=== PATIENT | female | born 1955 | race Caucasian/White ===

== ENCOUNTER 2019-12-19 07:56 | Outpatient (REF) | payer MEDICARE, SELFPAY ==
[2019-12-19 11:30] LABS: C Reactive Protein 0.76 mg/dL (< or = 0.50)
[2019-12-19 12:09] LABS: Erythrocyte Sedimentation Rate 5 MM/HR (0-20)
== END 2019-12-19 07:57 | disposition home or self-care (01) ==
LOC: HO.HMGCLDS 07:56
PROVIDERS: PCP Internal Medicine; Visit Provider Student in an Organized Health Care Education/Training Program
DX: M35.3 Polymyalgia rheumatica (principal); Z79.52 Long term (current) use of systemic steroids
CPT/HCPCS: 36415; 85652; 86140

== ENCOUNTER → 2019-12-23 14:12 | Outpatient (BNVA) | payer MEDICARE, SELFPAY | PROVIDERS: PCP Internal Medicine; Referring Provider Internal Medicine; Visit Provider Student in an Organized Health Care Education/Training Program | DX: M35.3 Polymyalgia rheumatica (principal); M65.4 Radial styloid tenosynovitis [de Quervain]; G56.02 Carpal tunnel syndrome, left upper limb; Z79.52 Long term (current) use of systemic steroids | CPT/HCPCS: 29125; 99214 ==

== ENCOUNTER 2020-02-13 09:19 | Outpatient (REF) | payer MEDICARE, SELFPAY ==
[2020-02-13 12:12] LABS: C Reactive Protein 0.81 mg/dL (< or = 0.50)
[2020-02-13 12:38] LABS: Erythrocyte Sedimentation Rate 6 MM/HR (0-20)
== END 2020-02-13 09:20 | disposition home or self-care (01) ==
LOC: HO.HMGCLDS 09:19
PROVIDERS: Student in an Organized Health Care Education/Training Program; PCP Internal Medicine; Visit Provider Internal Medicine
DX: M35.3 Polymyalgia rheumatica (principal); M81.0 Age-related osteoporosis without current pathological fracture; E55.9 Vitamin D deficiency, unspecified; E21.0 Primary hyperparathyroidism
CPT/HCPCS: 36415; 85652; 86140

== ENCOUNTER → 2020-02-16 11:11 | Outpatient (BNVA) | payer MEDICARE, SELFPAY | PROVIDERS: PCP Internal Medicine; Referring Provider Internal Medicine; Visit Provider Internal Medicine | DX: Z13.89 Encounter for screening for other disorder (principal) | CPT/HCPCS: Q3014 ==

== ENCOUNTER 2020-03-05 13:52 | Outpatient (REF) | payer MEDICARE, SELFPAY ==
[2020-03-05 17:02] LABS: C Reactive Protein 0.88 mg/dL (< or = 0.50)
[2020-03-05 18:31] LABS: Erythrocyte Sedimentation Rate 6 MM/HR (0-20)
== END 2020-03-05 13:53 | disposition home or self-care (01) ==
LOC: HO.HMGCLDS 13:52
PROVIDERS: PCP Internal Medicine; Visit Provider Student in an Organized Health Care Education/Training Program
DX: M35.3 Polymyalgia rheumatica (principal)
CPT/HCPCS: 36415; 85652; 86140

== ENCOUNTER → 2020-03-08 14:11 | Outpatient (BNVA) | payer MEDICARE, SELFPAY | PROVIDERS: PCP Internal Medicine; Visit Provider Student in an Organized Health Care Education/Training Program | DX: Z13.89 Encounter for screening for other disorder (principal) | CPT/HCPCS: Q3014 ==

== ENCOUNTER 2020-05-07 10:13 | Outpatient (REF) | payer MEDICARE, SELFPAY ==
[2020-05-07 11:38] LABS: C Reactive Protein 1.07 mg/dL (< or = 0.50)
[2020-05-07 13:31] LABS: Erythrocyte Sedimentation Rate 5 MM/HR (0-20)
== END 2020-05-07 10:14 | disposition home or self-care (01) ==
LOC: HO.HMGCLDS 10:13
PROVIDERS: PCP Internal Medicine; Visit Provider Student in an Organized Health Care Education/Training Program
DX: M35.3 Polymyalgia rheumatica (principal)
CPT/HCPCS: 36415; 85652; 86140

== ENCOUNTER → 2020-05-10 11:00 | Outpatient (BNVA) | payer MEDICARE, SELFPAY | PROVIDERS: PCP Internal Medicine; Visit Provider Student in an Organized Health Care Education/Training Program | DX: M35.3 Polymyalgia rheumatica (principal); Z79.52 Long term (current) use of systemic steroids; Z79.899 Other long term (current) drug therapy; Z87.891 Personal history of nicotine dependence | CPT/HCPCS: 99212 ==

== ENCOUNTER 2020-06-26 11:43 | Outpatient (REF) | payer MEDICARE, SELFPAY ==
[2020-06-26 14:40] LABS: C Reactive Protein 0.99 mg/dL (< or = 0.50)
[2020-06-26 15:14] LABS: Erythrocyte Sedimentation Rate 6 MM/HR (0-20)
== END 2020-06-26 11:44 | disposition home or self-care (01) ==
LOC: HO.HMGCLDS 11:43
PROVIDERS: PCP Internal Medicine; Visit Provider Student in an Organized Health Care Education/Training Program
DX: M35.3 Polymyalgia rheumatica (principal)
CPT/HCPCS: 36415; 85652; 86140

== ENCOUNTER → 2020-07-19 11:46 | Outpatient (BNVA) | payer MEDICARE, SELFPAY | PROVIDERS: PCP Internal Medicine; Visit Provider Student in an Organized Health Care Education/Training Program | DX: M35.3 Polymyalgia rheumatica (principal); Z79.52 Long term (current) use of systemic steroids | CPT/HCPCS: 99212 ==

== ENCOUNTER 2020-07-31 10:05 | Outpatient (REF) | payer MEDICARE, SELFPAY ==
[2020-07-31 12:00] LABS: Albumin Level 4.2 g/dL (3.5-5.0); Calcium 9.9 mg/dL (8.4-10.2)
[2020-07-31 12:10] LABS: C Reactive Protein 0.58 mg/dL (< or = 0.50)
[2020-07-31 12:26] LABS: Erythrocyte Sedimentation Rate 3 MM/HR (0-20)
[2020-07-31 12:29] LABS: Alanine Aminotransferase 21 U/L (0-31); Aspartate Amino Transferase 16 U/L (5-31); Cholesterol 228 mg/dL; Estimated Glomerular Filt Rate > 60; HDL Cholesterol 70 mg/dL; LDL Cholesterol Calculated 137 mg/dl; Phosphorus 3.1 mg/dL (2.7-4.5); Triglycerides 105 mg/dL; Vitamin D 25-OH Total 30.4 ng/mL (>30)
[2020-08-02 09:21] LABS: PTHI 76 pg/mL (14-64)
[2020-08-08 06:21] LABS: N-Telopeptide 14 (see note); NTXCreaRU 46 mg/dL (20-275)
== END 2020-07-31 10:06 | disposition home or self-care (01) ==
LOC: HO.HMGCLDS 10:05
PROVIDERS: PCP Internal Medicine; Referring Provider Internal Medicine; Visit Provider Student in an Organized Health Care Education/Training Program
DX: M35.3 Polymyalgia rheumatica (principal); E78.5 Hyperlipidemia, unspecified; M81.0 Age-related osteoporosis without current pathological fracture; E55.9 Vitamin D deficiency, unspecified
CPT/HCPCS: 36415; 80061; 82040; 82306; 82310; 82523; 82565; 83970; 84100; 84450; 84460; 85652; 86140

== ENCOUNTER 2020-09-18 10:00 | Outpatient (REF) | payer MEDICARE, SELFPAY ==
[2020-09-18 11:51] LABS: C Reactive Protein 0.82 mg/dL (< or = 0.50)
[2020-09-18 12:20] LABS: Erythrocyte Sedimentation Rate 5 MM/HR (0-20)
== END 2020-09-18 10:01 | disposition home or self-care (01) ==
LOC: HO.HMGCLDS 10:00
PROVIDERS: PCP Internal Medicine; Visit Provider Student in an Organized Health Care Education/Training Program
DX: M35.3 Polymyalgia rheumatica (principal)
CPT/HCPCS: 36415; 85652; 86140

== ENCOUNTER → 2020-09-26 09:58 | Outpatient (BNVA) | payer MEDICARE, SELFPAY | PROVIDERS: PCP Internal Medicine; Visit Provider Student in an Organized Health Care Education/Training Program | DX: M35.3 Polymyalgia rheumatica (principal); Z79.52 Long term (current) use of systemic steroids | CPT/HCPCS: 99212 ==

== ENCOUNTER 2020-11-14 09:48 | Outpatient (REF) | payer MEDICARE, SELFPAY ==
[2020-11-14 12:12] LABS: Alanine Aminotransferase 23 U/L (0-31); Albumin Level 4.3 g/dL (3.5-5.0); Alkaline Phosphatase 74 U/L (39-117); Anion Gap 11 (12-20); Aspartate Amino Transferase 16 U/L (5-31); Bilirubin Total 0.7 mg/dL (0.0-1.0); Blood Urea Nitrogen 9 mg/dL (9-16); C Reactive Protein 0.58 mg/dL (< or = 0.50); Carbon Dioxide 24 mmol/L (22-29); Chloride 110 mmol/L (96-108); Estimated Glomerular Filt Rate > 60; Glucose Random 105 mg/dL (60-115); Phosphorus 2.8 mg/dL (2.7-4.5); Potassium 4.1 mmol/L (3.3-5.1); Sodium 141 mmol/L (135-145); Total Protein 6.3 g/dL (6.5-8.0)
[2020-11-14 12:36] LABS: Erythrocyte Sedimentation Rate 6 MM/HR (0-20)
[2020-11-14 14:55] LABS: Vitamin D 25-OH Total 31.8 ng/mL (>30)
[2020-11-16 12:12] LABS: Calcium (PTHI) 9.9 mg/dL (8.6-10.4); PTHI 77 pg/mL (14-64)
[2020-11-21 15:01] LABS: N-Telopeptide 24 (see note); NTXCreaRU 75 mg/dL (20-275)
== END 2020-11-14 09:49 | disposition home or self-care (01) ==
LOC: HO.HMGCLDS 09:48
PROVIDERS: Absent Provider Internal Medicine; PCP Internal Medicine; Visit Provider Student in an Organized Health Care Education/Training Program
DX: M35.3 Polymyalgia rheumatica (principal); E55.9 Vitamin D deficiency, unspecified; M81.0 Age-related osteoporosis without current pathological fracture
CPT/HCPCS: 36415; 80053; 82306; 82523; 83970; 84100; 85652; 86140

== ENCOUNTER → 2020-11-19 12:35 | Outpatient (BNVA) | payer MEDICARE, SELFPAY | PROVIDERS: PCP Internal Medicine; Visit Provider Internal Medicine | DX: M81.0 Age-related osteoporosis without current pathological fracture (principal); E55.9 Vitamin D deficiency, unspecified; E21.0 Primary hyperparathyroidism; E04.9 Nontoxic goiter, unspecified; M35.3 Polymyalgia rheumatica; I10 Essential (primary) hypertension; E78.5 Hyperlipidemia, unspecified; Z87.891 Personal history of nicotine dependence; J30.1 Allergic rhinitis due to pollen; Z88.1 Allergy status to other antibiotic agents; Z91.040 Latex allergy status; Z88.8 Allergy status to other drugs, medicaments and biological substances; Z91.048 Other nonmedicinal substance allergy status; Z79.52 Long term (current) use of systemic steroids; Z79.899 Other long term (current) drug therapy | CPT/HCPCS: 99212 ==

== ENCOUNTER → 2020-11-28 07:57 | Outpatient (BNVA) | payer MEDICARE, SELFPAY | PROVIDERS: PCP Internal Medicine; Visit Provider Nurse Practitioner Family | DX: M35.3 Polymyalgia rheumatica (principal); Z79.52 Long term (current) use of systemic steroids | CPT/HCPCS: 99212 ==

== ENCOUNTER 2020-12-28 09:21 | Outpatient (REF) | payer MEDICARE, SELFPAY ==
[2020-12-28 11:54] LABS: Alanine Aminotransferase 18 U/L (0-31); Anion Gap 11 (12-20); Aspartate Amino Transferase 14 U/L (5-31); Blood Urea Nitrogen 14 mg/dL (9-16); C Reactive Protein 2.82 mg/dL (< or = 0.50); Calcium 9.8 mg/dL (8.4-10.2); Carbon Dioxide 24 mmol/L (22-29); Chloride 106 mmol/L (96-108); Cholesterol 222 mg/dL; Estimated Glomerular Filt Rate > 60; Glucose Fasting 110 mg/dL (60-99); HDL Cholesterol 62 mg/dL; LDL Cholesterol Calculated 139 mg/dl; Potassium 4.7 mmol/L (3.3-5.1); Sodium 136 mmol/L (135-145); Triglycerides 107 mg/dL
[2020-12-28 12:16] LABS: Erythrocyte Sedimentation Rate 7 MM/HR (0-20)
== END 2020-12-28 09:22 | disposition home or self-care (01) ==
LOC: HO.HMGCLDS 09:21
PROVIDERS: PCP Internal Medicine; Visit Provider Nurse Practitioner Family
DX: E78.5 Hyperlipidemia, unspecified (principal); I10 Essential (primary) hypertension; M35.3 Polymyalgia rheumatica
CPT/HCPCS: 36415; 80048; 80061; 84450; 84460; 85652; 86140

== ENCOUNTER 2021-01-04 08:10 | Outpatient (REF) | payer MEDICARE, SELFPAY | END 2021-01-04 08:11 | disposition home or self-care (01) | LOC: HO.MDS 08:10 | PROVIDERS: PCP Internal Medicine; Visit Provider Internal Medicine | DX: M81.0 Age-related osteoporosis without current pathological fracture (principal); Z79.83 Long term (current) use of bisphosphonates | CPT/HCPCS: 96365; J3489 ==

== ENCOUNTER 2021-01-09 12:56 | Outpatient (REF) | payer MEDICARE, SELFPAY ==
[2021-01-09 14:34] LABS: C Reactive Protein 1.23 mg/dL (< or = 0.50)
[2021-01-09 14:59] LABS: Erythrocyte Sedimentation Rate 7 MM/HR (0-20)
== END 2021-01-09 12:57 | disposition home or self-care (01) ==
LOC: HO.HMGCLDS 12:56
PROVIDERS: PCP Internal Medicine; Visit Provider Nurse Practitioner Family
DX: M35.3 Polymyalgia rheumatica (principal)
CPT/HCPCS: 36415; 85652; 86140

== ENCOUNTER 2021-02-06 10:23 | Outpatient (REF) | payer MEDICARE, SELFPAY ==
[2021-02-06 11:53] LABS: C Reactive Protein 1.04 mg/dL (< or = 0.50)
[2021-02-06 12:21] LABS: Erythrocyte Sedimentation Rate 2 MM/HR (0-20)
== END 2021-02-06 10:24 | disposition home or self-care (01) ==
LOC: HO.HMGCLDS 10:23
PROVIDERS: PCP Internal Medicine; Visit Provider Nurse Practitioner Family
DX: M35.3 Polymyalgia rheumatica (principal)
CPT/HCPCS: 36415; 85652; 86140

== ENCOUNTER → 2021-02-13 09:27 | Outpatient (BNVA) | payer MEDICARE, SELFPAY | PROVIDERS: PCP Internal Medicine; Visit Provider Nurse Practitioner Family | DX: M35.3 Polymyalgia rheumatica (principal); Z79.52 Long term (current) use of systemic steroids | CPT/HCPCS: 99212 ==

== ENCOUNTER 2021-04-10 11:11 | Outpatient (REF) | payer MEDICARE, SELFPAY ==
[2021-04-10 14:39] LABS: Erythrocyte Sedimentation Rate 5 MM/HR (0-20)
== END 2021-04-10 11:12 | disposition home or self-care (01) ==
LOC: HO.HMGCLDS 11:11
PROVIDERS: PCP Internal Medicine; Visit Provider Nurse Practitioner Family
DX: M35.3 Polymyalgia rheumatica (principal)
CPT/HCPCS: 36415; 85652; 86140

== ENCOUNTER → 2021-04-17 09:33 | Outpatient (BNVA) | payer MEDICARE, SELFPAY | PROVIDERS: PCP Internal Medicine; Visit Provider Nurse Practitioner Family | DX: M35.3 Polymyalgia rheumatica (principal); Z79.52 Long term (current) use of systemic steroids | CPT/HCPCS: 99212 ==

== ENCOUNTER 2021-04-25 08:52 | Outpatient (REF) | payer MEDICARE, SELFPAY ==
--- NOTE | ~2021-04-25 | XR_ITS ---
EXAMINATION: BILATERAL HAND/WRIST CLINICAL INFORMATION: Pain left hand. COMPARISON: None TECHNIQUE: 3 views each hand/wrist FINDINGS: BILATERAL HAND/WRIST: there is no visible acute fracture, dislocation subluxation. Minimal loss of PIP and DIP joint space without bony erosive changes or periarticular spurring. The soft tissues are normal. XR/XR hand wrist RT IMPRESSION: Mild early degenerative changes PIP and DIP joints. No visible acute fracture or dislocation seen.
--- NOTE | ~2021-04-25 | XR_ITS ---
EXAMINATION: BILATERAL HAND/WRIST CLINICAL INFORMATION: Pain left hand. COMPARISON: None TECHNIQUE: 3 views each hand/wrist FINDINGS: BILATERAL HAND/WRIST: there is no visible acute fracture, dislocation subluxation. Minimal loss of PIP and DIP joint space without bony erosive changes or periarticular spurring. The soft tissues are normal. XR/XR hand wrist LT IMPRESSION: Mild early degenerative changes PIP and DIP joints. No visible acute fracture or dislocation seen.
[2021-04-25 11:26] LABS: Baso%MD 0.2 %; Eos%MD 1.2 %; Hematocrit 42.7 % (37.0-47.0); Hemoglobin 14.5 g/dl (12.0-16.0); IG%MD 0.5 %; Lymph%MD 21.2 %; Mean Corpuscular Hemoglobin 33.1 pg (27.0-33.0); Mean Corpuscular Volume 97.5 fL (80.0-98.0); Mean Platelet Volume 12.5 fL (9.4-12.3); Mono%MD 6.4 %; Neut%MD 70.5 %; Platelet Count 136 X10*3/uL (160-400); Red Blood Count 4.38 X10*6/uL (4.20-5.50); Red Cell Distribution Width 13.9 % (11.0-16.0); White Blood Count 9.3 X10*3/uL (4.8-10.8)
[2021-04-25 11:55] LABS: Alanine Aminotransferase 18 U/L (0-31); Albumin Level 4.2 g/dL (3.5-5.0); Alkaline Phosphatase 63 U/L (39-117); Anion Gap 10 (12-20); Aspartate Amino Transferase 16 U/L (5-31); Bilirubin Total 0.7 mg/dL (0.0-1.0); Blood Urea Nitrogen 12 mg/dL (9-16); C Reactive Protein 0.63 mg/dL (< or = 0.50); Calcium 10.1 mg/dL (8.4-10.2); Carbon Dioxide 27 mmol/L (22-29); Chloride 108 mmol/L (96-108); Estimated Glomerular Filt Rate > 60; Glucose Random 98 mg/dL (60-115); Potassium 3.9 mmol/L (3.3-5.1); Sodium 141 mmol/L (135-145); Total Protein 6.3 g/dL (6.5-8.0)
[2021-04-25 12:07] LABS: Rheumatoid Factor < 15.0 IU/mL (<15.0)
[2021-04-25 12:10] LABS: Erythrocyte Sedimentation Rate 2 MM/HR (0-20)
[2021-04-25 12:22] LABS: Band Neutrophils Percent 2 % (3-5); Basophils Abs Manual 0.1 X10*3/uL (0.0-0.2); Basophils Percent Manual 1 % (0-2); Eosinophils Absolute Manual 0.1 X10*3/uL (0.0-0.4); Eosinophils Percent Manual 1 % (0-4); Large Platelet PRESENT; Lymphocytes Absolute Manual 1.7 X10*3/uL (1.2-4.9); Lymphocytes Percent Manual 18 % (20-40); Monocytes Absolute Manual 0.6 X10*3/uL (0.1-1.2); Monocytes Percent Manual 6 % (2-11); Neutrophils Absolute Manual 6.9 X10*3/uL (2.0-8.3); Neutrophils Percent Manual 72 % (45-73); Platelet Estimate SLIGHTLY DECREASED (NORMAL); Platelet Morphology Comment NOTED; RBC Morphology NORMAL
[2021-04-29 11:17] LABS: Cyclic Citrullinated Peptide <16 UNITS
== END 2021-04-25 08:53 | disposition home or self-care (01) ==
LOC: HO.HMGCX 08:52
PROVIDERS: PCP Internal Medicine; Visit Provider Nurse Practitioner Family
DX: M79.641 Pain in right hand (principal); M79.642 Pain in left hand
CPT/HCPCS: 36415; 73110; 73130; 80053; 85007; 85027; 85652; 86140; 86200; 86431

== ENCOUNTER 2021-06-06 11:52 | Outpatient (REF) | payer MEDICARE, SELFPAY ==
[2021-06-06 14:15] LABS: C Reactive Protein 0.78 mg/dL (< or = 0.50)
[2021-06-06 14:49] LABS: Erythrocyte Sedimentation Rate 7 MM/HR (0-20)
== END 2021-06-06 11:53 | disposition home or self-care (01) ==
LOC: HO.HMGCLDS 11:52
PROVIDERS: Visit Provider Nurse Practitioner Family
DX: M35.3 Polymyalgia rheumatica (principal)
CPT/HCPCS: 36415; 85652; 86140

== ENCOUNTER → 2021-06-11 10:27 | Outpatient (BNVA) | payer MEDICARE, SELFPAY | PROVIDERS: PCP Internal Medicine; Visit Provider Nurse Practitioner Family | DX: M35.3 Polymyalgia rheumatica (principal); Z79.52 Long term (current) use of systemic steroids | CPT/HCPCS: 99212 ==

== ENCOUNTER 2021-07-05 07:38 | Outpatient (REF) | payer MEDICARE, SELFPAY ==
[2021-07-05 11:44] LABS: Cholesterol 221 mg/dL; Glucose Fasting 110 mg/dL (60-99); HDL Cholesterol 64 mg/dL; LDL Cholesterol Calculated 140 mg/dl; Triglycerides 86 mg/dL
== END 2021-07-05 07:39 | disposition home or self-care (01) ==
LOC: HO.HMGCLDS 07:38
PROVIDERS: Visit Provider Internal Medicine
DX: Z00.01 Encounter for general adult medical examination with abnormal findings (principal); Z13.220 Encounter for screening for lipoid disorders; Z13.29 Encounter for screening for other suspected endocrine disorder; R73.01 Impaired fasting glucose; E78.5 Hyperlipidemia, unspecified; E78.00 Pure hypercholesterolemia, unspecified; I10 Essential (primary) hypertension; Z79.52 Long term (current) use of systemic steroids
CPT/HCPCS: 36415; 80061; 82947

== ENCOUNTER 2021-09-23 09:54 | Outpatient (REF) | payer MEDICARE, SELFPAY ==
[2021-09-23 11:48] LABS: C Reactive Protein 1.41 mg/dL (< or = 0.50)
[2021-09-23 12:15] LABS: Erythrocyte Sedimentation Rate 7 MM/HR (0-20)
== END 2021-09-23 09:55 | disposition home or self-care (01) ==
LOC: HO.HMGCLDS 09:54
PROVIDERS: Visit Provider Nurse Practitioner Family
DX: M35.3 Polymyalgia rheumatica (principal)
CPT/HCPCS: 36415; 85652; 86140

== ENCOUNTER → 2021-09-24 07:49 | Outpatient (BNVA) | payer MEDICARE, SELFPAY | PROVIDERS: PCP Internal Medicine; Visit Provider Nurse Practitioner Family | DX: M35.3 Polymyalgia rheumatica (principal); Z79.52 Long term (current) use of systemic steroids | CPT/HCPCS: Q3014 ==

== ENCOUNTER 2021-10-31 11:02 | Outpatient (REF) | payer MEDICARE, SELFPAY ==
[2021-10-31 14:38] LABS: Alanine Aminotransferase 16 U/L (0-31); Albumin Level 4.2 g/dL (3.5-5.0); Alkaline Phosphatase 76 U/L (39-117); Anion Gap 14 (12-20); Aspartate Amino Transferase 14 U/L (5-31); Bilirubin Total 0.4 mg/dL (0.0-1.0); Blood Urea Nitrogen 9 mg/dL (9-16); Calcium 9.9 mg/dL (8.4-10.2); Carbon Dioxide 22 mmol/L (22-29); Chloride 108 mmol/L (96-108); Estimated Glomerular Filt Rate > 60; Glucose Random 103 mg/dL (60-115); Phosphorus 2.8 mg/dL (2.7-4.5); Potassium 4.2 mmol/L (3.3-5.1); Sodium 140 mmol/L (135-145); Total Protein 6.4 g/dL (6.5-8.0)
[2021-10-31 15:00] LABS: Erythrocyte Sedimentation Rate 5 MM/HR (0-20)
[2021-11-01 13:12] LABS: PTHI 76 pg/mL (16-77)
== END 2021-10-31 11:03 | disposition home or self-care (01) ==
LOC: HO.HMGCLDS 11:02
PROVIDERS: Internal Medicine; PCP Internal Medicine; Visit Provider Nurse Practitioner Family
DX: M81.0 Age-related osteoporosis without current pathological fracture (principal); M35.3 Polymyalgia rheumatica; E55.9 Vitamin D deficiency, unspecified
CPT/HCPCS: 36415; 80053; 82306; 83970; 84100; 85652; 86140

== ENCOUNTER → 2021-11-08 09:07 | Outpatient (BNVA) | payer MEDICARE, SELFPAY | PROVIDERS: PCP Internal Medicine; Visit Provider Nurse Practitioner Family | DX: M35.3 Polymyalgia rheumatica (principal); Z79.52 Long term (current) use of systemic steroids | CPT/HCPCS: 99212 ==

== ENCOUNTER → 2021-11-25 12:26 | Outpatient (BNVA) | payer MEDICARE, SELFPAY | PROVIDERS: PCP Internal Medicine; Visit Provider Internal Medicine | DX: M81.0 Age-related osteoporosis without current pathological fracture (principal); E55.9 Vitamin D deficiency, unspecified; E21.3 Hyperparathyroidism, unspecified; E04.9 Nontoxic goiter, unspecified | CPT/HCPCS: 99212 ==

== ENCOUNTER 2021-12-18 09:51 | Outpatient (REF) | payer MEDICARE, SELFPAY ==
--- NOTE | ~2021-12-18 | US_ITS ---
EXAMINATION: US THYROID CLINICAL INFORMATION: Nontoxic goiter, unspecified. COMPARISON: None TECHNIQUE: Linear transducer grayscale and color Doppler examination with attention to the region of the thyroid. FINDINGS: SIZE: Measurements of the thyroid lobes and nodules are given in sagittal, anteroposterior and transverse dimensions respectively. Right Thyroid Lobe: 5.2 x 1.8 x 1.8 cm, volume 8.8 mL. Parenchyma: The gland echotexture is homogeneous. Thyroid vascularity is normal. Left Thyroid Lobe: 5.3 x 1.7 x 1.9 cm, volume 9.0 mL. Parenchyma: The gland echotexture is homogeneous. Thyroid vascularity is normal. Isthmus: 0.3 cm in maximum AP dimension. Estimated total number of nodules greater than or equal to 1 cm: 0. Agricultural Research Director nodules are described as follows: 1. Location: Left lower pole. Size: 0.9 x 0.4 x 0.6 cm, volume 0.12 mL. Nodule characteristics: Composition: Spongiform (0). ACR TI-RADS total points: 0 ACR TI-RADS category: 1 2. Location: Left lower pole. Size: 0.6 x 0.4 x 0.4 cm, volume 0.05 mL. Nodule characteristics: Composition: Spongiform (0). ACR TI-RADS total points: 0 ACR TI-RADS category: 1 NODES: No lymphadenopathy is seen in the tissue surrounding the thyroid gland. US/US thyroid IMPRESSION: Upper normal-size thyroid gland. Small bilateral thyroid nodules. ACR TI-RADS RECOMMENDATION REFERENCE: Ultrasound-guided fine-needle aspiration, followup ultrasound, no further follow up. * TR1 (0 point) and TR 2 (2 points): No FNA or follow up. * TR3 (3 points): FNA if more than or equal to 2.5 cm in maximum dimension, followup ultrasound in 1, 3 and 5 years if 1.5 to 2.4 cm in maximum dimension. * TR4 (4-6 points): FNA if more than or equal to 1.5 cm in maximum dimension, followup ultrasound in 1, 2, 3 and 5 years if 1 to 1.4 cm in maximum dimension. * TR5 (more than or equal to 7 points): FNA if more than or equal to 1 cm in maximum dimension, followup ultrasound every year for 5 years if 0.5 to 0.9 cm in maximum dimension. * TR3, TR4 or TR5 nodules that are below the size threshold for followup receive no follow up.
== END 2021-12-18 09:52 | disposition home or self-care (01) ==
LOC: HO.HMGCX 09:51
PROVIDERS: PCP Internal Medicine; Visit Provider Internal Medicine
DX: E04.9 Nontoxic goiter, unspecified (principal)
CPT/HCPCS: 76536

== ENCOUNTER 2021-12-24 09:54 | Outpatient (REF) | payer MEDICARE, SELFPAY ==
--- NOTE | ~2021-12-24 | XR_ITS ---
EXAMINATION: XR SHOULDER, RIGHT XR SHOULDER, LEFT CLINICAL INFORMATION: Bilateral shoulder pain. COMPARISON: Chest radiographs 08/06/2018 TECHNIQUE: Each shoulder is imaged in 4 views. There are a total of 8 views. FINDINGS: Right: Normal bony mineralization. No fracture, dislocation, destructive process. The acromioclavicular alignment is normal. There are degenerative changes acromioclavicular joint. Minor spurring is present inferior medial humeral head and at the inferior glenoid rim likely related to the inferior glenohumeral ligament. No joint glenohumeral narrowing or erosive change. Axial view shows fine calcification adjacent to the lesser tuberosity likely involving the subscapularis. Left: Normal bony mineralization. No fracture, dislocation, destructive process. The acromioclavicular alignment is normal. There are degenerative changes acromioclavicular joint. Minor spurring is present inferior medial humeral head and at the inferior glenoid rim likely related to the inferior glenohumeral ligament. No glenohumeral joint narrowing or erosive change. There is mild elevation of the humeral head which may suggest rotator cuff degeneration. No visible rotator cuff calcifications. XR/XR shoulder LT min 2V IMPRESSION: Right: -Degenerative changes acromioclavicular joint. -Calcific tendinosis in region of distal subscapularis. Left: -Degenerative changes acromioclavicular joint. -Mild elevation humeral head which may be associated with rotator cuff degeneration. No visible rotator cuff calcification.
--- NOTE | ~2021-12-24 | XR_ITS ---
EXAMINATION: XR SHOULDER, RIGHT XR SHOULDER, LEFT CLINICAL INFORMATION: Bilateral shoulder pain. COMPARISON: Chest radiographs 08/06/2018 TECHNIQUE: Each shoulder is imaged in 4 views. There are a total of 8 views. FINDINGS: Right: Normal bony mineralization. No fracture, dislocation, destructive process. The acromioclavicular alignment is normal. There are degenerative changes acromioclavicular joint. Minor spurring is present inferior medial humeral head and at the inferior glenoid rim likely related to the inferior glenohumeral ligament. No joint glenohumeral narrowing or erosive change. Axial view shows fine calcification adjacent to the lesser tuberosity likely involving the subscapularis. Left: Normal bony mineralization. No fracture, dislocation, destructive process. The acromioclavicular alignment is normal. There are degenerative changes acromioclavicular joint. Minor spurring is present inferior medial humeral head and at the inferior glenoid rim likely related to the inferior glenohumeral ligament. No glenohumeral joint narrowing or erosive change. There is mild elevation of the humeral head which may suggest rotator cuff degeneration. No visible rotator cuff calcifications. XR/XR shoulder RT min 2V IMPRESSION: Right: -Degenerative changes acromioclavicular joint. -Calcific tendinosis in region of distal subscapularis. Left: -Degenerative changes acromioclavicular joint. -Mild elevation humeral head which may be associated with rotator cuff degeneration. No visible rotator cuff calcification.
[2021-12-24 12:17] LABS: C Reactive Protein 0.79 mg/dL (< or = 0.50)
[2021-12-24 12:18] LABS: Erythrocyte Sedimentation Rate 9 MM/HR (0-20)
== END 2021-12-24 09:55 | disposition home or self-care (01) ==
LOC: HO.HMGCX 09:54
PROVIDERS: PCP Internal Medicine; Visit Provider Nurse Practitioner Family
DX: M25.511 Pain in right shoulder (principal); M25.512 Pain in left shoulder; M35.3 Polymyalgia rheumatica
CPT/HCPCS: 36415; 73030; 85652; 86140

== ENCOUNTER 2022-01-13 09:47 | Outpatient (REF) | payer MEDICARE, SELFPAY ==
[2022-01-13 12:27] LABS: Erythrocyte Sedimentation Rate 7 MM/HR (0-20)
[2022-01-13 12:38] LABS: Blood Urea Nitrogen 8 mg/dL (9-16); C Reactive Protein 0.83 mg/dL (< or = 0.50); Estimated Glomerular Filt Rate > 60
== END 2022-01-13 09:48 | disposition home or self-care (01) ==
LOC: HO.HMGCLDS 09:47
PROVIDERS: Absent Provider Nurse Practitioner Family; PCP Internal Medicine; Visit Provider Internal Medicine
DX: M81.0 Age-related osteoporosis without current pathological fracture (principal); M35.3 Polymyalgia rheumatica
CPT/HCPCS: 36415; 82565; 84520; 85652; 86140

== ENCOUNTER 2022-01-15 10:54 | Outpatient (REF) | payer MEDICARE, SELFPAY | END 2022-01-15 10:55 | disposition home or self-care (01) | LOC: HO.MDS 10:54 | PROVIDERS: Visit Provider Internal Medicine | DX: M81.0 Age-related osteoporosis without current pathological fracture (principal) | CPT/HCPCS: 96365; J3489 ==

== ENCOUNTER 2022-01-22 09:10 | Outpatient (REF) | payer MEDICARE, SELFPAY ==
[2022-01-22 11:54] LABS: Cholesterol 209 mg/dL; Glucose Fasting 98 mg/dL (60-99); HDL Cholesterol 57 mg/dL; LDL Cholesterol Calculated 130 mg/dl; Triglycerides 111 mg/dL
== END 2022-01-22 09:11 | disposition home or self-care (01) ==
LOC: HO.HMGCLDS 09:10
PROVIDERS: PCP Internal Medicine; Visit Provider Internal Medicine
DX: R73.01 Impaired fasting glucose (principal); E78.5 Hyperlipidemia, unspecified
CPT/HCPCS: 36415; 80061; 82947

== ENCOUNTER → 2022-02-07 11:50 | Outpatient (BNVA) | payer MEDICARE, SELFPAY | PROVIDERS: PCP Internal Medicine; Referring Provider Internal Medicine; Visit Provider Nurse Practitioner Family | DX: M35.3 Polymyalgia rheumatica (principal); M19.011 Primary osteoarthritis, right shoulder; M19.012 Primary osteoarthritis, left shoulder; Z79.52 Long term (current) use of systemic steroids | CPT/HCPCS: 99212 ==

== ENCOUNTER 2022-03-21 10:03 | Outpatient (REF) | payer MEDICARE, SELFPAY ==
[2022-03-21 12:06] LABS: C Reactive Protein 0.63 mg/dL (< or = 0.50)
[2022-03-21 12:30] LABS: Erythrocyte Sedimentation Rate 6 MM/HR (0-20)
== END 2022-03-21 10:04 | disposition home or self-care (01) ==
LOC: HO.HMGCLDS 10:03
PROVIDERS: PCP Internal Medicine; Visit Provider Nurse Practitioner Family
DX: M35.3 Polymyalgia rheumatica (principal)
CPT/HCPCS: 36415; 85652; 86140

== ENCOUNTER → 2022-03-24 13:15 | Outpatient (BNVA) | payer MEDICARE, SELFPAY | PROVIDERS: PCP Internal Medicine; Visit Provider Nurse Practitioner Family | DX: M35.3 Polymyalgia rheumatica (principal); M81.0 Age-related osteoporosis without current pathological fracture; M19.011 Primary osteoarthritis, right shoulder; M19.012 Primary osteoarthritis, left shoulder; Z79.52 Long term (current) use of systemic steroids | CPT/HCPCS: Q3014 ==

== ENCOUNTER 2022-04-22 11:20 | Outpatient (REF) | payer MEDICARE, SELFPAY ==
[2022-04-22 14:38] LABS: C Reactive Protein 0.97 mg/dL (< or = 0.50)
[2022-04-22 15:00] LABS: Erythrocyte Sedimentation Rate 7 MM/HR (0-20)
== END 2022-04-22 11:21 | disposition home or self-care (01) ==
LOC: HO.HMGCLDS 11:20
PROVIDERS: Nurse Practitioner Family; Visit Provider Internal Medicine
DX: M35.3 Polymyalgia rheumatica (principal)
CPT/HCPCS: 36415; 85652; 86140

== ENCOUNTER → 2022-05-08 13:03 | Outpatient (BNVA) | payer MEDICARE, SELFPAY | PROVIDERS: PCP Internal Medicine; Visit Provider Nurse Practitioner Family | DX: M35.3 Polymyalgia rheumatica (principal); M19.012 Primary osteoarthritis, left shoulder; M19.011 Primary osteoarthritis, right shoulder; M81.0 Age-related osteoporosis without current pathological fracture; Z79.52 Long term (current) use of systemic steroids | CPT/HCPCS: 99212 ==

== ENCOUNTER 2022-05-14 10:40 | Outpatient (REF) | payer MEDICARE, SELFPAY ==
[2022-05-14 14:20] LABS: C Reactive Protein 1.38 mg/dL (< or = 0.50)
[2022-05-14 14:40] LABS: Erythrocyte Sedimentation Rate 9 MM/HR (0-20)
== END 2022-05-14 10:41 | disposition home or self-care (01) ==
LOC: HO.HMGCLDS 10:40
PROVIDERS: PCP Internal Medicine; Visit Provider Nurse Practitioner Family
DX: M35.3 Polymyalgia rheumatica (principal)
CPT/HCPCS: 36415; 85652; 86140

== ENCOUNTER 2022-07-01 12:00 | Outpatient (REF) | payer MEDICARE, SELFPAY ==
[2022-07-01 14:53] LABS: Erythrocyte Sedimentation Rate 16 MM/HR (0-20)
== END 2022-07-01 12:01 | disposition home or self-care (01) ==
LOC: HO.HMGCLDS 12:00
PROVIDERS: PCP Internal Medicine; Visit Provider Nurse Practitioner Family
DX: M25.50 Pain in unspecified joint (principal)
CPT/HCPCS: 36415; 85652; 86140

== ENCOUNTER 2022-07-14 11:12 | Outpatient (REF) | payer MEDICARE, SELFPAY ==
--- NOTE | ~2022-07-14 | XR_ITS ---
EXAMINATION: XR HAND BILATERAL CLINICAL INFORMATION: Pain. COMPARISON: None. TECHNIQUE: 3 views of each hand. FINDINGS: RIGHT HAND: There is mild reduction in the PIP and DIP joint spaces with no visible fracture, dislocation or subluxation. The MCP and intercarpal joint spaces are maintained normal. No acute fracture, dislocation or subluxation seen. LEFT HAND: There is loss of PIP and DIP joint spaces without bony erosive changes or periarticular spurring. No visible acute fracture, dislocation or subluxation seen. The soft tissues are normal. XR/XR hand LT min 3V IMPRESSION: Degenerative arthritic changes PIP and DIP joints. No visible acute fracture, dislocation or subluxation seen.
--- NOTE | ~2022-07-14 | XR_ITS ---
EXAMINATION: XR HAND BILATERAL CLINICAL INFORMATION: Pain. COMPARISON: None. TECHNIQUE: 3 views of each hand. FINDINGS: RIGHT HAND: There is mild reduction in the PIP and DIP joint spaces with no visible fracture, dislocation or subluxation. The MCP and intercarpal joint spaces are maintained normal. No acute fracture, dislocation or subluxation seen. LEFT HAND: There is loss of PIP and DIP joint spaces without bony erosive changes or periarticular spurring. No visible acute fracture, dislocation or subluxation seen. The soft tissues are normal. XR/XR hand RT min 3V IMPRESSION: Degenerative arthritic changes PIP and DIP joints. No visible acute fracture, dislocation or subluxation seen.
[2022-07-14 16:39] LABS: MANUAL DIFF FLAG NO
[2022-07-14 16:45] LABS: Basophils Percent Auto 0.3 % (0-2); Eosinophils Absolute Auto 0.1 X10*3/uL (0.0-0.4); Hematocrit 38.2 % (37.0-47.0); Hemoglobin 13.1 g/dl (12.0-16.0); Imm Gran Abs Auto 0.04 X10*3/uL (0.00-0.03); Imm Gran Pct Auto 0.4 % (0.0-0.4); Lymphocytes Absolute Auto 2.7 X10*3/uL (1.2-4.9); Mean Corpuscular HGB Conc 34.3 g/dl (31.0-35.0); Mean Corpuscular Hemoglobin 32.2 pg (27.0-33.0); Mean Corpuscular Volume 93.9 fL (80.0-98.0); Mean Platelet Volume 12.4 fL (9.4-12.3); Monocytes Absolute Auto 0.6 X10*3/uL (0.1-1.2); Monocytes Percent Auto 5.7 % (2-11); Neutrophils Absolute Auto 6.9 x10*3/uL (2.0-8.3); Neutrophils Percent Auto 66.6 % (45-73); Platelet Count 168 X10*3/uL (160-400); Red Blood Count 4.07 X10*6/uL (4.20-5.50); Red Cell Distribution Width 13.7 % (11.0-16.0); White Blood Count 10.3 X10*3/uL (4.8-10.8)
[2022-07-14 17:05] LABS: Alanine Aminotransferase 12 U/L (0-31); Albumin Level 4.1 g/dL (3.5-5.0); Alkaline Phosphatase 78 U/L (39-117); Anion Gap 11 (12-20); Aspartate Amino Transferase 12 U/L (5-31); Bilirubin Total 0.4 mg/dL (0.0-1.0); Blood Urea Nitrogen 13 mg/dL (9-16); C Reactive Protein 1.15 mg/dL (< or = 0.50); Calcium 10.2 mg/dL (8.4-10.2); Carbon Dioxide 24 mmol/L (22-29); Chloride 108 mmol/L (96-108); Estimated Glomerular Filt Rate > 60; Glucose Random 138 mg/dL (60-115); Sodium 139 mmol/L (135-145)
[2022-07-14 17:41] LABS: Erythrocyte Sedimentation Rate 10 MM/HR (0-20)
[2022-07-14 18:48] LABS: Rheumatoid Factor < 13.0 IU/mL (<15.0)
[2022-07-17 12:13] LABS: Cyclic Citrullinated Peptide <16 UNITS
== END 2022-07-14 11:13 | disposition home or self-care (01) ==
LOC: HO.HMGCX 11:12
PROVIDERS: PCP Internal Medicine; Visit Provider Nurse Practitioner Family
DX: M79.641 Pain in right hand (principal); M79.642 Pain in left hand; M35.3 Polymyalgia rheumatica; M81.0 Age-related osteoporosis without current pathological fracture; Z79.52 Long term (current) use of systemic steroids
CPT/HCPCS: 36415; 73130; 80053; 85025; 85652; 86140; 86200; 86431; 99212

== ENCOUNTER 2022-07-25 09:54 | Outpatient (REF) | payer MEDICARE, SELFPAY ==
[2022-07-25 11:43] LABS: C Reactive Protein 2.31 mg/dL (< or = 0.50)
[2022-07-25 12:23] LABS: Erythrocyte Sedimentation Rate 8 MM/HR (0-20)
== END 2022-07-25 09:55 | disposition home or self-care (01) ==
LOC: HO.HMGCLDS 09:54
PROVIDERS: PCP Internal Medicine; Visit Provider Nurse Practitioner Family
DX: M35.3 Polymyalgia rheumatica (principal)
CPT/HCPCS: 36415; 85652; 86140

== ENCOUNTER → 2022-07-30 10:02 | Outpatient (BNVA) | payer MEDICARE, SELFPAY | PROVIDERS: PCP Internal Medicine; Visit Provider Nurse Practitioner Family | DX: M06.00 Rheumatoid arthritis without rheumatoid factor, unspecified site (principal); M35.3 Polymyalgia rheumatica; M81.0 Age-related osteoporosis without current pathological fracture; Z79.52 Long term (current) use of systemic steroids | CPT/HCPCS: 99212 ==

== ENCOUNTER 2022-07-31 09:46 | Outpatient (REF) | payer MEDICARE, SELFPAY ==
[2022-08-01 02:57] LABS: HBS Num1 0.18 mIU/mL (0-7.99); HBc Num1 0.08 S/CO (0.00-0.79); HBsAGNum1 0.29 S/CO (0.00-0.99); Hepatitis A Antibody IgM 0.15 Index (0-0.79); Hepatitis B Core Antibody Nonreactive (Nonreactive); Hepatitis B Surface Antigen Negative (Negative); ~HepC Num1 0.08 S/CO (0.00-0.79); ~Hepatitis A Antibody IgM Nonreactive (Nonreactive); ~Hepatitis B Surface Antibody NONREACTIVE (Nonreactive); ~Hepatitis C Antibody Nonreactive (Nonreactive)
[2022-08-02 22:32] LABS: TS Negative Control Passed; TS Panel A 0; TS Panel B 3; TS Positive Control Passed; TSpotTB Negative (Negative)
[2022-08-04 21:44] LABS: Antibody to SS-A Antigen <1.0 NEG AI (<1.0 NEG); Antibody to SS-B Antigen <1.0 NEG AI (<1.0 NEG)
== END 2022-07-31 09:47 | disposition home or self-care (01) ==
LOC: HO.HMGCLDS 09:46
PROVIDERS: Visit Provider Nurse Practitioner Family
DX: M06.00 Rheumatoid arthritis without rheumatoid factor, unspecified site (principal); H04.123 Dry eye syndrome of bilateral lacrimal glands
CPT/HCPCS: 36415; 86235; 86481; 86704; 86706; 86709; 86803; 87340

== ENCOUNTER 2022-09-10 10:06 | Outpatient (AMB) | payer MEDICARE, SELFPAY ==
--- NOTE | 2022-09-10 10:10 | MHC.OFFVIS ---
Intake Vital Signs 09/10/22 10:12 Height 5 ft 3 in Weight 153 lb 10.595 oz BMI 27.2 BP 112/64 Blood Pressure Location Rt brachial Position Sitting Pulse 77 Pulse Source Pulse Oximeter Temp 97.8 F Temp Source Skin Pulse Oximetry (%) 95 Intake Visit Reasons: PMR Intake Note: Pt seen today for PMR follow up. Last visit was given pred 10mg daily for 1 week then 5mg daily, states she felt better on 10mg. She reports stopped taking tylenol 650mg because of GI upset. Concerned with side effects of MTX and Plaquenil. Professional Caster Required: No Accompanied by: Self / Same As Patient Allergies nicotine [NICOTINE] Allergy (Intermediate, Verified 09/10/22 10:15) NICOTINE PATCH-BLISTERS, skin irritation/blisters, skin irritation/blisters amoxicillin [From AUGMENTIN] Adverse Reaction (Intermediate, Verified 09/10/22 10:15) VOMITING/DIARRHEA Latex Allergy (Mild, Uncoded 09/10/22 10:15) Rash Statins Support Adverse Reaction (Intermediate, Uncoded 09/10/22 10:15) muscle cramps Medication List - Last Reconciled 09/10/22 by Darryn Mota MD amlodipine 5 mg PO DAILY cholecalciferol (vitamin D3) 25 mcg PO DAILY famotidine 40 mg PO DAILY prednisone 5 mg PO DAILY zoledronic [id number] 5 mg/100 mL (Reclast) 5 ea IV .once a year HPI HPI Comments History of Present Illness Details The patient presents for evaluation of her PMR and or RA. She is currently down to 5 mg daily prednisone. There is some discomfort in the shoulders and hips. The wrists are occasionally uncomfortable but she feels with the current dose of prednisone she is reasonably stable. She relates she has been on the prednisone for about 4 years. There is no history of psoriasis as far she can recall. [facility] Medical History Dyslipidemia Essential hypertension Goiter Hyperparathyroidism Impaired fasting glucose Osteopenia of femoral neck Osteoporosis Polymyalgia rheumatica Primary hyperparathyroidism Vitamin D deficiency Surgical History History of colonoscopy History of removal of cyst Family History Father HTN (hypertension) High cholesterol Dementia Mother Pneumonia Brother No problems noted. Sister No problems noted. Maternal Grandfather Unknown family medical history Maternal Grandmother Pneumonia Paternal Grandfather Unknown family medical history Paternal Grandmother Unknown family medical history Daughter No problems noted. Daughter No problems noted. Social History Household Members: None Housing: House Are you a primary home care nurse to a significant other at home: No Do you presently have visiting nurse or other home services: No Alcohol intake: current Alcohol intake frequency: a few times a month Alcohol type: wine Patient Tobacco Use Status: Former Tobacco user e-Cigarette/Vaping Use: Never Used service: No Current occupational status: retired Cognitive needs: No Hearing needs: No Vision needs: No Review of Systems Const Details: Negative for appetite change, weight change, fever, chills, malaise and fatigue Eyes Details: Negative for vision change, dry eyes,headaches and dizziness ENT Details: Negative for hearing change, tinnitus, oral ulcer, nose bleeds and oral dryness. Card Details: Negative chest pain, edema and syncope Resp Details: Negative for SOB, cough and wheezing GI Details: Negative indigestion/heartburn, nausea, abdominal pain, bowel changes, diarrhea, constipation and bloody stool. Neuro Details: Negative for epilepsy, palsy, stroke, changes in speech, tingling and weakness Endo Details: Negative for polyuria and polydypsia Edgar/Lymph Details: Negative for excessive bruising or bleeding. Physical Exam Vital Signs: Last Vital Signs Temp 97.8 F 09/10/22 10:12 Pulse 77 09/10/22 10:12 BP 112/64 09/10/22 10:12 Pulse Ox 95 09/10/22 10:12 BMI result Body Mass Index 27.2 APPEARANCE: Patient in no acute distress EYES no redness, pupils equal and reactive to light, eyelids normal. . EXTREMITIES: No edema, no calf tenderness, normal peripheral pulses. SKIN: No inflammatory or neoplastic lesions. Normal color and turgor JOINT EXAM: Cervical Spine:? Full range of motion without pain; no tenderness. Thoracic Spine: No scoliosis.? No tenderness on palpation. Lumbar Spine:? Alignment normal.? Full range of motion without pain, no tenderness. Hands:? LEFT:? Slight tenderness at the 2nd MCP joint with some minimal thickening. There is some thickening and tenderness at the 2nd and 3rd PIP joints.? Otherwise no swelling, tenderness, erythema or warmth throughout the hand.? RIGHT:? Mild swelling over the 1st 3 MCP joints. There is some slight thickening at the 2nd and 3rd PIP joint, the 3rd PIP has mild tenderness.? Otherwise no other swelling, tenderness, erythema or warmth throughout the hand. Wrists:? Right: Mild discomfort with flexion or extension at 75 degrees but no tenderness or swelling. Left: Mild pain with flexion or extension at 60 degrees. Mild tenderness without swelling. Elbows: Normal pain-free range of motion without tenderness, swelling, increased warmth or erythema. Shoulders:? LEFT: Full range of motion, with slight discomfort at the extremes of normal range of motion. There is no tenderness, weakness, swelling, increased warmth or erythema. ? RIGHT: Full range of motion, slight tenderness reported with abduction above 90 degrees, she is able to complete range of motion fully despite slight pain. ? No tenderness, weakness, swelling, increased warmth or erythema. Hips:? Full range of motion without pain. Hip bursa: No tenderness. Knees:? Right: Normal pain-free range of motion without tenderness, swelling, increased warmth or erythema.? There is no effusion or crepitation. Left: Pain-free range of motion with a minimal effusion but no tenderness, redness or warmth. Ankles:? Normal pain-free range of motion without tenderness, swelling, increased warmth or erythema. Feet:? Normal pain-free range of motion without tenderness, swelling, increased warmth or erythema. ? Results Reviewed Results Reviewed: Laboratory Tests 07/14/22 07/14/22 07/25/22 14:25 14:25 10:02 WBC 10.3 Hgb 13.1 ESR 8 Creatinine 0.73 C-Reactive Protein SS-A/Ro Antibody SS-B/La Antibody 07/25/22 07/31/22 10:02 09:50 WBC Hgb ESR Creatinine C-Reactive Protein 2.31 H SS-A/Ro Antibody <1.0 NEG SS-B/La Antibody <1.0 NEG Laboratory Tests 07/31/22 07/31/22 09:50 09:50 Hep Bs Antigen Negative Hepatitis C Ab (EIA) Nonreactive TB Test (T-Spot) Com Negative [facility] [place] [facility] Care [address] [address] XRay Report Signed Patient: Bijal Mon MR#: [id number] : 1955 Acct:[id number] Age/Sex: 66 / F ADM Date: 07/14/[address]: Lorraine Small NP Ordering Physician: Lorraine Small NP Date of Service: 07/14/22 Procedure(s): XR hand LT min 3V Accession Number(s): [id number] cc: Lorraine Small NP~ EXAMINATION: XR HAND BILATERAL CLINICAL INFORMATION: Pain. COMPARISON: None. TECHNIQUE: 3 views of each hand. FINDINGS: RIGHT HAND: There is mild reduction in the PIP and DIP joint spaces with no visible fracture, dislocation or subluxation. The MCP and intercarpal joint spaces are maintained normal. No acute fracture, dislocation or subluxation seen. LEFT HAND: There is loss of PIP and DIP joint spaces without bony erosive changes or periarticular spurring. No visible acute fracture, dislocation or subluxation seen. The soft tissues are normal. XR/XR hand LT min 3V IMPRESSION: Degenerative arthritic changes PIP and DIP joints. No visible acute fracture, dislocation or subluxation seen. Dictated By: Scott Nicole MD Signed By: <Electronically signed by Scott Nicole MD? Assessment & Plan Assessment & Plan (1) Osteoporosis: Code(s): M81.0 - Age-related osteoporosis without current pathological fracture (2) Long-term use of immunosuppressant medication: Code(s): Z79.60 - tank terminal gauger (current) use of unspecified immunomodulators and immunosuppressants (3) Seronegative rheumatoid arthritis: Code(s): M06.00 - Rheumatoid arthritis without rheumatoid factor, unspecified site Plan At this point she is reasonably comfortable but still is on prednisone after 4 years. I think at this point it is reasonable to, given the small joint synovitis I see, to label her illness as seronegative rheumatoid arthritis. She has not been able to taper off the prednisone so we need to figure out a DMARD strategy. We reviewed potential benefits and side effects of methotrexate. I had given her some written information on that drug before. We will start with 15 mg weekly and folic acid 1 mg daily. Lab work is scheduled for about 6 weeks which will be before her next visit. She plans to be away for from late September to late October so we will get lab done before she leaves. Orders: Orders Erythrocyte Sedimentation Rate Today M06.00 - Rheumatoid arthritis without rheumatoid factor, unspecified site C Reactive Protein Today M06.00 - Rheumatoid arthritis without rheumatoid factor, unspecified site Alanine Aminotransferase Today M06.00 - Rheumatoid arthritis without rheumatoid factor, unspecified site, Z79.899 - Other snf (current) drug therapy Aspartate Amino Transferase Today M06.00 - Rheumatoid arthritis without rheumatoid factor, unspecified site, Z79.899 - Other terminal superintendent (current) drug therapy Complete Blood Count Auto Diff Today M06.00 - Rheumatoid arthritis without rheumatoid factor, unspecified site, Z79.899 - Other snf (current) drug therapy Creatinine Today M06.00 - Rheumatoid arthritis without rheumatoid factor, unspecified site, Z79.899 - Other snf (current) drug therapy Medications: New prednisone 5 mg PO DAILY 90 tabs 1RF M06.00 - Rheumatoid arthritis without rheumatoid factor, unspecified site methotrexate sodium 15 mg (6 x 2.5 mg) PO QWEEK 48 tabs 1RF M06.00 - Rheumatoid arthritis without rheumatoid factor, unspecified site folic acid 1 mg PO DAILY 90 tabs 1RF M06.00 - Rheumatoid arthritis without rheumatoid factor, unspecified site Coding Level of Care Code Est Pt Level 3 (77958) Diagnoses Osteoporosis M81.0 Long-term use of immunosuppressant medication Z79.60 Seronegative rheumatoid arthritis M06.00
[2022-09-10 10:12] VITALS: BP 112/64; PULSE 77; TEMP 36.6; O2SAT 95; BMI 27.2
== END 2022-09-10 11:08 | disposition home or self-care (01) ==
LOC: HO.RHE 10:06
PROVIDERS: PCP Internal Medicine; Visit Provider Internal Medicine Rheumatology
DX: M81.0 Age-related osteoporosis without current pathological fracture (principal); Z79.60 Long term (current) use of unspecified immunomodulators and immunosuppressants; M06.00 Rheumatoid arthritis without rheumatoid factor, unspecified site
CPT/HCPCS: 99213

== ENCOUNTER → 2022-09-10 10:06 | Outpatient (BNVA) | payer MEDICARE, SELFPAY | PROVIDERS: PCP Internal Medicine; Visit Provider Internal Medicine Rheumatology | DX: M81.0 Age-related osteoporosis without current pathological fracture (principal); M06.00 Rheumatoid arthritis without rheumatoid factor, unspecified site; Z79.60 Long term (current) use of unspecified immunomodulators and immunosuppressants | CPT/HCPCS: 99212 ==

== ENCOUNTER 2022-10-20 09:43 | Outpatient (REF) | payer MEDICARE, SELFPAY ==
[2022-10-20 11:27] LABS: MANUAL DIFF FLAG NO
[2022-10-20 12:02] LABS: Basophils Percent Auto 0.3 % (0-2); Eosinophils Absolute Auto 0.1 X10*3/uL (0.0-0.4); Eosinophils Percent Auto 0.5 % (0-4); Hematocrit 39.9 % (37.0-47.0); Hemoglobin 13.4 g/dl (12.0-16.0); Imm Gran Abs Auto 0.06 X10*3/uL (0.00-0.03); Imm Gran Pct Auto 0.5 % (0.0-0.4); Lymphocytes Absolute Auto 1.3 X10*3/uL (1.2-4.9); Lymphocytes Percent Auto 11.6 % (20-40); Mean Corpuscular HGB Conc 33.6 g/dl (31.0-35.0); Mean Corpuscular Hemoglobin 32.9 pg (27.0-33.0); Mean Platelet Volume 12.9 fL (9.4-12.3); Monocytes Absolute Auto 0.6 X10*3/uL (0.1-1.2); Monocytes Percent Auto 5.4 % (2-11); Neutrophils Absolute Auto 9.3 x10*3/uL (2.0-8.3); Neutrophils Percent Auto 81.7 % (45-73); Platelet Count 133 X10*3/uL (160-400); Red Blood Count 4.07 X10*6/uL (4.20-5.50); White Blood Count 11.3 X10*3/uL (4.8-10.8)
[2022-10-20 12:25] LABS: Alanine Aminotransferase 25 U/L (0-31); Aspartate Amino Transferase 18 U/L (5-31); C Reactive Protein 0.79 mg/dL (< or = 0.50); Estimated Glomerular Filt Rate > 60
[2022-10-20 13:40] LABS: Erythrocyte Sedimentation Rate 7 MM/HR (0-20)
== END 2022-10-20 09:44 | disposition home or self-care (01) ==
LOC: HO.HMGCLDS 09:43
PROVIDERS: PCP Internal Medicine; Visit Provider Internal Medicine Rheumatology
DX: M06.00 Rheumatoid arthritis without rheumatoid factor, unspecified site (principal); Z79.899 Other long term (current) drug therapy
CPT/HCPCS: 36415; 82565; 84450; 84460; 85025; 85652; 86140

== ENCOUNTER 2022-10-23 09:12 | Outpatient (AMB) | payer MEDICARE, SELFPAY ==
--- NOTE | 2022-10-23 09:16 | A.OFFVIS_ITS ---
Intake Vital Signs 10/23/22 09:17 Height 5 ft 3 in Weight 158 lb 15.253 oz BMI 28.2 BP 120/76 Blood Pressure Location Lt brachial Position Sitting Pulse 75 Pulse Source Pulse Oximeter Temp 97 F Temp Source Skin Pulse Oximetry (%) 98 Oxygen Delivery Method Room Air Intake Visit Reasons: PMR Intake Note: Here for PMR follow up and refill request. Traveling to [place] end of this month until Nov 29. Attorney Lawyer Required: No Accompanied by: Self / Same As Patient Allergies nicotine [NICOTINE] Allergy (Intermediate, Verified 10/23/22 09:22) NICOTINE PATCH-BLISTERS, skin irritation/blisters, skin irritation/blisters amoxicillin [From AUGMENTIN] Adverse Reaction (Intermediate, Verified 10/23/22 09:22) VOMITING/DIARRHEA Latex Allergy (Mild, Uncoded 10/23/22 09:22) Rash Statins Support Adverse Reaction (Intermediate, Uncoded 10/23/22 09:22) muscle cramps HPI HPI Comments History of Present Illness Details The patient returns for evaluation of her seronegative rheumatoid arthritis. We started her on methotrexate about 2 months ago. She seems to be tolerating it without much problem. She has noted some improvement in her hip pain with still some discomfort in her shoulders. She remains at 5 mg daily prednisone. There has been no headache, jaw claudication, nausea, shortness of breath or skin rash. [facility] Medical History (Updated 10/23/22 @ 19:58 by Darryn Mota MD) Dyslipidemia Essential hypertension Goiter Hyperparathyroidism Impaired fasting glucose Osteopenia of femoral neck Osteoporosis Polymyalgia rheumatica Primary hyperparathyroidism Vitamin D deficiency Surgical History History of colonoscopy History of removal of cyst Family History (Updated 10/23/22 @ 09:18 by BABATUNDE Reis) Father HTN (hypertension) High cholesterol Dementia Mother Pneumonia Maternal Grandfather Unknown family medical history Maternal Grandmother Pneumonia Paternal Grandfather Unknown family medical history Paternal Grandmother Unknown family medical history Social History Household Members: None Housing: House Are you a primary career education teacher to a significant other at home: No Do you presently have visiting nurse or other home services: No Alcohol intake: current Alcohol intake frequency: a few times a month Alcohol type: wine Patient Tobacco Use Status: Former Tobacco user e-Cigarette/Vaping Use: Never Used service: No Current occupational status: retired Cognitive needs: No Hearing needs: No Vision needs: No Review of Systems Const Details: Negative for appetite change, weight change, fever, chills, malaise and fatigue Eyes Details: Negative for vision change, dry eyes,headaches and dizziness ENT Details: Negative for hearing change, tinnitus, oral ulcer, nose bleeds and oral dryness. Card Details: Negative chest pain, edema and syncope Resp Details: Negative for SOB, cough and wheezing GI Details: Negative indigestion/heartburn, nausea, abdominal pain, bowel changes, diarrhea, constipation and bloody stool. Edgar/Lymph Details: Negative for excessive bruising or bleeding. Physical Exam Vital Signs: Last Vital Signs Temp 97 F 10/23/22 09:17 Pulse 75 10/23/22 09:17 BP 120/76 10/23/22 09:17 Pulse Ox 98 10/23/22 09:17 Oxygen Delivery Method Room Air 10/23/22 09:17 BMI result Body Mass Index 28.2 APPEARANCE: Patient in no acute distress EYES no redness, pupils equal and reactive to light, eyelids normal EXTREMITIES: No edema, no calf tenderness, normal peripheral pulses. JOINT EXAM: Cervical Spine:? Full range of motion without pain; no tenderness. Thoracic Spine: No scoliosis.? No tenderness on palpation. Lumbar Spine:? Alignment normal.? Full range of motion without pain, no tenderness. Hands:? LEFT:? No MCP swelling or tenderness.? There is some thickening and tenderness at the 2nd and 3rd PIP joints.? Otherwise no swelling, tenderness, erythema or warmth throughout the hand.? RIGHT:? No MCP swelling or tenderness.? There is some slight thickening at the 2nd and 3rd PIP joint, the 3rd PIP has mild tenderness.? Otherwise no other swelling, tenderness, erythema or warmth throughout the hand. Wrists:? Right:? Mild discomfort with flexion or extension at 75 degrees but no tenderness or swelling.? Left:? No pain with flexion or extension at 75 degrees.? Mild tenderness without swelling.? Elbows: Normal pain-free range of motion without tenderness, swelling, increased warmth or erythema. Shoulders:? LEFT: Full range of motion, with slight discomfort at the extremes of normal range of motion.? There is no tenderness, weakness, swelling, increased warmth or erythema. ? RIGHT: Full range of motion, slight tenderness reported with abduction above 90 degrees, she is able to complete range of motion fully despite slight pain. ? No tenderness, weakness, swelling, increased warmth or erythema. Hips:? Full range of motion without pain. Hip bursa: No tenderness. Knees:? Right:? Normal pain-free range of motion without tenderness, swelling, increased warmth or erythema.? There is no effusion or crepitation.? Left:? Pain-free range of motion with a minimal effusion but no tenderness, redness or warmth. Ankles:? Normal pain-free range of motion without tenderness, swelling, increased warmth or erythema. Feet:? Normal pain-free range of motion without tenderness, swelling, increased warmth or erythema. ? ? Results Reviewed Results Reviewed: Laboratory Tests 10/20/22 10/20/22 10/20/22 09:55 09:55 09:55 WBC 11.3 H Hgb 13.4 ESR 7 Creatinine 0.74 AST 18 ALT 25 C-Reactive Protein 0.79 H Assessment & Plan Assessment & Plan (1) Long-term use of immunosuppressant medication: Code(s): Z79.60 - care home (current) use of unspecified immunomodulators and immunosuppressants (2) Seronegative rheumatoid arthritis: Code(s): M06.00 - Rheumatoid arthritis without rheumatoid factor, unspecified site Plan Rheumatoid arthritis with some improvement with the methotrexate now after 2 months. There could be further improvement as the medication takes effect. We will see if we can drop her prednisone to 4 mg daily. The lab work looks good so she will stay with the current dose of methotrexate. Her bone density done at [facility] earlier in the month looks stable. There still is osteopenia but there is little change. She does have follow-up planned in Endocrinology about the osteopenia. Follow-up in 2 months in rheumatology is recommended. Orders: Orders Erythrocyte Sedimentation Rate Today M06.00 - Rheumatoid arthritis without rheumatoid factor, unspecified site Aspartate Amino Transferase Today M06.00 - Rheumatoid arthritis without rheumatoid factor, unspecified site, Z79.899 - Other superintendent marine oil terminal (current) drug therapy C Reactive Protein Today M06.00 - Rheumatoid arthritis without rheumatoid factor, unspecified site Complete Blood Count Auto Diff Today M06.00 - Rheumatoid arthritis without rheumatoid factor, unspecified site, Z79.899 - Other superintendent marine oil terminal (current) drug therapy Alanine Aminotransferase Today M06.00 - Rheumatoid arthritis without rheumatoid factor, unspecified site, Z79.899 - Other superintendent marine oil terminal (current) drug therapy Creatinine Today M06.00 - Rheumatoid arthritis without rheumatoid factor, unspecified site, Z79.899 - Other care home (current) drug therapy Medications: New prednisone 4 mg (4 x 1 mg) PO DAILY 120 tabs 3RF M06.00 - Rheumatoid arthritis without rheumatoid factor, unspecified site Refilled methotrexate sodium 15 mg (6 x 2.5 mg) PO QWEEK 48 tabs 1RF M06.00 - Rheumatoid arthritis without rheumatoid factor, unspecified site Coding Level of Care Code Est Pt Level 3 (35150) Diagnoses Long-term use of immunosuppressant medication Z79.60 Seronegative rheumatoid arthritis M06.00
[2022-10-23 09:17] VITALS: BP 120/76; PULSE 75; TEMP 36.1; O2SAT 98; BMI 28.2
== END 2022-10-23 09:48 | disposition home or self-care (01) ==
PROVIDERS: PCP Internal Medicine; Visit Provider Internal Medicine Rheumatology
DX: Z79.60 Long term (current) use of unspecified immunomodulators and immunosuppressants (principal); M06.00 Rheumatoid arthritis without rheumatoid factor, unspecified site
CPT/HCPCS: 99213

== ENCOUNTER → 2022-10-23 09:12 | Outpatient (BNVA) | payer MEDICARE, SELFPAY | PROVIDERS: PCP Internal Medicine; Visit Provider Internal Medicine Rheumatology | DX: M06.00 Rheumatoid arthritis without rheumatoid factor, unspecified site (principal); Z79.60 Long term (current) use of unspecified immunomodulators and immunosuppressants | CPT/HCPCS: 99212 ==

== ENCOUNTER 2022-12-08 09:19 | Outpatient (REF) | payer MEDICARE, SELFPAY ==
[2022-12-08 12:02] LABS: Alanine Aminotransferase 28 U/L (0-31); Albumin Level 4.2 g/dL (3.5-5.0); Alkaline Phosphatase 67 U/L (39-117); Anion Gap 14 (12-20); Aspartate Amino Transferase 20 U/L (5-31); Bilirubin Total 0.3 mg/dL (0.0-1.0); Blood Urea Nitrogen 11 mg/dL (9-16); Calcium 10.8 mg/dL (8.4-10.2); Carbon Dioxide 21 mmol/L (22-29); Chloride 109 mmol/L (96-108); Estimated Glomerular Filt Rate > 60; Glucose Random 112 mg/dL (60-115); Phosphorus 2.7 mg/dL (2.7-4.5); Sodium 140 mmol/L (135-145); Total Protein 6.7 g/dL (6.5-8.0); Vitamin D 25-OH Total 30.2 ng/mL (>30)
[2022-12-12 07:49] LABS: N-Telopeptide 25 (see note); NTXCreaRU 77 mg/dL (20-275)
== END 2022-12-08 09:20 | disposition home or self-care (01) ==
LOC: HO.HMGCLDS 09:19
PROVIDERS: Absent Provider Internal Medicine; PCP Internal Medicine; Visit Provider Internal Medicine Rheumatology
DX: E55.9 Vitamin D deficiency, unspecified (principal); E04.9 Nontoxic goiter, unspecified; M81.0 Age-related osteoporosis without current pathological fracture; M06.00 Rheumatoid arthritis without rheumatoid factor, unspecified site; Z79.899 Other long term (current) drug therapy
CPT/HCPCS: 36415; 80053; 82306; 82523; 83970; 84100; 84439; 84443; 85025; 85652; 86140

== ENCOUNTER 2022-12-11 11:22 | Outpatient (AMB) | payer MEDICARE, SELFPAY ==
--- NOTE | 2022-12-11 11:25 | MHC.OFFVIS ---
Intake Vital Signs 12/11/22 11:26 Height 5 ft 3 in Weight 167 lb 1.766 oz BMI 29.6 BP 124/80 Blood Pressure Location Rt brachial Position Sitting Pulse 85 Pulse Source Pulse Oximeter Temp 97.7 F Temp Source Skin Pulse Oximetry (%) 95 Oxygen Delivery Method Room Air Intake Visit Reasons: UCTD Intake Note: Patient presents today to follow up on UCTD. Commercial Print Salesman Required: No Accompanied by: Self / Same As Patient Allergies nicotine [NICOTINE] Allergy (Intermediate, Verified 12/11/22 11:) NICOTINE PATCH-BLISTERS, skin irritation/blisters, skin irritation/blisters amoxicillin [From AUGMENTIN] Adverse Reaction (Intermediate, Verified 12/11/22 11:) VOMITING/DIARRHEA Latex Allergy (Mild, Uncoded 12/11/22:) Rash Statins Support Adverse Reaction (Intermediate, Uncoded 12/11/22:) muscle cramps HPI HPI Comments History of Present Illness Details The patient reports improvement in her symptoms over the past month or so. She was able to travel to [place] and hike up the hills. She has been on methotrexate now since July. She is on methotrexate dose of 15 mg weekly and the prednisone dose is down to 4 mg daily. She wonders if the prednisone can be further decreased. She does not notice any side effects with the current treatment other than she did gain some weight on vacation. [facility] Medical History (Updated 10/23/22 @ 19:58 by Darryn Mota MD) Impaired fasting glucose Goiter Dyslipidemia Hyperparathyroidism Vitamin D deficiency Osteoporosis Primary hyperparathyroidism Osteopenia of femoral neck Essential hypertension Polymyalgia rheumatica Surgical History History of removal of cyst History of colonoscopy Family History Father HTN (hypertension) High cholesterol Dementia Mother Pneumonia Maternal Grandfather Unknown family medical history Maternal Grandmother Pneumonia Paternal Grandfather Unknown family medical history Paternal Grandmother Unknown family medical history Social History Household Members: None Housing: House Are you a primary lawn care worker to a significant other at home: No Do you presently have visiting nurse or other home services: No Alcohol intake: current Alcohol intake frequency: a few times a month Alcohol type: wine Patient Tobacco Use Status: Former Tobacco user e-Cigarette/Vaping Use: Never Used service: No Current occupational status: retired Cognitive needs: No Hearing needs: No Vision needs: No Review of Systems Const Details: Some weight gain. Negative for appetite change, fever, chills, malaise and fatigue ENT Details: Negative for hearing change, tinnitus, oral ulcer, nose bleeds and oral dryness. Card Details: Negative chest pain, edema and syncope Resp Details: Negative for SOB, cough and wheezing GI Details: Negative indigestion/heartburn, nausea, abdominal pain, bowel changes, diarrhea, constipation and bloody stool. Endo Details: Negative for polyuria and polydypsia Edgar/Lymph Details: Negative for excessive bruising or bleeding. Physical Exam Vital Signs: Last Vital Signs Temp 97.7 F 12/11/22 11:26 Pulse 85 12/11/22 11:26 BP 124/80 12/11/22 11:26 Pulse Ox 95 12/11/22 11:26 Oxygen Delivery Method Room Air 12/11/22 11:26 BMI result Body Mass Index 29.6 APPEARANCE: Patient in no acute distress EYES no redness, pupils equal and reactive to light, eyelids normal EXTREMITIES: No edema, no calf tenderness, normal peripheral pulses. SKIN: No inflammatory or neoplastic lesions. Normal color and turgor JOINT EXAM: Cervical Spine:? Full range of motion without pain; no tenderness. Thoracic Spine: No scoliosis.? No tenderness on palpation. Lumbar Spine:? Alignment normal.? Full range of motion without pain, no tenderness. Hands:? LEFT:? No MCP swelling or tenderness.? There is some thickening and tenderness at the 2nd and 3rd PIP joints.? Otherwise no swelling, tenderness, erythema or warmth throughout the hand.? RIGHT:? No MCP swelling or tenderness.? There is some slight thickening at the 2nd and 3rd PIP joint, the 3rd PIP has mild tenderness.? Otherwise no other swelling, tenderness, erythema or warmth throughout the hand. Wrists:? Right:? no discomfort with flexion or extension at 75 degrees andut no tenderness or swelling.? Left:? No pain with flexion or extension at 75 degrees.? Mild tenderness without swelling.? Elbows: Normal pain-free range of motion without tenderness, swelling, increased warmth or erythema. Shoulders:? LEFT: Full range of motion, with slight discomfort at the extremes of normal range of motion.? There is no tenderness, weakness, swelling, increased warmth or erythema. ? RIGHT: Full range of motion, slight tenderness reported with abduction above 90 degrees, she is able to complete range of motion fully despite slight pain. ? No tenderness, weakness, swelling, increased warmth or erythema. Hips:? Full range of motion without pain. Hip bursa: No tenderness. Knees:? Right:? Normal pain-free range of motion without tenderness, swelling, increased warmth or erythema.? There is no effusion or crepitation.? Left:? Pain-free range of motion with a minimal effusion but no tenderness, redness or warmth. Ankles:? Normal pain-free range of motion without tenderness, swelling, increased warmth or erythema. Feet:? Normal pain-free range of motion without tenderness, swelling, increased warmth or erythema. ? Tender points: No tenderness to digital palpation at the occiput, trapezius, second rib, lateral epicondyle, knees, greater trochanter and gluteal area bilaterally. ? Results Reviewed Results Reviewed: Laboratory Tests 12/08/22 09:28 WBC 8.0 Hgb 13.2 ESR 12 Creatinine 0.73 AST 20 ALT 28 C-Reactive Protein 0.50 Assessment & Plan Assessment & Plan (1) Long-term use of immunosuppressant medication: Code(s): Z79.60 - shelter (current) use of unspecified immunomodulators and immunosuppressants (2) Seronegative rheumatoid arthritis: Code(s): M06.00 - Rheumatoid arthritis without rheumatoid factor, unspecified site Plan There seems to be good control of synovitis with current treatment. Lab work looks good so we will continue the methotrexate as above. We will cut the prednisone down to 3 mg daily and then every month try to drop by another 1 mg. We will check her back in 2 months with lab work before that visit. She will call us if there is any flare of symptoms with the taper prednisone. Orders: Orders Erythrocyte Sedimentation Rate Today M06.00 - Rheumatoid arthritis without rheumatoid factor, unspecified site Complete Blood Count Auto Diff Today M06.00 - Rheumatoid arthritis without rheumatoid factor, unspecified site, Z79.899 - Other shelter (current) drug therapy C Reactive Protein Today M06.00 - Rheumatoid arthritis without rheumatoid factor, unspecified site Alanine Aminotransferase Today M06.00 - Rheumatoid arthritis without rheumatoid factor, unspecified site, Z79.899 - Other shelter (current) drug therapy Aspartate Amino Transferase Today M06.00 - Rheumatoid arthritis without rheumatoid factor, unspecified site, Z79.899 - Other assistant terminal manager (current) drug therapy Creatinine Today M06.00 - Rheumatoid arthritis without rheumatoid factor, unspecified site, Z79.899 - Other assistant terminal manager (current) drug therapy Medications: Discontinued prednisone Discontinued Reason: Doctor's Order 5 mg PO DAILY 90 tabs 1RF M06.00 - Rheumatoid arthritis without rheumatoid factor, unspecified site Coding Level of Care Code Est Pt Level 3 (91211) Diagnoses Long-term use of immunosuppressant medication Z79.60 Seronegative rheumatoid arthritis M06.00
[2022-12-11 11:26] VITALS: BP 124/80; PULSE 85; TEMP 36.5; O2SAT 95; BMI 29.6
== END 2022-12-11 12:02 | disposition home or self-care (01) ==
PROVIDERS: PCP Internal Medicine; Visit Provider Internal Medicine Rheumatology
DX: Z79.60 Long term (current) use of unspecified immunomodulators and immunosuppressants (principal); M06.00 Rheumatoid arthritis without rheumatoid factor, unspecified site
CPT/HCPCS: 99213

== ENCOUNTER → 2022-12-11 11:22 | Outpatient (BNVA) | payer MEDICARE, SELFPAY | PROVIDERS: PCP Internal Medicine; Visit Provider Internal Medicine Rheumatology | DX: M06.00 Rheumatoid arthritis without rheumatoid factor, unspecified site (principal); Z79.60 Long term (current) use of unspecified immunomodulators and immunosuppressants | CPT/HCPCS: 99212 ==

== ENCOUNTER 2023-02-05 09:50 | Outpatient (REF) | payer MEDICARE, SELFPAY ==
[2023-02-05 13:21] LABS: MANUAL DIFF FLAG NO
[2023-02-05 13:30] LABS: Basophils Percent Auto 0.5 % (0-2); Eosinophils Absolute Auto 0.1 X10*3/uL (0.0-0.4); Eosinophils Percent Auto 1.1 % (0-4); Hemoglobin 13.6 g/dl (12.0-16.0); Imm Gran Abs Auto 0.03 X10*3/uL (0.00-0.03); Imm Gran Pct Auto 0.4 % (0.0-0.4); Lymphocytes Absolute Auto 1.5 X10*3/uL (1.2-4.9); Lymphocytes Percent Auto 19.4 % (20-40); Mean Corpuscular HGB Conc 33.2 g/dl (31.0-35.0); Mean Corpuscular Hemoglobin 32.9 pg (27.0-33.0); Mean Corpuscular Volume 99.3 fL (80.0-98.0); Mean Platelet Volume 12.1 fL (9.4-12.3); Monocytes Absolute Auto 0.6 X10*3/uL (0.1-1.2); Monocytes Percent Auto 7.4 % (2-11); Neutrophils Absolute Auto 5.4 x10*3/uL (2.0-8.3); Neutrophils Percent Auto 71.2 % (45-73); Platelet Count 135 X10*3/uL (160-400); Red Blood Count 4.13 X10*6/uL (4.20-5.50); Red Cell Distribution Width 14.6 % (11.0-16.0); White Blood Count 7.5 X10*3/uL (4.8-10.8)
[2023-02-05 13:46] LABS: Alanine Aminotransferase 35 U/L (0-31); Albumin Level 4.2 g/dL (3.5-5.0); Aspartate Amino Transferase 21 U/L (5-31); C Reactive Protein 0.42 mg/dL (< or = 0.50); Estimated Glomerular Filt Rate > 60
[2023-02-05 14:03] LABS: Vitamin D 25-OH Total 38.7 ng/mL (>30)
[2023-02-05 14:20] LABS: Erythrocyte Sedimentation Rate 6 MM/HR (0-20)
[2023-02-09 16:38] LABS: N-Telopeptide 30 (see note); NTXCreaRU 111 mg/dL (20-275)
== END 2023-02-05 09:51 | disposition home or self-care (01) ==
LOC: HO.HMGCLDS 09:50
PROVIDERS: Internal Medicine Rheumatology; PCP Internal Medicine; Visit Provider Internal Medicine Endocrinology, Diabetes & Metabolism
DX: E21.3 Hyperparathyroidism, unspecified (principal); M06.00 Rheumatoid arthritis without rheumatoid factor, unspecified site; Z79.899 Other long term (current) drug therapy
CPT/HCPCS: 36415; 82040; 82306; 82523; 82565; 84450; 84460; 85025; 85652; 86140

== ENCOUNTER 2023-02-09 10:51 | Outpatient (AMB) | payer MEDICARE, SELFPAY ==
[2023-02-09 11:14] VITALS: BP 124/66; PULSE 77; O2SAT 98; BMI 31.6
--- NOTE | 2023-02-09 11:14 | A.OFFPC_ITS ---
Vital Signs 02/09/23 11:14 Height 5 ft 3 in Weight 178 lb 6 oz BMI 31.6 BP 124/66 Blood Pressure Location Rt brachial Position Sitting Pulse 77 Pulse Source Pulse Oximeter Pulse Oximetry (%) 98 Oxygen Delivery Method Room Air Intake Visit Reasons: Annual Physical Intake Note: Pt is here for her Annual PE Allergies nicotine [NICOTINE] Allergy (Intermediate, Verified 03/29/23 18:47) NICOTINE PATCH-BLISTERS, skin irritation/blisters, skin irritation/blisters amoxicillin [From AUGMENTIN] Adverse Reaction (Intermediate, Verified 03/29/23 18:47) VOMITING/DIARRHEA Latex Allergy (Mild, Uncoded 03/29/23 18:47) Rash Statins Support Adverse Reaction (Intermediate, Uncoded 03/29/23 18:47) muscle cramps Medication List - Last Reconciled 02/09/23 by Norma Pratt MD amlodipine 5 mg PO DAILY cholecalciferol (vitamin D3) 25 mcg PO DAILY famotidine 40 mg PO DAILY folic acid 1 mg PO DAILY methotrexate sodium 15 mg (6 x 2.5 mg) PO QWEEK prednisone 4 mg (4 x 1 mg) PO DAILY zoledronic nryr-ngkwqqkm-fpwxy 5 mg/100 mL (Reclast) 5 ea IV .once a year Tobacco use date assessed: 02/09/23 Fall risk assessment: No Falls in past year Last assessed Fall Risk: 02/09/23 Dental Screening Dental Screen Date: 02/09/23 Did you have a dental visit in the last 12 months?: Yes Did you have a dental problem in the last 6 months where you did not have access to dental care?: No Was dental information given to patient?: Patient has dentist HPI Annual Physical HPI Details 67-year-old lady here today for her phys ical exam .She has hypertension, currently stable on amlodipine. She has osteoporosis previously on Prolia but had a flare up of her PMR and was given a dose of Reclast. Last bone density scan done showed normal bone density in AP spine and hip, osteopenia in right femoral neck and left forearm. She has osteoarthritis, and seronegative rheumatoid arthritis currently on methotrexate and prednisone , followed by Rheumatology . She goes for her screening mammogram at [facility], patient states that she had 1 this year, will get copy of results. She is also up-to-date with her screening colonoscopy done in 2018, with normal findings, to be repeated again in 2027. [facility] Medical History (Updated 03/29/23 @ 18:56 by Norma Pratt MD) Impaired fasting glucose Goiter Dyslipidemia Hyperparathyroidism Vitamin D deficiency Primary hyperparathyroidism Osteopenia of femoral neck Essential hypertension Polymyalgia rheumatica Surgical History History of removal of cyst History of colonoscopy Family History Father HTN (hypertension) High cholesterol Dementia Mother Pneumonia Maternal Grandfather Unknown family medical history Maternal Grandmother Pneumonia Paternal Grandfather Unknown family medical history Paternal Grandmother Unknown family medical history Social History Household Members: None Housing: House Are you a primary director of critical care to a significant other at home: No Do you presently have visiting nurse or other home services: No Alcohol intake: current Alcohol intake frequency: a few times a month Alcohol type: wine Patient Tobacco Use Status: Former Tobacco user e-Cigarette/Vaping Use: Never Used service: No Current occupational status: retired Cognitive needs: No Hearing needs: No Vision needs: No Questionnaire PHQ-9 Over the last 2 weeks, how often have you been bothered by any of the following problems? 1. Little interest or pleasure in doing things: not at all 2. Feeling down, depressed, or hopeless: not at all 3. Trouble falling or staying asleep, or sleeping too much: not at all 4. Feeling tired or having little energy: not at all 5. Poor appetite or overeating: not at all 6. Feeling bad about yourself - or that you are a failure or have let yourself or your family down: not at all 7. Trouble concentrating on things, such as reading the newspaper or watching television: not at all 8. Moving or speaking so slowly that other people could have noticed. Or the opposite - being so fidgety or restless that you have been moving around a lot more than usual: not at all 9. Thoughts that you would be better off or of hurting yourself in some way: not at all Total score: 0 Depression Screening Interpretation: Negative Depression Screening Done: Yes 62699 - PHQ-9 Billing: Yes Source: Developed by Drs. Dwayne Jones, Ly Dale, Rayo Joseph and colleagues, with an educational salvatore from [employer]. Thrive Questionnaire Date Thrive assessed: 02/09/23 I am a: Patient What is your living situation today?: I have a steady place to live Within the past 12 months, did the food you bought not last and you didn't have the money to get more?: Sometimes True Within the past 12 months, did you worry whether your food would run out before you got money to buy more?: Sometimes True Do you have trouble paying for medicines?: No Do you have trouble getting transportation to medical appointments?: No Do you have trouble paying your heating and electricity bill?: No Do you have trouble taking care of your child, family member or friend?: No Do you have trouble with day-to-day activities such as bathing, preparing meals, shopping, managing finances, etc.?: No Are you currently unemployed and looking for a job?: No Are you interested in more education?: No AUDIT C Alcohol Use Questionnaire (AUDIT-C) 1. How often do you have a drink containing alcohol?: Monthly or less 2. How many drinks containing alcohol do you have on a typical day when you are drinking?: 1 or 2 3. How often do you have six or more drinks on one occasion?: Never Total Score: 1 HARRY-7 AMB Questionnaire HARRY-7 Date HARRY - 7 assessed: 02/09/23 Feeling nervous, anxious, or on edge: 0 = Not at all Not being able to stop or control worryin = Not at all Worrying too much about different things: 0 = Not at all Trouble relaxin = Not at all Being so restless that it is hard to sit still: 0 = Not at all Becoming easily annoyed or irritable: 0 = Not at all Feeling afraid as if something awful might happen: 0 = Not at all Total HARRY-7 score (0-4 normal; 5-9 mild; 10-14 moderate; 15-21 severe): 0 Source: Developed by Ly Eid Kurt Kroenke and colleagues, with an educational salvatore from [employer]. HARRY-7 Assessment Billing HARRY-7 Assessment Tool: HARRY-7 Assessment 82957 Review of Systems Const Denies fatigue, Denies fever(s), Denies headache(s), Denies poor appetite, Denies weakness and Reports weight gain Eyes Denies change in vision ENT Denies dizziness, Denies headache(s), Denies nasal congestion, Denies nasal discharge and Denies sore throat Card Denies chest pain, Denies lightheadedness, Denies palpitations and Denies dyspnea Resp Denies chest congestion, Denies cough, Denies dyspnea and Denies wheezing GI Denies abdominal pain, Denies change in bowel habits and Denies heartburn Denies hematuria, Denies urinary frequency, Denies dysuria and Denies urinary urgency Musc Reports stiffness Skin/Breast Denies lesions and Denies rash Neuro Denies dizziness, Denies headache(s) and Denies weakness Psych Reports no additional complaints Endo Denies fatigue, Denies polydipsia, Denies polyuria and Denies palpitations Edgar/Lymph Reports easy bruising Aller/Immun Denies seasonal rhinorrhea and Denies wheezing Physical exam (Primary Care) Vital Signs: Last Vital Signs Pulse 77 02/09/23 11:14 BP 124/66 02/09/23 11:14 Pulse Ox 98 02/09/23 11:14 Oxygen Delivery Method Room Air 02/09/23 11:14 BMI result Body Mass Index 31.6 Tobacco/Smoking Status: Tobacco use Status Tobacco use date assessed 02/09/23 02/09/23 11:23 Patient Tobacco Use Status Former Tobacco user 02/09/23 11:17 e-Cigarette/Vaping Use Never Used 02/09/23 11:17 PHQ-9: PHQ-9 Score PHQ-9: Total score 0 02/09/23 12:11 Depression Screening Interpretation: Negative Thrive Assessment: Date of Thrive Assessment Date Thrive assessed 02/09/23 02/09/23 11:43 Const General: comfortable, no acute distress and alert Orientation/consciousness: patient oriented x3 HENMT Ears: external ears normal, TM's normal bilaterally and EAC's normal General nose exam: Normal external nose present Mouth: Normal oral and palatal mucosa present, oropharynx normal and moist mucous membranes Eyes General: appearance normal, both eyes and all related structures Conjunctivae: conjunctivae normal Sclerae: sclerae normal Pupils: Equal, round and reactive pupils present EOM: EOMs intact bilaterally Neck Neck: Yes full ROM, Yes no lymphadenopathy and Yes supple Chest Breast/axilla palpation: normal palpation of the breasts Resp Effort & Inspection: normal respiratory effort and able to speak in complete sentences Auscultation: clear to auscultation bilaterally Cardio Rate: regular rate Rhythm: regular rhythm Heart sounds: S1 normal heart sound present and S2 normal heart sound present GI Palpation (GI): Soft to palpation, nontender and no masses Auscultation: normal bowel sounds Back/Spine/Pelvis Back: No back tenderness Skin General skin exam: no rashes or lesions noted Neuro General: patient oriented x3, gait normal, tone normal, moves all extremities, Normal light touch and pain sensation and no focal motor deficits Cranial nerves: Yes CN's II-XII intact bilaterally and Yes Equal, round and reactive pupils present Cognition (Neuro): normal cognition Extrem General: Yes full ROM, Yes no joint enlargement, Yes no clubbing, cyanosis or edema and Yes no calf tenderness Psych Appearance: grossly normal and well kempt Mental Status: mental status grossly normal Speech and movement: Normal speech and movement present Affect: normal affect Attitude: cooperative Thought process: Normal thought process present Thought content: Normal thought content present Results Reviewed Results Reviewed: PEC : [id number] KALLIE: 12/08/22 STATUS: COMP REQ : [id number] RECD: 12/08/[address]: Oksana Zayas DO COMP: 12/08/22 ENTERED: 12/08/[address]: Norma Pratt MD, James MD ORDERED: CMP, Phos, C Reactive Prot, Vitamin D 25-OH, Free T4, TSH Test Result Flag Reference Sodium 140 135-145 mmol/L Potassium 4.0 3.3-5.1 mmol/L CL 109 H 96-108 mmol/L CO2 21 L 22-29 mmol/L Gap 14 12-20 BUN 11 9-16 mg/dL Creat 0.73 0.5-1.4 mg/dL EGFR > 60 NOTE: For -[place]hut[place] individuals, multiply the result by 1.210. Chronic Kidney Disease: Estimated GFR < 60 mL/min/1.73m2 Severe Kidney Disease: Estimated GFR < 15 mL/min/1.73m2 Glucose, Random 112 60-115 mg/dL CA 10.8 H 8.4-10.2 mg/dL Phosphorus 2.7 2.7-4.5 mg/dL Total Bili 0.3 0.0-1.0 mg/dL AST (GOT) 20 5-31 U/L ALT (GPT) 28 0-31 U/L CRP 0.50 < or = 0.50 mg/dL Protein, Total 6.7 6.5-8.0 g/dL Alb 4.2 3.5-5.0 g/dL Alk Phos 67 39-117 U/L Vit D 25-OH Tot 30.2 >30 ng/mL Health Based Reference Values* < 20 ng/mL Deficient 20-30 ng/mL Insufficient > 30 ng/mL Sufficient Assessment and Plan Assessment & Plan (1) Annual visit for general adult medical examination with abnormal findings: Code(s): Z00.01 - Encounter for general adult medical examination with abnormal findings Plan: Will check appropriate labs. Continue regular dental visit every 6 months and regular eye exams, at least every 2 years. Take adequate calcium in diet and vitamin-D 3 at 2000 IU per cap once a day, in addition to weight-bearing exercises to help maintain good muscle tone and weight control. Has appointment for follow-up with Dr. Ochoa for history of osteoporosis and hyperparathyroidism. Instructed to do self-breast exam, and recommended to get yearly mammogram, gets it done at [facility].. Up-to-date with her screening colonoscopy. Up-to-date with her pneumonia vaccine, flu vaccine and COVID vaccination including booster. Reminded to get shingles vaccine (2) Impaired fasting glucose: Code(s): R73.01 - Impaired fasting glucose Plan: Your fasting blood sugars elevated above 100 mg/dL. Impaired glucose metabolism O2 at risk for developing diabetes mellitus type 2, as well as heart attack and stroke later on. Lifestyle changes at just weight loss, healthy eating habits, and regular exercise are important, and can prevent the progression to diabetes (3) Essential hypertension: Code(s): I10 - Essential (primary) hypertension Plan: Blood pressure goal is less than 130/80. Blood pressure today is mildly elevated, continue with amlodipine 5 mg daily, Reinforced importance of following a low sodium diet, getting regular exercise, and lowering stress levels. (4) Dyslipidemia: Code(s): E78.5 - Hyperlipidemia, unspecified Plan: Fasting lipid panel ordered . Stressed importance of adherence to low- cholesterol diet and regular exercise, at least 30 minutes 3 to 4 times a week. Advised patient to make healthy food choices, eat more fruits, vegetables, whole grains, wild caught fish and low-fat dairy. Limit amount of meat and fried or fatty food products, as well as processed foods and fast foods. (5) Seronegative rheumatoid arthritis: Code(s): M06.00 - Rheumatoid arthritis without rheumatoid factor, unspecified site Plan: Followed by Rheumatology Clinic, currently on methotrexate and low-dose prednisone (6) Primary hyperparathyroidism: Comment: Followed by Dr. Pack Code(s): E21.0 - Primary hyperparathyroidism Plan: Currently being followed by endocrine clinic (7) Osteopenia of femoral neck: Comment: Dr. Pack, received Reclast 10/2019,12/2020, 12/2021 previously had one benoit of Prolia 12/2018(stopped due to flare of PMR) Code(s): M85.859 - Other specified disorders of bone density and structure, unspecified thigh Plan: Followed by endocrine clinic, has appointment with Dr. Ochoa Orders: Orders Lipid Panel 02/09/23 R73.01 - Impaired fasting glucose, I10 - Essential (primary) hypertension, E78.5 - Hyperlipidemia, unspecified, Z00.01 - Encounter for general adult medical examination with abnormal findings Glucose Fasting 02/09/23 R73.01 - Impaired fasting glucose, I10 - Essential (primary) hypertension, E78.5 - Hyperlipidemia, unspecified, Z00.01 - Encounter for general adult medical examination with abnormal findings Coding Level of Care Code Est Pt Prev Care >65y(89848) Diagnoses Annual visit for general adult medical examination with abnormal findings Z00.01 Impaired fasting glucose R73.01 Essential hypertension I10 Dyslipidemia E78.5 Seronegative rheumatoid arthritis M06.00 Primary hyperparathyroidism E21.0 Osteopenia of femoral neck M85.859 Additional Codes HARRY-7 Assessment Billing - HARRY-7 Assessment Tool: HARRY-7 Assessment [id number] ([id number])
== END 2023-02-09 12:17 | disposition home or self-care (01) ==
LOC: HO.HMGC 10:51
PROVIDERS: PCP Internal Medicine; Visit Provider Internal Medicine
DX: Z00.00 Encounter for general adult medical examination without abnormal findings (principal); M06.00 Rheumatoid arthritis without rheumatoid factor, unspecified site; E21.0 Primary hyperparathyroidism; R73.01 Impaired fasting glucose; I10 Essential (primary) hypertension; E78.5 Hyperlipidemia, unspecified; M85.859 Other specified disorders of bone density and structure, unspecified thigh
CPT/HCPCS: 99397

== ENCOUNTER 2023-02-16 14:29 | Outpatient (AMB) | payer MEDICARE, SELFPAY ==
[2023-02-16 14:32] VITALS: BP 146/86; PULSE 78; BMI 31.6
--- NOTE | 2023-02-16 14:32 | A.OFFVIS_ITS ---
Intake Vital Signs 02/16/23 14:32 Height 5 ft 3 in Weight 178 lb 2.136 oz BMI 31.6 BP 146/86 H Blood Pressure Location Lt brachial Position Sitting Pulse 78 Pulse Source Pulse Oximeter Intake Visit Reasons: Osteoporosis/CONFIRMED Intake Note: New patient to Dr. Ochoa present today for Osteoporosis. Previously managed by Dr. Pack. Cv Rn Required: No Accompanied by: Self / Same As Patient Allergies nicotine [NICOTINE] Allergy (Intermediate, Verified 02/16/23 14:36) NICOTINE PATCH-BLISTERS, skin irritation/blisters, skin irritation/blisters amoxicillin [From AUGMENTIN] Adverse Reaction (Intermediate, Verified 02/16/23 14:36) VOMITING/DIARRHEA Latex Allergy (Mild, Uncoded 02/09/23 11:49) Rash Statins Support Adverse Reaction (Intermediate, Uncoded 02/09/23 11:49) muscle cramps Medication List - Last Reconciled 02/16/23 by Dwayne Ochoa MD amlodipine 5 mg PO DAILY cholecalciferol (vitamin D3) 25 mcg PO DAILY famotidine 40 mg PO DAILY folic acid 1 mg PO DAILY methotrexate sodium 15 mg (6 x 2.5 mg) PO QWEEK prednisone 4 mg (4 x 1 mg) PO DAILY zoledronic lwzd-uylyvinb-ujxle 5 mg/100 mL (Reclast) 5 ea IV .once a year HPI HPI Comments History of Present Illness Details 67 YO Female with PMHx PMR on chronic prednisone, Primary hyperparathyroidism who is seen in F/U for Primary Hyperparathyroidism and Osteopenia. Patient last saw Dr. Pack on 11/25/2021 Patient received diagnosis of PMR in 2018 and has remained on Prednisone ever since. Started at 20 mg PO daily and this dose has been slowly tapered to her current dose of 10 mg PO daily. She also has hyperparathyroidism with elevated Calcium levels noted as far back as 2008. Recent BMD revealed Osteopenia of the hip and the spine. She was treated with 1 dose of Prolia 01/25/2019, but had a flare of her PMR shortly after so her Rubbing Bed Operator has recommended the Prolia be discontinued. She then was transitioned to Reclast and had 1 dose of this October 2019, second 01/04/2021. She is seen today in F/U. We repeated lab work which confirmed hyperparathyroidism with PTH of 81, Total Calcium of 10.1 with Albumin WNL, and Vitamin D of 27. DEXA of the forearm was ordered, and revealed osteopenia. Repeat PTH was within normal limits as was calcium Interestingly her daughter has a similar presentation. No history of pathologic fracture or ONJ. Has no servings of dairy daily. Takes Vitamin D 1000 IU daily. Does not take a Calcium supplement. Uses Prednisone 10 mg PO daily and has been slowly tapering this. Has been on Prednisone use for over 2 year due to her PMR. Denies ever using PPI, anticoagulant, or antiepileptic medication. Does weight bearing exercise days per week in the form of. Fracture history: Never broken a bone. Height loss: Denies height loss. 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 Menses was always regular. Menopause at age 47. , did not breastfeed. History of Kidney stones: No history of kidney stones. Family history of hip fracture in her mother. No known family history of Osteoporosis. UTD on dental cleanings and sees dentist every 6 months. No planned upcoming dental work or extractions. DXA dated: 08/22/2020 L1-L4: T = -0.1 LFN: T = -1.7 RFN: T = -1.3 RTH: T = -0.8 Distal L Forearm: T = -1.6 US Kidney: 09/06/18 FINDINGS: RIGHT KIDNEY: 9.7 x 5.1 x 5.0 cm (SAG x AP x TRV). The kidney is normal in size, contour, and echogenicity. Renal cortical thickness is normal. No calculi or focal parenchymal lesions. No hydronephrosis. LEFT KIDNEY: 10.5 x 5.0 x 4.9 cm (SAG x AP x TRV). The kidney is normal in size, contour, and echogenicity. Renal cortical thickness is normal. No calculi or focal parenchymal lesions. No hydronephrosis. IMPRESSION: Unremarkable examination. Labs: Laboratory Tests 10/31/21 10/31/21 11:20 11:20 Creatinine 0.72 Estimated GFR > 60 Albumin 4.2 25-OH Vitamin D To moises 34.0 PTH Intact 76 Calcium (PTH Intac t) 10.0 Received 3 doses of Reclast . No hx of FX PFSH Medical History Impaired fasting glucose Goiter Dyslipidemia Hyperparathyroidism Vitamin D deficiency Osteoporosis Primary hyperparathyroidism Osteopenia of femoral neck Essential hypertension Polymyalgia rheumatica Surgical History History of removal of cyst History of colonoscopy Family History Father HTN (hypertension) High cholesterol Dementia Mother Pneumonia Maternal Grandfather Unknown family medical history Maternal Grandmother Pneumonia Paternal Grandfather Unknown family medical history Paternal Grandmother Unknown family medical history Social History Household Members: None Housing: House Are you a primary child care centre director to a significant other at home: No Do you presently have visiting nurse or other home services: No Alcohol intake: current Alcohol intake frequency: a few times a month Alcohol type: wine Patient Tobacco Use Status: Former Tobacco user e-Cigarette/Vaping Use: Never Used service: No Current occupational status: retired Cognitive needs: No Hearing needs: No Vision needs: No Physical Exam Vital Signs: Last Vital Signs Pulse 78 02/16/23 14:32 BP 146/86 H 02/16/23 14:32 BMI result Body Mass Index 31.6 Assessment & Plan Assessment & Plan (1) Osteoporosis: Code(s): M81.0 - Age-related osteoporosis without current pathological fracture Plan: This 67-year-old white female with a history of low bone mass with chronic treatment for PMR with prednisone and methotrexate. She received 1 dose of Prolia and 2 doses of Reclast. Secondary workup was negative. NTX remains suppressed. At this point, patient returned to the care of her primary care provider. There is no need for pharmacologic treatment at this point. Patient should try to get 1200 mg of calcium in her diet. Her primary care provider can repeat her DEXA bone density in 2 years time. If her bone density declines and osteoporotic range, either alendronate or another does of intravenous Reclast can be given Coding Level of Care Code Est Pt Level 3 (23170) Diagnoses Osteoporosis M81.0
== END 2023-02-16 14:58 | disposition home or self-care (01) ==
PROVIDERS: PCP Internal Medicine; Visit Provider Internal Medicine Endocrinology, Diabetes & Metabolism
DX: M81.0 Age-related osteoporosis without current pathological fracture (principal)
CPT/HCPCS: 99213

== ENCOUNTER → 2023-02-16 14:29 | Outpatient (BNVA) | payer MEDICARE, SELFPAY | PROVIDERS: Visit Provider Internal Medicine Endocrinology, Diabetes & Metabolism | DX: M81.0 Age-related osteoporosis without current pathological fracture (principal) | CPT/HCPCS: 99212 ==

== ENCOUNTER 2023-02-18 08:58 | Outpatient (REF) | payer MEDICARE, SELFPAY ==
[2023-02-18 12:17] LABS: Cholesterol 217 mg/dL (<200); Glucose Fasting 92 mg/dL (60-99); HDL Cholesterol 62 mg/dL (>40); LDL Cholesterol Calculated 132 mg/dL (<100); Triglycerides 118 mg/dL (<150)
== END 2023-02-18 08:59 | disposition home or self-care (01) ==
LOC: HO.HMGCLDS 08:58
PROVIDERS: PCP Internal Medicine; Visit Provider Internal Medicine
DX: Z00.01 Encounter for general adult medical examination with abnormal findings (principal); R73.01 Impaired fasting glucose; I10 Essential (primary) hypertension; E78.5 Hyperlipidemia, unspecified
CPT/HCPCS: 36415; 80061; 82947

== ENCOUNTER 2023-02-26 10:24 | Outpatient (AMB) | payer MEDICARE, SELFPAY ==
[2023-02-26 10:40] VITALS: BP 122/78; PULSE 77; TEMP 36.6; O2SAT 98; BMI 31.8
--- NOTE | 2023-02-26 10:40 | MHC.OFFVIS ---
Intake Vital Signs 02/26/23 10:40 Height 5 ft 3 in Weight 179 lb 10.828 oz BMI 31.8 BP 122/78 Blood Pressure Location Lt brachial Position Sitting Pulse 77 Pulse Source Pulse Oximeter Temp 97.8 F Temp Source Tympanic Pulse Oximetry (%) 98 Oxygen Delivery Method Room Air Intake Visit Reasons: ra Allergies nicotine [NICOTINE] Allergy (Intermediate, Verified 02/26/23 10:42) NICOTINE PATCH-BLISTERS, skin irritation/blisters, skin irritation/blisters amoxicillin [From AUGMENTIN] Adverse Reaction (Intermediate, Verified 02/26/23 10:42) VOMITING/DIARRHEA Latex Allergy (Mild, Uncoded 02/26/23 10:42) Rash Statins Support Adverse Reaction (Intermediate, Uncoded 02/26/23 10:42) muscle cramps Medication List - Last Reconciled 02/26/23 by Melony Leonardo, RODRIGO amlodipine 5 mg PO DAILY cholecalciferol (vitamin D3) 25 mcg PO DAILY famotidine 40 mg PO DAILY folic acid 1 mg PO DAILY methotrexate sodium 15 mg (6 x 2.5 mg) PO QWEEK prednisone 4 mg (4 x 1 mg) PO DAILY zoledronic fonr-dyknlsxr-kcecx 5 mg/100 mL (Reclast) 5 ea IV .once a year HPI HPI Comments History of Present Illness Details The patient returns for evaluation of her rheumatoid arthritis. She remains on methotrexate 15 mg weekly, folic acid 1 mg daily, and prednisone 1 mg daily. She feels a little bit more discomfort in the shoulders and the hands with the reduction of prednisone below 3 mg daily. She does not seem to have any side effects with the methotrexate however. Areas of pain include the left shoulder, the thumbs, and the lateral left hip. She says these pains are not particularly bothersome. She occasionally takes some Advil for them with some benefit. [facility] Medical History Impaired fasting glucose Goiter Dyslipidemia Hyperparathyroidism Vitamin D deficiency Osteoporosis Primary hyperparathyroidism Osteopenia of femoral neck Essential hypertension Polymyalgia rheumatica Surgical History History of removal of cyst History of colonoscopy Family History Father HTN (hypertension) High cholesterol Dementia Mother Pneumonia Maternal Grandfather Unknown family medical history Maternal Grandmother Pneumonia Paternal Grandfather Unknown family medical history Paternal Grandmother Unknown family medical history Social History Household Members: None Housing: House Are you a primary rn intensive care unit to a significant other at home: No Do you presently have visiting nurse or other home services: No Alcohol intake: current Alcohol intake frequency: a few times a month Alcohol type: wine Patient Tobacco Use Status: Former Tobacco user e-Cigarette/Vaping Use: Never Used service: No Current occupational status: retired Cognitive needs: No Hearing needs: No Vision needs: No Review of Systems Const Details: She has gained weight this fall. She admits she is not exercising as much as he was exercising in the summer on her trip to [place]. Negative for appetite change, fever, chills, malaise and fatigue Eyes Details: Negative for vision change, dry eyes,headaches and dizziness ENT Details: Negative for hearing change, tinnitus, oral ulcer, nose bleeds and oral dryness. Card Details: Negative chest pain, edema and syncope Resp Details: Negative for SOB, cough and wheezing GI Details: Negative indigestion/heartburn, nausea, abdominal pain, bowel changes, diarrhea, constipation and bloody stool. Skin/Breast Details: Negative for itching, rash, hives, Raynaud's symptoms, sun sensitivity, and skin cancer Endo Details: Negative for polyuria and polydypsia Edgar/Lymph Details: Negative for excessive bruising or bleeding. Physical Exam Vital Signs: Last Vital Signs Temp 97.8 F 02/26/23 10:40 Pulse 77 02/26/23 10:40 BP 122/78 02/26/23 10:40 Pulse Ox 98 02/26/23 10:40 Oxygen Delivery Method Room Air 02/26/23 10:40 BMI result Body Mass Index 31.8 APPEARANCE: Patient in no acute distress EYES no redness, pupils equal and reactive to light, eyelids normal. No temporal artery tenderness, redness or swelling. EXTREMITIES: No edema, no calf tenderness, normal peripheral pulses. SKIN: No inflammatory or neoplastic lesions. Normal color and turgor JOINT EXAM: Cervical Spine:? Full range of motion without pain; no tenderness. Thoracic Spine: No scoliosis.? No tenderness on palpation. Lumbar Spine:? Alignment normal.? Full range of motion without pain, no tenderness. Hands:? LEFT:? There is mild tenderness at the 1st MCP with there is no swelling. The other MCPs have no swelling or tenderness.? There is some thickening and tenderness at the 2nd and 3rd PIP joints.? Otherwise no swelling, tenderness, erythema or warmth throughout the hand.? RIGHT:? No MCP swelling or tenderness.? There is some slight thickening at the 2nd and 3rd PIP joint, the 3rd PIP has mild tenderness.? Otherwise no other swelling, tenderness, erythema or warmth throughout the hand. Wrists:? Right:? no discomfort with flexion or extension at 75 degrees and no tenderness or swelling.? Left:? No pain with flexion or extension at 75 degrees.? Mild tenderness without swelling.? Elbows: Normal pain-free range of motion without tenderness, swelling, increased warmth or erythema. Shoulders:? LEFT: Full range of motion, with slight discomfort at the extremes of normal range of motion.? This discomfort is felt over the deltoid. There is no tenderness, weakness, swelling, increased warmth or erythema. ? RIGHT: Full range of motion, slight discomfort over the biceps and deltoid regions reported with abduction above 90 degrees, she is able to complete range of motion fully despite slight pain. ? No tenderness, weakness, swelling, increased warmth or erythema. Hips:? Full range of motion without pain. Hip bursa: Mild left trochanteric tenderness. Knees:? Right:? Normal pain-free range of motion without tenderness, swelling, increased warmth or erythema.? There is no effusion or crepitation.? Left:? Pain-free range of motion with a minimal effusion but no tenderness, redness or warmth. Ankles:? Normal pain-free range of motion without tenderness, swelling, increased warmth or erythema. Feet:? Normal pain-free range of motion without tenderness, swelling, increased warmth or erythema. ? Tender points: No tenderness to digital palpation at the occiput, trapezius, second rib, lateral epicondyle, knees, greater trochanter and gluteal area bilaterally. ? Results Reviewed Results Reviewed: Laboratory Tests 02/05/23 10:01 WBC 7.5 Hgb 13.6 ESR 6 Creatinine 0.74 AST 21 ALT 35 H C-Reactive Protein 0.42 Assessment & Plan Assessment & Plan (1) Long-term use of immunosuppressant medication: Code(s): Z79.60 - intermediate (current) use of unspecified immunomodulators and immunosuppressants (2) Elevated transaminase level: Code(s): R74.01 - Elevation of levels of liver transaminase levels (3) Seronegative rheumatoid arthritis: Code(s): M06.00 - Rheumatoid arthritis without rheumatoid factor, unspecified site Plan She has had a bit more pain with the slight reduction in the prednisone but no clear signs of significant synovitis. She seems to be tolerate methotrexate dose but now has mild elevation of one of the transaminases. This could be related to her weight gain over the fall. She was encouraged to try to work to be more active and lose some weight. We will recheck the transaminase today. If it remains elevated we may be forced to reduce the methotrexate dose. For now we will keep the prednisone at 1 mg daily and plan to see her back with lab work before that visit in about 2 months. Orders: Orders Aspartate Amino Transferase Today Z79.899 - Other fdc (current) drug therapy Alanine Aminotransferase Today Z79.899 - Other fdc (current) drug therapy Coding Level of Care Code Est Pt Level 3 (26150) Diagnoses Long-term use of immunosuppressant medication Z79.60 Elevated transaminase level R74.01 Seronegative rheumatoid arthritis M06.00
== END 2023-02-26 11:27 | disposition home or self-care (01) ==
PROVIDERS: PCP Internal Medicine; Visit Provider Internal Medicine Rheumatology
DX: Z79.60 Long term (current) use of unspecified immunomodulators and immunosuppressants (principal); R74.01 Elevation of levels of liver transaminase levels; M06.00 Rheumatoid arthritis without rheumatoid factor, unspecified site
CPT/HCPCS: 99213

== ENCOUNTER → 2023-02-26 10:24 | Outpatient (BNVA) | payer MEDICARE, SELFPAY | PROVIDERS: PCP Internal Medicine; Visit Provider Internal Medicine Rheumatology | DX: M06.00 Rheumatoid arthritis without rheumatoid factor, unspecified site (principal); R74.01 Elevation of levels of liver transaminase levels; Z79.60 Long term (current) use of unspecified immunomodulators and immunosuppressants | CPT/HCPCS: 99212 ==

== ENCOUNTER 2023-02-26 11:30 | Outpatient (REF) | payer MEDICARE, SELFPAY ==
[2023-02-26 14:03] LABS: Alanine Aminotransferase 32 U/L (0-31); Aspartate Amino Transferase 19 U/L (5-31)
== END 2023-02-26 11:31 | disposition home or self-care (01) ==
LOC: HO.10HDL 11:30
PROVIDERS: Visit Provider Internal Medicine Rheumatology
DX: M06.00 Rheumatoid arthritis without rheumatoid factor, unspecified site (principal); Z79.899 Other long term (current) drug therapy
CPT/HCPCS: 36415; 84450; 84460

== ENCOUNTER 2023-04-24 10:08 | Outpatient (REF) | payer MEDICARE, SELFPAY ==
[2023-04-24 13:45] LABS: Basophils Percent Auto 0.3 % (0-2); Eosinophils Absolute Auto 0.1 X10*3/uL (0.0-0.4); Eosinophils Percent Auto 1.4 % (0-4); Hematocrit 40.5 % (37.0-47.0); Hemoglobin 13.8 g/dl (12.0-16.0); Imm Gran Abs Auto 0.04 X10*3/uL (0.00-0.03); Imm Gran Pct Auto 0.6 % (0.0-0.4); Lymphocytes Absolute Auto 1.6 X10*3/uL (1.2-4.9); Lymphocytes Percent Auto 24.7 % (20-40); MANUAL DIFF FLAG SCAN; Mean Corpuscular HGB Conc 34.1 g/dl (31.0-35.0); Mean Corpuscular Hemoglobin 33.3 pg (27.0-33.0); Mean Corpuscular Volume 97.6 fL (80.0-98.0); Mean Platelet Volume 12.9 fL (9.4-12.3); Monocytes Absolute Auto 0.5 X10*3/uL (0.1-1.2); Monocytes Percent Auto 8.5 % (2-11); Neutrophils Absolute Auto 4.1 x10*3/uL (2.0-8.3); Neutrophils Percent Auto 64.5 % (45-73); PLT CLUMP 1; Red Blood Count 4.15 X10*6/uL (4.20-5.50); Red Cell Distribution Width 14.6 % (11.0-16.0); SCAN SMEAR FLAG 1; White Blood Count 6.3 X10*3/uL (4.8-10.8)
[2023-04-24 13:46] LABS: Platelet Count 128 X10*3/uL (160-400)
[2023-04-24 14:00] LABS: Alanine Aminotransferase 43 U/L (0-31); Aspartate Amino Transferase 23 U/L (5-31); C Reactive Protein 0.43 mg/dL (< or = 0.50); Estimated Glomerular Filt Rate > 60
[2023-04-24 14:10] LABS: SLIDE REVIEW VERIFIED
[2023-04-24 14:24] LABS: Erythrocyte Sedimentation Rate 7 MM/HR (0-20)
== END 2023-04-24 10:09 | disposition home or self-care (01) ==
LOC: HO.HMGCLDS 10:08
PROVIDERS: PCP Internal Medicine; Visit Provider Internal Medicine Rheumatology
DX: M06.00 Rheumatoid arthritis without rheumatoid factor, unspecified site (principal); Z79.899 Other long term (current) drug therapy
CPT/HCPCS: 36415; 82565; 84450; 84460; 85025; 85652; 86140

== ENCOUNTER 2023-04-29 09:56 | Outpatient (AMB) | payer MEDICARE, SELFPAY ==
--- NOTE | 2023-04-29 09:57 | MHC.OFFVIS ---
Intake Vital Signs 04/29/23 09:58 Height 5 ft 2 in Weight 180 lb 1.883 oz BMI 32.9 BP 124/78 Blood Pressure Location Rt brachial Position Sitting Respiration 15 Pulse 83 Pulse Source Pulse Oximeter Intake Visit Reasons: RA Sweatband Shaper Required: No Allergies nicotine [NICOTINE] Allergy (Intermediate, Verified 04/29/23 10:00) NICOTINE PATCH-BLISTERS, skin irritation/blisters, skin irritation/blisters amoxicillin [From AUGMENTIN] Adverse Reaction (Intermediate, Verified 04/29/23 10:00) VOMITING/DIARRHEA Latex Allergy (Mild, Uncoded 04/29/23 10:00) Rash Statins Support Adverse Reaction (Intermediate, Uncoded 04/29/23 10:00) muscle cramps Medication List - Last Reconciled 04/29/23 by Melony Leonardo RN amlodipine 5 mg PO DAILY cholecalciferol (vitamin D3) 25 mcg PO DAILY famotidine 40 mg PO DAILY folic acid 1 mg PO DAILY methotrexate sodium 15 mg (6 x 2.5 mg) PO QWEEK prednisone 1 mg PO DAILY zoledronic ocgs-cofhjewr-qwddq 5 mg/100 mL (Reclast) 5 ea IV .once a year HPI HPI Comments History of Present Illness Details Mrs. Appiah 67-year-old female returns for evaluation of her PMR versus rheumatoid arthritis. She is on on methotrexate 12.5 mg weekly, folic acid 1 mg daily, and prednisone 1 mg daily. At last visit methotrexate was reduced to 5 pills due to elevated transaminase. She continues with some discomfort in the shoulders, specifically pinpoint tenderness at the bilateral bicipital groove. She does not seem to have any side effects with the methotrexate but does not think it is helping. Areas of concern today include the shoulders, the lateral left hip and some tenderness to the lower legs. She says these pains are not particularly bothersome. She occasionally takes some Advil for them with some benefit. [facility] Medical History (Updated 05/03/23 @ 19:38 by CHANTAL Rosales) Pain of both shoulder joints Impaired fasting glucose Goiter Dyslipidemia Hyperparathyroidism Vitamin D deficiency Primary hyperparathyroidism Osteopenia of femoral neck Essential hypertension Polymyalgia rheumatica Surgical History History of removal of cyst History of colonoscopy Family History Father HTN (hypertension) High cholesterol Dementia Mother Pneumonia Maternal Grandfather Unknown family medical history Maternal Grandmother Pneumonia Paternal Grandfather Unknown family medical history Paternal Grandmother Unknown family medical history Social History Household Members: None Housing: House Are you a primary hospice spiritual care coordinator to a significant other at home: No Do you presently have visiting nurse or other home services: No Alcohol intake: current Alcohol intake frequency: a few times a month Alcohol type: wine Patient Tobacco Use Status: Former Tobacco user e-Cigarette/Vaping Use: Never Used service: No Current occupational status: retired Cognitive needs: No Hearing needs: No Vision needs: No Review of Systems Const All systems reviewed & are unremarkable except as noted in HPI and below Physical Exam Vital Signs: Last Vital Signs Pulse 83 04/29/23 09:58 Resp 15 04/29/23 09:58 BP 124/78 04/29/23 09:58 BMI result Body Mass Index 32.9 APPEARANCE: Patient in no acute distress EYES no redness. No temporal artery tenderness, redness or swelling. EXTREMITIES: trace non-pitting edema above the rim of the sock - appeared to be cause by the sock creating a tourniquette like effect; there is tenderness to the area where the rim of the sock makes the compression , no calf tenderness, normal peripheral pulses. SKIN: No inflammatory or neoplastic lesions. Normal color and turgor JOINT EXAM: Cervical Spine:? Full range of motion without pain; no tenderness. Thoracic Spine: No scoliosis.? No tenderness on palpation. Lumbar Spine:? Alignment normal.? Full range of motion without pain, no tenderness. Hands:? LEFT:? There is mild tenderness at the 1st MCP with there is no swelling. The other MCPs have no swelling or tenderness.? There is some thickening but no tenderness at the 2nd and 3rd PIP joints.? Otherwise no swelling, tenderness, erythema or warmth throughout the hand.? RIGHT:? No MCP swelling or tenderness.? There is some slight thickening at the 2nd and 3rd PIP joint. Otherwise no other swelling, tenderness, erythema or warmth throughout the hand. Wrists:? Right:? no discomfort with flexion or extension at 75 degrees and no tenderness or swelling.? Left:? No pain with flexion or extension at 75 degrees.? Mild tenderness without swelling.? Elbows: Normal pain-free range of motion without tenderness, swelling, increased warmth or erythema. Shoulders:? LEFT: Full range of motion, with slight discomfort at the extremes of normal range of motion.? This discomfort is felt over the deltoid and at the bicipital groove. There is no tenderness, weakness, swelling, increased warmth or erythema. ? RIGHT: Full range of motion, slight discomfort over the biceps and deltoid regions reported with abduction above 90 degrees, she is able to complete range of motion fully despite slight pain. ? No tenderness, weakness, swelling, increased warmth or erythema. Hips:? Full range of motion without pain. Hip bursa: Mild left trochanteric tenderness. Knees:? Right:? Normal pain-free range of motion without tenderness, swelling, increased warmth or erythema.? There is no effusion or crepitation.? Left:? Pain-free range of motion with a minimal effusion but no tenderness, redness or warmth. Ankles:? Normal pain-free range of motion without tenderness, swelling, increased warmth or erythema. Feet:? Normal pain-free range of motion without tenderness, swelling, increased warmth or erythema. ? Tender points: No tenderness to digital palpation at the occiput, trapezius, second rib, lateral epicondyle, knees, greater trochanter and gluteal area bilaterally. ? Results Reviewed Results Reviewed: Laboratory Tests 02/05/23 10:01 WBC 7.5 Hgb 13.6 ESR 6 Creatinine 0.74 AST 21 ALT 35 H C-Reactive Protein 0.42 Laboratory Tests 04/24/23 10:18 WBC 6.3 RBC 4.15 L Hgb 13.8 Hct 40.5 ESR 7 Creatinine 0.76 AST 23 ALT 43 H C-Reactive Protein 0.43 Assessment & Plan Assessment & Plan (1) Long-term use of immunosuppressant medication: Code(s): Z79.60 - custodial (current) use of unspecified immunomodulators and immunosuppressants (2) Elevated transaminase level: Code(s): R74.01 - Elevation of levels of liver transaminase levels (3) Seronegative rheumatoid arthritis: Code(s): M06.00 - Rheumatoid arthritis without rheumatoid factor, unspecified site (4) Pain of both shoulder joints: Code(s): M25.511 - Pain in right shoulder; M25.512 - Pain in left shoulder Plan #RA/Shoulder Pain: At 02/26/2023 visit, she was thought to have a bit more pain with the slight reduction in the prednisone but no clear signs of significant synovitis. I do not see that on this visit so we will continue the 1 mg of prednisone daily. I will also stopped the methotrexate. The patient did not register any worsening of her symptoms with the reduced dose and feels as if there is no improvement or difference since she started taking methotrexate. Her ESR and CRP is at goal. She is only on 1 mg of prednisone so I think it is reasonable at this time to hold the methotrexate. Her initial diagnosis was PMR and I think that is largely resolved. I encouraged patient to pay attention to changes in her symptoms/worsening without methotrexate. At next visit we will consider to stopped the prednisone. #Elevated Transaminase: The ALT continue to increase even with the reduction in methotrexate dose from 6 pills to 5 pills at last visit. We will hold MTX and reassess. I spent 35 minutes reviewing history, evaluating patient, and documenting Follow-up in 6 weeks Orders: Orders C Reactive Protein 04/29/23 R74.01 - Elevation of levels of liver transaminase levels, Z79.60 - custodial (current) use of unspecified immunomodulators and immunosuppressants Alanine Aminotransferase 04/29/23 R74.01 - Elevation of levels of liver transaminase levels, Z79.60 - custodial (current) use of unspecified immunomodulators and immunosuppressants, Z79.899 - Other half-way (current) drug therapy Aspartate Amino Transferase 04/29/23 R74.01 - Elevation of levels of liver transaminase levels, Z79.60 - custodial (current) use of unspecified immunomodulators and immunosuppressants, Z79.899 - Other equipment operator intermodal yard (current) drug therapy Erythrocyte Sedimentation Rate 04/29/23 R74.01 - Elevation of levels of liver transaminase levels, Z79.60 - manager intermediate (current) use of unspecified immunomodulators and immunosuppressants Complete Blood Count Auto Diff 04/29/23 R74.01 - Elevation of levels of liver transaminase levels, Z79.60 - manager intermediate (current) use of unspecified immunomodulators and immunosuppressants, Z79.899 - Other equipment operator intermodal yard (current) drug therapy Coding Level of Care Code Est Pt Level 4 (37485) Diagnoses Long-term use of immunosuppressant medication Z79.60 Elevated transaminase level R74.01 Seronegative rheumatoid arthritis M06.00 Pain of both shoulder joints M25.511; M25.512
[2023-04-29 09:58] VITALS: BP 124/78; PULSE 83; RESP 15; BMI 32.9
== END 2023-04-29 10:36 | disposition home or self-care (01) ==
PROVIDERS: PCP Internal Medicine; Visit Provider Nurse Practitioner Family
DX: Z79.60 Long term (current) use of unspecified immunomodulators and immunosuppressants (principal); R74.01 Elevation of levels of liver transaminase levels; M06.00 Rheumatoid arthritis without rheumatoid factor, unspecified site; M25.511 Pain in right shoulder; M25.512 Pain in left shoulder
CPT/HCPCS: 99214

== ENCOUNTER → 2023-04-29 09:56 | Outpatient (BNVA) | payer MEDICARE, SELFPAY | PROVIDERS: PCP Internal Medicine; Visit Provider Nurse Practitioner Family | DX: M06.00 Rheumatoid arthritis without rheumatoid factor, unspecified site (principal); M25.511 Pain in right shoulder; M25.512 Pain in left shoulder; R74.01 Elevation of levels of liver transaminase levels; Z79.60 Long term (current) use of unspecified immunomodulators and immunosuppressants | CPT/HCPCS: 99212 ==

== ENCOUNTER 2023-05-27 09:31 | Outpatient (REF) | payer MEDICARE, SELFPAY ==
[2023-05-27 13:55] LABS: Basophils Percent Auto 0.3 % (0-2); Eosinophils Absolute Auto 0.1 X10*3/uL (0.0-0.4); Eosinophils Percent Auto 1.4 % (0-4); Hemoglobin 14.2 g/dl (12.0-16.0); Imm Gran Abs Auto 0.02 X10*3/uL (0.00-0.03); Imm Gran Pct Auto 0.3 % (0.0-0.4); Lymphocytes Absolute Auto 1.8 X10*3/uL (1.2-4.9); Lymphocytes Percent Auto 27.6 % (20-40); Mean Corpuscular HGB Conc 33.8 g/dl (31.0-35.0); Mean Corpuscular Volume 97.7 fL (80.0-98.0); Mean Platelet Volume 13.2 fL (9.4-12.3); Monocytes Absolute Auto 0.6 X10*3/uL (0.1-1.2); Monocytes Percent Auto 9.3 % (2-11); Neutrophils Absolute Auto 3.9 x10*3/uL (2.0-8.3); Neutrophils Percent Auto 61.1 % (45-73); Red Cell Distribution Width 14.2 % (11.0-16.0)
[2023-05-27 13:56] LABS: Alanine Aminotransferase 42 U/L (0-31); Aspartate Amino Transferase 23 U/L (5-31); C Reactive Protein 0.53 mg/dL (< or = 0.50); Platelet Count 127 X10*3/uL (160-400); White Blood Count 6.4 X10*3/uL (4.8-10.8)
[2023-05-27 14:24] LABS: Erythrocyte Sedimentation Rate 6 MM/HR (0-20)
== END 2023-05-27 09:32 | disposition home or self-care (01) ==
LOC: HO.HMGCLDS 09:31
PROVIDERS: PCP Internal Medicine; Visit Provider Nurse Practitioner Family
DX: R74.01 Elevation of levels of liver transaminase levels (principal); Z79.899 Other long term (current) drug therapy; Z79.60 Long term (current) use of unspecified immunomodulators and immunosuppressants
CPT/HCPCS: 36415; 84450; 84460; 85025; 85652; 86140

== ENCOUNTER 2023-06-19 09:42 | Outpatient (AMB) | payer MEDICARE, SELFPAY ==
--- NOTE | 2023-06-19 09:42 | A.OFFVIS_ITS ---
Vital Signs 06/19/23 09:47 Height 5 ft 2 in Weight 180 lb 8.937 oz BMI 33.0 BP 130/76 Blood Pressure Location Rt brachial Position Sitting Pulse 81 Pulse Source Pulse Oximeter Pulse Oximetry (%) 96 Oxygen Delivery Method Room Air Intake Visit Reasons: RA/CM Intake Note: Patient presents today for RA follow up. Reports she has not taken MTX or folic acid since last visit. [employer] Former Required: No Accompanied by: Self / Same As Patient Allergies nicotine [NICOTINE] Allergy (Intermediate, Verified 06/19/23 09:48) NICOTINE PATCH-BLISTERS, skin irritation/blisters, skin irritation/blisters amoxicillin [From AUGMENTIN] Adverse Reaction (Intermediate, Verified 06/19/23 09:48) VOMITING/DIARRHEA Latex Allergy (Mild, Uncoded 06/19/23 09:48) Rash Statins Support Adverse Reaction (Intermediate, Uncoded 06/19/23 09:48) muscle cramps HPI Comments Details: Mrs. Appiah 67-year-old female returns for evaluation of her PMR versus rheumatoid arthritis. She has since stopped methotrexate 12.5 mg weekly, folic acid 1 mg daily, and remains prednisone 1 mg daily. She has not had ROS. She now wants to know when she can stopped the Prednisone. She continues with the occasional pain to the shoulders, the lateral left hip and some tenderness to the lower legs. She says these pains are not particularly bothersome. She occasionally takes some Advil for them with some benefit. [facility] Medical History (Updated 05/03/23 @ 19:38 by Yamilka Flores ACETYLENE CUTTER-) Pain of both shoulder joints Impaired fasting glucose Goiter Dyslipidemia Hyperparathyroidism Vitamin D deficiency Primary hyperparathyroidism Osteopenia of femoral neck Essential hypertension Polymyalgia rheumatica Surgical History History of removal of cyst History of colonoscopy Family History Father HTN (hypertension) High cholesterol Dementia Mother Pneumonia Maternal Grandfather Unknown family medical history Maternal Grandmother Pneumonia Paternal Grandfather Unknown family medical history Paternal Grandmother Unknown family medical history Social History Household Members: None Housing: House Are you a primary continuum of care manager to a significant other at home: No Do you presently have visiting nurse or other home services: No Alcohol intake: current Alcohol intake frequency: a few times a month Alcohol type: wine Patient Tobacco Use Status: Former Tobacco user e-Cigarette/Vaping Use: Never Used service: No Current occupational status: retired Cognitive needs: No Hearing needs: No Vision needs: No Review of Systems Const All systems reviewed & are unremarkable except as noted in HPI and below Physical Exam Vital Signs: Last Vital Signs Pulse 81 06/19/23 09:47 BP 130/76 06/19/23 09:47 Pulse Ox 96 06/19/23 09:47 Oxygen Delivery Method Room Air 06/19/23 09:47 BMI result Body Mass Index 33.0 Vital signs reviewed. Constitutional: Non-toxic appearing. No acute distress. Well-developed and well-nourished. HEENT: Normocephalic and atraumatic. External auditory canals without erythema or edema bilaterally. Moist mucous membranes. Skin: Warm and dry. No rashes or lesions noted. Neck: Full and painless range of motion. No cervical lymphadenopathy. Cardio: Regular rate and rhythm. No murmurs, gallops, or rubs. No lower extremity edema. No JVD. Pulmonary: No respiratory distress. No accessory muscle usage. Musculoskeletal: Normal range of motion in joints throughout the body. No deformity or other signs of injury. Neuro: Alert and oriented x4. Cranial nerves 2-12 grossly intact. No focal deficits appreciated. Results Reviewed Results Reviewed: Laboratory Tests 05/27/23 09:42 WBC 6.4 RBC 4.30 Hgb 14.2 Hct 42.0 ESR 6 AST 23 ALT 42 H Assessment & Plan Assessment & Plan (1) Long-term use of immunosuppressant medication: Code(s): Z79.60 - custodial (current) use of unspecified immunomodulators and immunosuppressants Category: Medical (2) Elevated transaminase level: Code(s): R74.01 - Elevation of levels of liver transaminase levels Category: Medical (3) Seronegative rheumatoid arthritis: Code(s): M06.00 - Rheumatoid arthritis without rheumatoid factor, unspecified site Category: Medical (4) Pain of both shoulder joints: Code(s): M25.511 - Pain in right shoulder; M25.512 - Pain in left shoulder Category: Medical Plan #RA/Shoulder Pain: She will continue to stopped the methotrexate. The patient did not register any worsening of her symptoms with that. Her ESR and CRP remains at goal. She is only on 1 mg of prednisone so we will stopp the Prednisone and reassess. Her initial diagnosis was PMR and I think that is largely resolved. I encouraged patient to pay attention to changes in her symptoms/worsening without medications #Analog Design Engineer Use/Elevated Transaminase: The ALT continue to be stable. We will see if this resolves with MTX stopped I spent 25 minutes reviewing history, evaluating patient, and documenting Follow-up in 6 months
[2023-06-19 09:47] VITALS: BP 130/76; PULSE 81; O2SAT 96; BMI 33.0
== END 2023-06-19 10:21 | disposition home or self-care (01) ==
PROVIDERS: PCP Internal Medicine; Visit Provider Nurse Practitioner Family
DX: Z79.60 Long term (current) use of unspecified immunomodulators and immunosuppressants (principal); R74.01 Elevation of levels of liver transaminase levels; M06.00 Rheumatoid arthritis without rheumatoid factor, unspecified site; M25.511 Pain in right shoulder; M25.512 Pain in left shoulder
CPT/HCPCS: 99213

== ENCOUNTER → 2023-06-19 09:42 | Outpatient (BNVA) | payer MEDICARE, SELFPAY | PROVIDERS: PCP Internal Medicine; Visit Provider Nurse Practitioner Family | DX: M06.00 Rheumatoid arthritis without rheumatoid factor, unspecified site (principal); M35.3 Polymyalgia rheumatica; M85.88 Other specified disorders of bone density and structure, other site; M25.511 Pain in right shoulder; M25.512 Pain in left shoulder; R74.01 Elevation of levels of liver transaminase levels; E55.9 Vitamin D deficiency, unspecified; Z79.52 Long term (current) use of systemic steroids; Z79.60 Long term (current) use of unspecified immunomodulators and immunosuppressants | CPT/HCPCS: 99212 ==

== ENCOUNTER 2023-12-09 13:38 | Outpatient (AMB) | payer MEDICARE, SELFPAY ==
--- NOTE | 2023-12-09 13:40 | MHC.OFFVIS ---
Vital Signs 12/09/23 13:49 Height 5 ft 2 in Weight 181 lb 7.047 oz BMI 33.2 BP 124/68 Blood Pressure Location Rt brachial Position Sitting Pulse 81 Pulse Source Pulse Oximeter Pulse Oximetry (%) 97 Oxygen Delivery Method Room Air Intake Visit Reasons: PMR remission/LM Intake Note: Patient presents for PMR remission. Allergies nicotine [NICOTINE] Allergy (Intermediate, Verified 06/19/23 09:48) NICOTINE PATCH-BLISTERS, skin irritation/blisters, skin irritation/blisters amoxicillin [From AUGMENTIN] Adverse Reaction (Intermediate, Verified 06/19/23 09:48) VOMITING/DIARRHEA Latex Allergy (Mild, Uncoded 06/19/23 09:48) Rash Statins Support Adverse Reaction (Intermediate, Uncoded 06/19/23 09:48) muscle cramps Medication List - Last Reconciled 12/09/23 by Shalom Callaway MD acetaminophen 650 mg PO BID PRN amlodipine 5 mg PO DAILY cholecalciferol (vitamin D3) 25 mcg PO DAILY pantoprazole 40 mg PO DAILY prednisone 5 mg PO DAILY HPI Comments Details: This is a 68-year-old female with PMR/seronegative RA who presents for follow-up. Patient could not tolerate methotrexate due to significant GI upset and bloating. She discontinued methotrexate back in June of 2023. She also discontinued her prednisone 1 mg daily. 6-8 weeks later she started having referring joint pain and stiffness especially of her shoulders, hips, neck buttocks. She tried taking Tylenol Arthritis 3 times a day without much improvement. She restarted prednisone 5 mg daily 2 months ago with significant improvement. She is doing well today with no joint pain swelling or stiffness [facility] Medical History Pain of both shoulder joints Impaired fasting glucose Goiter Dyslipidemia Hyperparathyroidism Vitamin D deficiency Primary hyperparathyroidism Osteopenia of femoral neck Essential hypertension Polymyalgia rheumatica Surgical History History of removal of cyst History of colonoscopy Family History Father HTN (hypertension) High cholesterol Dementia Mother Pneumonia Maternal Grandfather Unknown family medical history Maternal Grandmother Pneumonia Paternal Grandfather Unknown family medical history Paternal Grandmother Unknown family medical history Social History Household Members: None Housing: House Are you a primary acute care surgeon to a significant other at home: No Do you presently have visiting nurse or other home services: No Alcohol intake: current Alcohol intake frequency: a few times a month Alcohol type: wine Patient Tobacco Use Status: Former Tobacco user e-Cigarette/Vaping Use: Never Used service: No Current occupational status: retired Cognitive needs: No Hearing needs: No Vision needs: No Review of Systems Musc Denies arthralgias, Denies joint swelling and Denies stiffness Physical Exam Vital Signs: Last Vital Signs Pulse 81 12/09/23 13:49 BP 124/68 12/09/23 13:49 Pulse Ox 97 12/09/23 13:49 Oxygen Delivery Method Room Air 12/09/23 13:49 BMI result Body Mass Index 33.2 Const General: cooperative, healthy appearing and comfortable Nutritional Appearance: obese Orientation/consciousness: patient oriented x3 Limitations: no limitations HEENT Head: Yes normocephalic and Yes atraumatic Mouth: moist mucous membranes Resp Effort & Inspection: normal respiratory effort and able to speak in complete sentences Cardio Rate: regular rate Skin General skin exam: no rashes or lesions noted Neuro General: patient oriented x3 Extrem Other: Mild osteoarthritic changes of both hands with no active synovitis Some deformity of the right 3rd finger Normal range of motion of elbows and shoulders without pain No knee pain with flexion-extension bilaterally Negative straight leg raise test bilaterally No ankle swelling or tenderness Normal nailfold capillaroscopy Assessment & Plan Assessment & Plan (1) Polymyalgia rheumatica: Comment: Diagnosed summer 2017, on chronic prednisone since. Relapse of PMR after Prolia injection in December 2018-worsening symptoms as well as elevated inflammatory markers -Restarted on 10 mg prednisone daily tapered off April 2022. MRI of both hips 05/20/2019 showed marked and the slightest/tendinitis at both hips involving the abductor insertions, iliopsoas insertions, hamstring origins, and abductor origins. Restarted on prednisone June 2022 for what appears to be seronegative rheumatoid arthritis. MTX added in by Dr. Mota due to small joint synovitis. MTX discontinued by patient 06/2023 due to significant GI upset Code(s): M35.3 - Polymyalgia rheumatica Category: Medical Plan: This is a 68-year-old female with PMR/seronegative RA who presents for follow-up. She is doing well on prednisone 5 mg daily. Reduce prednisone to 4 mg daily and reduce by 1 mg per month Labs today and before next visit in 3 months (2) Osteopenia of femoral neck: Comment: Dr. Pack, received Reclast 10/2019,12/2020, 12/2021 previously had one benoit of Prolia 12/2018(stopped due to flare of PMR) Code(s): M85.859 - Other specified disorders of bone density and structure, unspecified thigh Category: Medical Plan: She stated that she had another DEXA scan in 2022. We will attempt to retrieve it Plan This is patient's 1st visit with me. I spent 36 minutes reviewing patient's chart, evaluating patient, ordering diagnostic workup, counseling patient and documenting in the chart Orders: Orders Comprehensive Met. Panel 2 Months M35.3 - Polymyalgia rheumatica Erythrocyte Sedimentation Rate 2 Months M35.3 - Polymyalgia rheumatica Complete Blood Count Auto Diff Today M35.3 - Polymyalgia rheumatica Comprehensive Met. Panel Today M35.3 - Polymyalgia rheumatica C Reactive Protein Today M35.3 - Polymyalgia rheumatica Hepatitis A,B,C Profile Today Z11.59 - Encounter for screening for other viral diseases Complete Blood Count Auto Diff 2 Months M35.3 - Polymyalgia rheumatica C Reactive Protein 2 Months M35.3 - Polymyalgia rheumatica Erythrocyte Sedimentation Rate Today M35.3 - Polymyalgia rheumatica T Spot TB Today Z11.7 - Encounter for testing for latent tuberculosis infection Medications: New prednisone Take 4 tabs daily for 1 month then remain on 3 tabs daily 210 tabs 0RF Discontinued prednisone Discontinued Reason: Doctor's Order 5 mg PO DAILY 30 tabs 1RF Coding Level of Care Code Est Pt Level 4 (63246) Complex EM visit Add On G2211 Diagnoses Polymyalgia rheumatica M35.3 Osteopenia of femoral neck M85.859
[2023-12-09 13:49] VITALS: BP 124/68; PULSE 81; O2SAT 97; BMI 33.2
== END 2023-12-09 14:13 | disposition home or self-care (01) ==
PROVIDERS: PCP Internal Medicine; Visit Provider Student in an Organized Health Care Education/Training Program
DX: M35.3 Polymyalgia rheumatica (principal); M85.859 Other specified disorders of bone density and structure, unspecified thigh
CPT/HCPCS: 99214; G2211

== ENCOUNTER → 2023-12-09 13:38 | Outpatient (BNVA) | payer MEDICARE, SELFPAY | PROVIDERS: PCP Internal Medicine; Visit Provider Student in an Organized Health Care Education/Training Program | DX: M35.3 Polymyalgia rheumatica (principal); M85.859 Other specified disorders of bone density and structure, unspecified thigh | CPT/HCPCS: 99212 ==

== ENCOUNTER 2023-12-10 09:29 | Outpatient (REF) | payer MEDICARE, SELFPAY ==
[2023-12-10 13:00] LABS: MANUAL DIFF FLAG NO
[2023-12-10 13:06] LABS: Basophils Percent Auto 0.3 % (0-2); Eosinophils Absolute Auto 0.1 X10*3/uL (0.0-0.4); Eosinophils Percent Auto 1.1 % (0-4); Hematocrit 42.7 % (37.0-47.0); Hemoglobin 14.3 g/dl (12.0-16.0); Imm Gran Abs Auto 0.03 X10*3/uL (0.00-0.03); Imm Gran Pct Auto 0.4 % (0.0-0.4); Lymphocytes Percent Auto 25.4 % (20-40); Mean Corpuscular HGB Conc 33.5 g/dl (31.0-35.0); Mean Corpuscular Hemoglobin 32.2 pg (27.0-33.0); Mean Corpuscular Volume 96.2 fL (80.0-98.0); Mean Platelet Volume 13.1 fL (9.4-12.3); Monocytes Absolute Auto 0.6 X10*3/uL (0.1-1.2); Monocytes Percent Auto 7.1 % (2-11); Neutrophils Absolute Auto 5.3 x10*3/uL (2.0-8.3); Neutrophils Percent Auto 65.7 % (45-73); Platelet Count 125 X10*3/uL (160-400); Red Blood Count 4.44 X10*6/uL (4.20-5.50); Red Cell Distribution Width 14.4 % (11.0-16.0)
[2023-12-10 13:14] LABS: Alanine Aminotransferase 60 U/L (0-31); Albumin Level 4.4 g/dL (3.5-5.0); Alkaline Phosphatase 72 U/L (39-117); Anion Gap 11 (12-20); Aspartate Amino Transferase 26 U/L (5-31); Bilirubin Total 0.6 mg/dL (0.0-1.0); Blood Urea Nitrogen 16 mg/dL (9-16); C Reactive Protein 0.35 mg/dL (< or = 0.50); Calcium 10.5 mg/dL (8.4-10.2); Carbon Dioxide 25 mmol/L (22-29); Chloride 107 mmol/L (96-108); Estimated Glomerular Filt Rate > 60; Glucose Random 105 mg/dL (60-115); Potassium 3.9 mmol/L (3.3-5.1); Sodium 139 mmol/L (135-145); Total Protein 6.7 g/dL (6.5-8.0)
[2023-12-10 13:41] LABS: Erythrocyte Sedimentation Rate 2 MM/HR (0-20)
[2023-12-11 08:37] LABS: HBc Num1 0.04 S/CO (0.00-0.79); HBsAGNum1 0.53 S/CO (0.00-0.99); Hepatitis A Antibody IgM 0.18 Index (0-0.79); Hepatitis B Core Antibody Nonreactive (Nonreactive); Hepatitis B Surface Antigen Negative (Negative); ~HepC Num1 0.78 S/CO (0.00-0.79); ~Hepatitis A Antibody IgM Nonreactive (Nonreactive); ~Hepatitis B Surface Antibody NONREACTIVE (Nonreactive); ~Hepatitis C Antibody Nonreactive (Nonreactive)
[2023-12-13 07:23] LABS: TS Negative Control Passed; TS Panel A 0; TS Panel B 0; TS Positive Control Passed; TSpotTB Negative (Negative)
== END 2023-12-10 09:30 | disposition home or self-care (01) ==
LOC: HO.HMGCLDS 09:29
PROVIDERS: PCP Internal Medicine; Visit Provider Student in an Organized Health Care Education/Training Program
DX: M35.3 Polymyalgia rheumatica (principal); Z11.59 Encounter for screening for other viral diseases; Z11.7 Encounter for testing for latent tuberculosis infection
CPT/HCPCS: 36415; 80053; 85025; 85652; 86140; 86481; 86704; 86706; 86709; 86803; 87340

== ENCOUNTER 2023-12-17 14:15 | Outpatient (AMB) | payer MEDICARE, SELFPAY ==
--- NOTE | 2023-12-17 14:18 | A.OFFPC_ITS ---
Vital Signs 12/17/23 14:19 Height 5 ft 2 in Weight 181 lb 2 oz BMI 33.1 BP 124/70 Blood Pressure Location Rt brachial Position Sitting Pulse 92 Pulse Source Pulse Oximeter Pulse Oximetry (%) 97 Oxygen Delivery Method Room Air Intake Visit Reasons: FollowUp Intake Note: Pt is here today for a follow up. Allergies nicotine [NICOTINE] Allergy (Intermediate, Verified 12/20/23 22:03) NICOTINE PATCH-BLISTERS, skin irritation/blisters, skin irritation/blisters amoxicillin [From AUGMENTIN] Adverse Reaction (Intermediate, Verified 12/20/23 22:03) VOMITING/DIARRHEA Latex Allergy (Mild, Uncoded 12/20/23 22:03) Rash Statins Support Adverse Reaction (Intermediate, Uncoded 12/20/23 22:03) muscle cramps Medication List - Last Reconciled 12/17/23 by Norma Pratt MD amlodipine 5 mg PO DAILY cholecalciferol (vitamin D3) 25 mcg PO DAILY pantoprazole 40 mg PO DAILY prednisone Take 4 tabs daily for 1 month then remain on 3 tabs daily Tobacco use date assessed: 12/17/23 Fall risk assessment: No Falls in past year Last assessed Fall Risk: 12/17/23 Dental Screening Dental Screen Date: 12/17/23 Did you have a dental visit in the last 12 months?: Yes Did you have a dental problem in the last 6 months where you did not have access to dental care?: No Was dental information given to patient?: Patient has dentist HPI FollowUp HPI Details 68-year-old lady with history of polymya lgia rheumatica, seronegative rheumatoid arthritis, history of osteoporosis, now with osteopenia in right femoral neck and right forearm as noted on last bone density done 09/2022 at [facility], here for follow-up on her hypertension hyperlipidemia. Seen by her back panel padder earlier this month, could not tolerate methotrexate due to significant GI upset and bloating. She discontinued methotrexate back in June of 2023. She also discontinued her prednisone 1 mg daily. 6-8 weeks later she started having referring joint pain and stiffness especially of her shoulders, hips, neck buttocks. She tried taking Tylenol Arthritis 3 times a day without much improvement. She restarted prednisone 5 mg daily 2 months ago with significant improvement. She is doing well today with no joint pain swelling or stiffness [facility] Medical History (Updated 12/20/23 @ 22:18 by Norma Pratt MD) Pain of both shoulder joints Impaired fasting glucose Goiter Dyslipidemia Hyperparathyroidism Vitamin D deficiency Primary hyperparathyroidism Osteopenia of femoral neck Essential hypertension Polymyalgia rheumatica Surgical History History of removal of cyst History of colonoscopy Family History Father HTN (hypertension) High cholesterol Dementia Mother Pneumonia Maternal Grandfather Unknown family medical history Maternal Grandmother Pneumonia Paternal Grandfather Unknown family medical history Paternal Grandmother Unknown family medical history Social History Household Members: None Housing: House Are you a primary childcare center administrator to a significant other at home: No Do you presently have visiting nurse or other home services: No Alcohol intake: current Alcohol intake frequency: a few times a month Alcohol type: wine Patient Tobacco Use Status: Former Tobacco user e-Cigarette/Vaping Use: Never Used service: No Current occupational status: retired Cognitive needs: No Hearing needs: No Vision needs: No Questionnaire PHQ-9 Over the last 2 weeks, how often have you been bothered by any of the following problems? Depression Screening Interpretation: Negative Depression Screening Done: Yes Source: Developed by Drs. Dwayne Jones, Ly Dale, Rayo Joseph and colleagues, with an educational salvatore from [employer]. Thrive Questionnaire Date Thrive assessed: 12/17/23 I am a: Patient What is your living situation today?: I have a steady place to live Within the past 12 months, did the food you bought not last and you didn't have the money to get more?: Sometimes True Within the past 12 months, did you worry whether your food would run out before you got money to buy more?: Sometimes True Do you have trouble paying for medicines?: No Do you have trouble getting transportation to medical appointments?: No Do you have trouble paying your heating and electricity bill?: No Do you have trouble taking care of your child, family member or friend?: No Do you have trouble with day-to-day activities such as bathing, preparing meals, shopping, managing finances, etc.?: No Are you currently unemployed and looking for a job?: No Are you interested in more education?: No Please select the resources that you would like help with: None Currently or been in a relationship where the following occur: No concerns reported THRIVE Score: 2 AUDIT C Alcohol Use Questionnaire (AUDIT-C) 1. How often do you have a drink containing alcohol?: Monthly or less 2. How many drinks containing alcohol do you have on a typical day when you are drinking?: 1 or 2 3. How often do you have six or more drinks on one occasion?: Never Total Score: 1 Score Reviewed/Action Taken: Yes HARRY-7 AMB Questionnaire HARRY-7 Date HARRY - 7 assessed: 12/17/23 Feeling nervous, anxious, or on edge: 0 = Not at all Not being able to stop or control worryin = Not at all Worrying too much about different things: 0 = Not at all Trouble relaxin = Not at all Being so restless that it is hard to sit still: 0 = Not at all Becoming easily annoyed or irritable: 0 = Not at all Feeling afraid as if something awful might happen: 0 = Not at all Total HARRY-7 score (0-4 normal; 5-9 mild; 10-14 moderate; 15-21 severe): 0 Source: Developed by Drs. Dwayne Jones, Ly Dale, Rayo Joseph and colleagues, with an educational salvatore from [employer]. HARRY-7 Assessment Billing HARRY-7 Assessment Tool: HARRY-7 Assessment 08433 Review of Systems Const Denies fatigue, Denies fever(s), Denies headache(s), Denies poor appetite and Denies weakness Eyes Denies change in vision ENT Denies dizziness, Denies headache(s), Denies nasal congestion, Denies nasal discharge and Denies sore throat Card Denies chest pain, Denies lightheadedness, Denies palpitations and Denies dyspnea Resp Denies chest congestion, Denies cough, Denies dyspnea and Denies wheezing GI Denies abdominal pain, Denies change in bowel habits and Denies heartburn Denies hematuria, Denies urinary frequency, Denies dysuria and Denies urinary urgency Musc Denies arthralgias, Denies joint swelling, Denies muscle weakness and Denies stiffness Skin/Breast Denies lesions and Denies rash Neuro Denies dizziness, Denies headache(s) and Denies weakness Psych Reports no additional complaints Endo Denies fatigue, Denies polydipsia, Denies polyuria and Denies palpitations Edgar/Lymph Reports easy bruising Aller/Immun Denies seasonal rhinorrhea and Denies wheezing Physical exam (Primary Care) Vital Signs: Last Vital Signs Pulse 92 12/17/23 14:19 BP 124/70 12/17/23 14:19 Pulse Ox 97 12/17/23 14:19 Oxygen Delivery Method Room Air 12/17/23 14:19 BMI result Body Mass Index 33.1 Tobacco/Smoking Status: Tobacco use Status Tobacco use date assessed 12/17/23 12/17/23 14:25 Patient Tobacco Use Status Former Tobacco user 12/17/23 14:25 e-Cigarette/Vaping Use Never Used 12/17/23 14:25 Depression Screening Interpretation: Negative Thrive Assessment: Date of Thrive Assessment Date Thrive assessed 12/17/23 12/17/23 14:25 Currently or been in a relationship where the following occur: No concerns reported Const General: comfortable, no acute distress and alert Orientation/consciousness: patient oriented x3 HENMT Ears: external ears normal, TM's normal bilaterally and EAC's normal General nose exam: Normal external nose present Mouth: Normal oral and palatal mucosa present, oropharynx normal and moist mucous membranes Eyes General: appearance normal, both eyes and all related structures Conjunctivae: conjunctivae normal Sclerae: sclerae normal Pupils: Equal, round and reactive pupils present EOM: EOMs intact bilaterally Neck Neck: Yes full ROM, Yes no lymphadenopathy and Yes supple Resp Effort & Inspection: normal respiratory effort and able to speak in complete sentences Auscultation: clear to auscultation bilaterally Cardio Rate: regular rate Rhythm: regular rhythm Heart sounds: S1 normal heart sound present and S2 normal heart sound present GI Palpation (GI): Soft to palpation, nontender and no masses Auscultation: normal bowel sounds Back/Spine/Pelvis Back: No back tenderness Skin General skin exam: no rashes or lesions noted Neuro General: patient oriented x3, gait normal, tone normal, moves all extremities, Normal light touch and pain sensation and no focal motor deficits Cranial nerves: Yes CN's II-XII intact bilaterally and Yes Equal, round and reactive pupils present Cognition (Neuro): normal cognition Extrem General: Yes full ROM, Yes no joint enlargement, Yes no clubbing, cyanosis or edema and Yes no calf tenderness Psych Appearance: grossly normal and well kempt Mental Status: mental status grossly normal Speech and movement: Normal speech and movement present Affect: normal affect Attitude: cooperative Thought process: Normal thought process present Thought content: Normal thought content present Results Reviewed Results Reviewed: Name: Bijal Mon Age/Sex: 68/F : 1955 Unit#: [id number] Attend Dr: Shalom Callaway MD Re12/10/23 Status: DEP REF Location: [facility] Disch: SPEC : [id number] KALLIE: 12/10/23 STATUS: COMP REQ : [id number] RECD: 12/10/23-[address]: Shalom Callwaay MD COMP: 12/10/23 ENTERED: 12/10/[address]: Norma Pratt MD ORDERED: CBC Auto Diff Test Result Flag Reference WBC 8.0 4.8-10.8 X10*3/uL RBC 4.44 4.20-5.50 X10*6/uL HGB 14.3 12.0-16.0 g/dl HCT 42.7 37.0-47.0 % MCV 96.2 80.0-98.0 fL MCH 32.2 27.0-33.0 pg MCHC 33.5 31.0-35.0 g/dl RDW 14.4 11.0-16.0 % PLT 125 L 160-400 X10*3/uL MPV 13.1 H 9.4-12.3 fL Neut Pct Auto 65.7 45-73 % ImGran Pct Auto 0.4 0.0-0.4 % Lymp Pct Auto 25.4 20-40 % Hyde Pct Auto 7.1 2-11 % Eos Pct Auto 1.1 0-4 % Baso Pct Auto 0.3 0-2 % NRBC Pct Auto 0.0 0.0-0.2 /100WBC ANC Neut Abs # 5.3 2.0-8.3 x10*3/uL ImGran Abs Auto 0.03 0.00-0.03 X10*3/uL Lymph Abs Auto 2.0 1.2-4.9 X10*3/uL Hyde Abs Auto 0.6 0.1-1.2 X10*3/uL Eos Abs Auto 0.1 0.0-0.4 X10*3/uL Baso Abs Auto 0.0 0.0-0.2 X10*3/uL NRBC Abs Auto 0.000 0.0-0.012 X10*3/uL Name: Bijal Mon Age/Sex: 68/F : 1955 Unit#: [id number] Attend Dr: Shalom Callaway MD Re12/10/23 Status: DEP REF Location: [facility] Disch: SPEC : [id number] KALLIE: 12/10/23 STATUS: COMP REQ : [id number] RECD: 12/10/[address]: Shalom Callaway MD COMP: 12/10/23 ENTERED: 12/10/[address]: Norma Pratt MD ORDERED: CMP, C Reactive Prot Test Result Flag Reference Sodium 139 135-145 mmol/L Potassium 3.9 3.3-5.1 mmol/L CL 107 96-108 mmol/L CO2 25 22-29 mmol/L Gap 11 L 12-20 BUN 16 9-16 mg/dL Creat 0.83 0.5-1.4 mg/dL EGFR > 60 NOTE: For -[place] individuals, multiply the result by 1.210. Chronic Kidney Disease: Estimated GFR < 60 mL/min/1.73m2 Severe Kidney Disease: Estimated GFR < 15 mL/min/1.73m2 Glucose, Random 105 60-115 mg/dL CA 10.5 H 8.4-10.2 mg/dL Total Bili 0.6 0.0-1.0 mg/dL AST (GOT) 26 5-31 U/L ALT (GPT) 60 H 0-31 U/L CRP 0.35 < or = 0.50 mg/dL Protein, Total 6.7 6.5-8.0 g/dL Alb 4.4 3.5-5.0 g/dL Alk Phos 72 39-117 U/L Coding Level of Care Code Est Pt Level 4 (56002) Complex EM visit Add On G2211 Diagnoses Essential hypertension I10 Dyslipidemia E78.5 Osteopenia of neck of right femur M85.851 Laterality: right Polymyalgia rheumatica M35.3 Thrombocytopenia D69.6 Additional Codes HARRY-7 Assessment Billing - HARRY-7 Assessment Tool: HARRY-7 Assessment 78483 ([id number]) Assessment & Plan Assessment & Plan (1) Essential hypertension: Code(s): I10 - Essential (primary) hypertension Category: Medical Plan: Blood pressure at goal of less than 130/80. Continue amlodipine 5 mg daily. Reinforced importance of following a low sodium diet, getting regular exercise, and lowering stress levels. (2) Dyslipidemia: Code(s): E78.5 - Hyperlipidemia, unspecified Category: Medical Plan: Repeat fasting lipid panel ordered, pending with low-cholesterol diet and regular exercise (3) Osteopenia of femoral neck: Comment: Dr. Pack, received Reclast 10/2019,12/2020, 12/2021 previously had one benoit of Prolia 12/2018(stopped due to flare of PMR) Code(s): M85.859 - Other specified disorders of bone density and structure, unspecified thigh Category: Medical Qualifiers: Laterality: right Qualified Code(s): M85.851 - Other specified disorders of bone density and structure, right thigh Plan: has history of low bone mass with chronic treatment for PMR with prednisone and methotrexate. She received 1 dose of Prolia and 2 doses of Reclast. Secondary workup was negative. NTX remains suppressed. Evaluated by the Dr Ochoa earlier this year and reviewed bone density scan from 2022 which showed presence now of osteopenia in right femoral neck and right forearm. There is no need for pharmacologic treatment at this point. Patient has been advised to get 1200 mg of calcium in her diet, and repeat her DEXA bone density in 2 years time. Recommended that if her bone density declines to osteoporotic range, either alendronate or another does of intravenous Reclast can be given (4) Polymyalgia rheumatica: Comment: Diagnosed summer 2017, on chronic prednisone since. Relapse of PMR after Prolia injection in December 2018-worsening symptoms as well as elevated inflammatory markers -Restarted on 10 mg prednisone daily tapered off April 2022. MRI of both hips 05/20/2019 showed marked and the slightest/tendinitis at both hips involving the abductor insertions, iliopsoas insertions, hamstring origins, and abductor origins. Restarted on prednisone June 2022 for what appears to be seronegative rheumatoid arthritis. MTX added in by Dr. Mota due to small joint synovitis. MTX discontinued by patient 06/2023 due to significant GI upset Code(s): M35.3 - Polymyalgia rheumatica Category: Medical Plan: Followed by rheumatology clinic, currently feeling better on prednisone 5 mg daily (5) Thrombocytopenia: Code(s): D69.6 - Thrombocytopenia, unspecified Category: Medical Plan: Repeat CBC ordered Orders: Orders Alanine Aminotransferase Today D69.6 - Thrombocytopenia, unspecified, E55.9 - Vitamin D deficiency, unspecified, E78.5 - Hyperlipidemia, unspecified, E83.52 - Hypercalcemia, R74.01 - Elevation of levels of liver transaminase levels Vitamin D 25-OH Total Today D69.6 - Thrombocytopenia, unspecified, E55.9 - Vitamin D deficiency, unspecified, E78.5 - Hyperlipidemia, unspecified, E83.52 - Hypercalcemia, R74.01 - Elevation of levels of liver transaminase levels Lipid Panel Today D69.6 - Thrombocytopenia, unspecified, E55.9 - Vitamin D deficiency, unspecified, E78.5 - Hyperlipidemia, unspecified, E83.52 - Hypercalcemia, R74.01 - Elevation of levels of liver transaminase levels Complete Blood Count Auto Diff Today D69.6 - Thrombocytopenia, unspecified, E55.9 - Vitamin D deficiency, unspecified, E78.5 - Hyperlipidemia, unspecified, E83.52 - Hypercalcemia, R74.01 - Elevation of levels of liver transaminase levels Aspartate Amino Transferase Today D69.6 - Thrombocytopenia, unspecified, E55.9 - Vitamin D deficiency, unspecified, E78.5 - Hyperlipidemia, unspecified, E83.52 - Hypercalcemia, R74.01 - Elevation of levels of liver transaminase levels Calcium, Ionized Today D69.6 - Thrombocytopenia, unspecified, E55.9 - Vitamin D deficiency, unspecified, E78.5 - Hyperlipidemia, unspecified, E83.52 - Hypercalcemia, R74.01 - Elevation of levels of liver transaminase levels
[2023-12-17 14:19] VITALS: BP 124/70; PULSE 92; O2SAT 97; BMI 33.1
== END 2023-12-17 15:08 | disposition home or self-care (01) ==
PROVIDERS: PCP Internal Medicine; Visit Provider Internal Medicine
DX: I10 Essential (primary) hypertension (principal); E78.5 Hyperlipidemia, unspecified; M35.3 Polymyalgia rheumatica; D69.6 Thrombocytopenia, unspecified; M85.851 Other specified disorders of bone density and structure, right thigh

== ENCOUNTER → 2023-12-17 14:15 | Outpatient (BNVA) | payer MEDICARE, SELFPAY | PROVIDERS: PCP Internal Medicine; Visit Provider Internal Medicine | DX: I10 Essential (primary) hypertension (principal); E78.5 Hyperlipidemia, unspecified; M85.851 Other specified disorders of bone density and structure, right thigh; M35.3 Polymyalgia rheumatica; D69.6 Thrombocytopenia, unspecified | CPT/HCPCS: 96127; 99212 ==

== ENCOUNTER 2024-02-16 09:43 | Outpatient (REF) | payer MEDICARE, SELFPAY ==
[2024-02-16 13:24] LABS: Basophils Percent Auto 0.4 % (0-2); Eosinophils Absolute Auto 0.1 X10*3/uL (0.0-0.4); Eosinophils Percent Auto 1.6 % (0-4); Hematocrit 41.3 % (37.0-47.0); Hemoglobin 14.1 g/dl (12.0-16.0); Imm Gran Abs Auto 0.05 X10*3/uL (0.00-0.03); Imm Gran Pct Auto 0.6 % (0.0-0.4); Lymphocytes Absolute Auto 1.6 X10*3/uL (1.2-4.9); Lymphocytes Percent Auto 19.2 % (20-40); MANUAL DIFF FLAG SCAN; Mean Corpuscular HGB Conc 34.1 g/dl (31.0-35.0); Mean Corpuscular Hemoglobin 32.3 pg (27.0-33.0); Mean Corpuscular Volume 94.5 fL (80.0-98.0); Monocytes Absolute Auto 0.6 X10*3/uL (0.1-1.2); Monocytes Percent Auto 7.6 % (2-11); Neutrophils Absolute Auto 5.9 x10*3/uL (2.0-8.3); Neutrophils Percent Auto 70.6 % (45-73); PLT CLUMP 1; Red Blood Count 4.37 X10*6/uL (4.20-5.50); Red Cell Distribution Width 14.4 % (11.0-16.0); SCAN SMEAR FLAG 1
[2024-02-16 13:35] LABS: Alanine Aminotransferase 59 U/L (0-31); Albumin Level 4.2 g/dL (3.5-5.0); Alkaline Phosphatase 71 U/L (39-117); Anion Gap 13 (12-20); Aspartate Amino Transferase 29 U/L (5-31); Bilirubin Total 0.4 mg/dL (0.0-1.0); Blood Urea Nitrogen 13 mg/dL (9-16); C Reactive Protein 0.41 mg/dL (< or = 0.50); Calcium 10.5 mg/dL (8.4-10.2); Carbon Dioxide 23 mmol/L (22-29); Chloride 107 mmol/L (96-108); Estimated Glomerular Filt Rate > 60; Glucose Random 106 mg/dL (60-115); Potassium 4.1 mmol/L (3.3-5.1); Sodium 139 mmol/L (135-145); Total Protein 6.6 g/dL (6.5-8.0)
[2024-02-16 13:53] LABS: Mean Platelet Volume 12.8 fL (9.4-12.3); Platelet Count 121 X10*3/uL (160-400); SLIDE REVIEW VERIFIED; White Blood Count 8.3 X10*3/uL (4.8-10.8)
[2024-02-16 14:08] LABS: Erythrocyte Sedimentation Rate 2 MM/HR (0-20)
== END 2024-02-16 09:44 | disposition home or self-care (01) ==
LOC: HO.HMGCLDS 09:43
PROVIDERS: PCP Internal Medicine; Visit Provider Student in an Organized Health Care Education/Training Program
DX: M35.3 Polymyalgia rheumatica (principal)
CPT/HCPCS: 36415; 80053; 85025; 85652; 86140

== ENCOUNTER 2024-02-22 11:27 | Outpatient (AMB) | payer MEDICARE, SELFPAY ==
--- NOTE | 2024-02-22 11:45 | MHC.OFFVIS ---
Vital Signs 02/22/24 11:48 Height 5 ft 2 in Weight 184 lb 8.43 oz BMI 33.7 BP 122/74 Blood Pressure Location Lt brachial Position Sitting Respiration 16 Pulse 83 Pulse Source Pulse Oximeter Pulse Oximetry (%) 96 Oxygen Delivery Method Room Air Intake Visit Reasons: PMR Intake Note: Patient presents for PMR. Allergies nicotine [NICOTINE] Allergy (Intermediate, Verified 02/22/24 11:48) NICOTINE PATCH-BLISTERS, skin irritation/blisters, skin irritation/blisters amoxicillin [From AUGMENTIN] Adverse Reaction (Intermediate, Verified 02/22/24 11:48) VOMITING/DIARRHEA Latex Allergy (Mild, Uncoded 12/20/23 22:03) Rash Statins Support Adverse Reaction (Intermediate, Uncoded 12/20/23 22:03) muscle cramps Medication List - Last Reconciled 02/22/24 by Shalom Callaway MD amlodipine 5 mg PO DAILY cholecalciferol (vitamin D3) 25 mcg PO DAILY prednisone 3 mg (3 x 1 mg) PO DAILY HPI Comments Details: This is a 68-year-old female with PMR/seronegative RA who presents for follow-up. On prednisone 3 mg daily. Has been tapering prednisone by 1 mg per month. Has been on 3 mg for approximately 1 month. She states that she continues to have intermittent bilateral shoulder pain and stiffness, usually with activity. Denies any recent illnesses or fevers. [facility] Medical History Pain of both shoulder joints Impaired fasting glucose Goiter Dyslipidemia Hyperparathyroidism Vitamin D deficiency Primary hyperparathyroidism Osteopenia of femoral neck Essential hypertension Polymyalgia rheumatica Surgical History History of removal of cyst History of colonoscopy Family History Father HTN (hypertension) High cholesterol Dementia Mother Pneumonia Maternal Grandfather Unknown family medical history Maternal Grandmother Pneumonia Paternal Grandfather Unknown family medical history Paternal Grandmother Unknown family medical history Social History Household Members: None Housing: House Are you a primary infant childcare provider to a significant other at home: No Do you presently have visiting nurse or other home services: No Alcohol intake: current Alcohol intake frequency: a few times a month Alcohol type: wine Patient Tobacco Use Status: Former Tobacco user e-Cigarette/Vaping Use: Never Used service: No Current occupational status: retired Cognitive needs: No Hearing needs: No Vision needs: No Review of Systems Musc Reports arthralgias, Denies joint swelling and Reports stiffness Physical Exam Vital Signs: Last Vital Signs Pulse 83 02/22/24 11:48 Resp 16 02/22/24 11:48 BP 122/74 02/22/24 11:48 Pulse Ox 96 02/22/24 11:48 Oxygen Delivery Method Room Air 02/22/24 11:48 BMI result Body Mass Index 33.7 Const General: cooperative, healthy appearing and comfortable Nutritional Appearance: obese Orientation/consciousness: patient oriented x3 Limitations: no limitations HEENT Head: Yes normocephalic and Yes atraumatic Mouth: moist mucous membranes Resp Effort & Inspection: normal respiratory effort and able to speak in complete sentences Cardio Rate: regular rate Skin General skin exam: no rashes or lesions noted Neuro General: patient oriented x3 Extrem Other: Mild osteoarthritic changes of both hands with no active synovitis Some deformity of the right 3rd finger Normal range of motion of elbows and shoulders without pain Slightly positive empty can test bilaterally No knee pain with flexion-extension bilaterally No trochanteric bursa area tenderness bilaterally Negative straight leg raise test bilaterally No ankle swelling or tenderness Normal nailfold capillaroscopy Assessment & Plan Assessment & Plan (1) Polymyalgia rheumatica: Comment: Diagnosed summer 2017, on chronic prednisone since. Relapse of PMR after Prolia injection in December 2018-worsening symptoms as well as elevated inflammatory markers -Restarted on 10 mg prednisone daily tapered off April 2022. MRI of both hips 05/20/2019 showed marked and the slightest/tendinitis at both hips involving the abductor insertions, iliopsoas insertions, hamstring origins, and abductor origins. Restarted on prednisone June 2022 for what appears to be seronegative rheumatoid arthritis. MTX added in by Dr. Mota due to small joint synovitis. MTX discontinued by patient 06/2023 due to significant GI upset PDN continued Code(s): M35.3 - Polymyalgia rheumatica Category: Medical Plan: This is a 68-year-old female with PMR/seronegative RA who presents for follow-up. She is doing well on prednisone 3 mg daily. Inflammatory markers are normal Reduce prednisone by 1 mg per month. Labs before next visit in 3 months (2) Osteopenia of femoral neck: Comment: Dr. Pack, received Reclast 10/2019,12/2020, 12/2021 previously had one benoit of Prolia 12/2018(stopped due to flare of PMR) Code(s): M85.859 - Other specified disorders of bone density and structure, unspecified thigh Category: Medical Qualifiers: Laterality: right Qualified Code(s): M85.851 - Other specified disorders of bone density and structure, right thigh Plan: Evaluated by Dr. Ochoa 01/2023, at that time recommendation was for patient to stay on vitamin-D and calcium, repeat DEXA in 01/2023 (3) Tendinitis of both rotator cuffs: Code(s): M75.81 - Other shoulder lesions, right shoulder; M75.82 - Other shoulder lesions, left shoulder Category: Medical Plan: Referred to PT Plan I spent 25 minutes reviewing patient's chart, evaluating patient, ordering diagnostic workup, counseling patient and documenting in the chart Orders: Orders Complete Blood Count Auto Diff 3 Months M06.00 - Rheumatoid arthritis without rheumatoid factor, unspecified site, Z79.60 - termite treater helper (current) use of unspecified immunomodulators and immunosuppressants C Reactive Protein 3 Months M06.00 - Rheumatoid arthritis without rheumatoid factor, unspecified site, Z79.60 - USP (current) use of unspecified immunomodulators and immunosuppressants Erythrocyte Sedimentation Rate 3 Months M06.00 - Rheumatoid arthritis without rheumatoid factor, unspecified site, Z79.60 - USP (current) use of unspecified immunomodulators and immunosuppressants PT Evaluation and Treatment Today M75.81 - Other shoulder lesions, right shoulder, M75.82 - Other shoulder lesions, left shoulder Comprehensive Met. Panel 3 Months M06.00 - Rheumatoid arthritis without rheumatoid factor, unspecified site, Z79.60 - termite treater helper (current) use of unspecified immunomodulators and immunosuppressants Medications: Discontinued pantoprazole Take 1 hour a.c. Discontinued Reason: Doctor's Order 40 mg PO DAILY 90 tabs 1RF Coding Level of Care Code Est Pt Level 4 (85093) Diagnoses Polymyalgia rheumatica M35.3 Osteopenia of neck of right femur M85.851 Laterality: right Tendinitis of both rotator cuffs M75.81; M75.82
[2024-02-22 11:48] VITALS: BP 122/74; PULSE 83; RESP 16; O2SAT 96; BMI 33.7
== END 2024-02-22 12:13 | disposition home or self-care (01) ==
PROVIDERS: PCP Internal Medicine; Visit Provider Student in an Organized Health Care Education/Training Program
DX: M35.3 Polymyalgia rheumatica (principal); M85.851 Other specified disorders of bone density and structure, right thigh; M75.81 Other shoulder lesions, right shoulder; M75.82 Other shoulder lesions, left shoulder
CPT/HCPCS: 99214

== ENCOUNTER → 2024-02-22 11:27 | Outpatient (BNVA) | payer MEDICARE, SELFPAY | PROVIDERS: PCP Internal Medicine; Visit Provider Student in an Organized Health Care Education/Training Program | DX: M35.3 Polymyalgia rheumatica (principal); M85.851 Other specified disorders of bone density and structure, right thigh; M75.81 Other shoulder lesions, right shoulder; M75.82 Other shoulder lesions, left shoulder | CPT/HCPCS: 99212 ==

== ENCOUNTER 2024-05-02 13:20 | Outpatient (AMB) | payer MEDICARE, SELFPAY ==
[2024-05-02 14:06] VITALS: BP 128/80; PULSE 92; RESP 15; TEMP 36.5; O2SAT 92; BMI 34.0
--- NOTE | 2024-05-02 14:06 | MHC.PC.OV ---
Vital Signs 05/02/24 14:06 Height 5 ft 2 in Weight 186 lb BMI 34.0 BP 128/80 Blood Pressure Location Lt brachial Position Sitting Respiration 15 Pulse 92 Pulse Source Pulse Oximeter Temp 97.7 F Temp Source Oral Pulse Oximetry (%) 92 Oxygen Delivery Method Room Air Intake Visit Reasons: PE Intake Note: Pt is here today for her PE: Last mammogram 10/08/23, bone density scan 08/22/20, colonoscopy 03/13/17 Allergies nicotine [NICOTINE] Allergy (Intermediate, Verified 05/02/24 14:19) NICOTINE PATCH-BLISTERS, skin irritation/blisters, skin irritation/blisters amoxicillin [From AUGMENTIN] Adverse Reaction (Intermediate, Verified 05/02/24 14:19) VOMITING/DIARRHEA Latex Allergy (Mild, Uncoded 05/02/24 14:19) Rash Statins Support Adverse Reaction (Intermediate, Uncoded 05/02/24 14:19) muscle cramps Medication List - Last Reconciled 05/02/24 by Norma Pratt MD amlodipine 5 mg PO DAILY cholecalciferol (vitamin D3) 25 mcg PO DAILY prednisone 1 mg PO DAILY Tobacco use date assessed: 05/02/24 Fall risk assessment: No Falls in past year Last assessed Fall Risk: 05/02/24 Dental Screening Dental Screen Date: 05/02/24 Did you have a dental visit in the last 12 months?: Yes Did you have a dental problem in the last 6 months where you did not have access to dental care?: No Was dental information given to patient?: Patient has dentist HPI PE HPI Details 68 year old lady with history of polymyalgia rheumatica, seronegative rheumatoid arthritis, history of osteoporosis, now with osteopenia in right femoral neck and right forearm as noted on last bone density done 09/2022 at [facility], here for her physical exam. She is currently on prednisone low dose as she has not been able to tolerate methotrexate in the past due to severe GI upset. She is up-to-date with her screening mammogram, done last October 2023 benign findings, and is not due for screening colonoscopy until 2027. She has hyperparathyroidism, and now has osteopenia in her right femoral neck and right forearm as seen on bone density scan done in 2022.. He has been seen by Dr. Ochoa in 2022 , received 1 dose of Prolia and 2 doses of Reclast. Secondary workup was negative. NTX remains suppressed. At that point , he did not recommend any pharmacologic treatment, and advised to continue with 1200 mg of calcium in her diet , and repeat another bone density scan, which is now due this year. Recommend to either start alendronate or another dose of IV Reclast if bone density declines. [facility] Medical History Osteopenia of multiple sites Pain of both shoulder joints Impaired fasting glucose Goiter Dyslipidemia Hyperparathyroidism Vitamin D deficiency Primary hyperparathyroidism Osteopenia of femoral neck Essential hypertension Polymyalgia rheumatica Surgical History History of removal of cyst History of colonoscopy Family History Father HTN (hypertension) High cholesterol Dementia Mother Pneumonia Maternal Grandfather Unknown family medical history Maternal Grandmother Pneumonia Paternal Grandfather Unknown family medical history Paternal Grandmother Unknown family medical history Social History Household Members: None Housing: House Are you a primary intensive care unit registered nurse to a significant other at home: No Do you presently have visiting nurse or other home services: No Alcohol intake: current Alcohol intake frequency: a few times a month Alcohol type: wine Patient Tobacco Use Status: Former Tobacco user e-Cigarette/Vaping Use: Never Used service: No Current occupational status: retired Cognitive needs: No Hearing needs: No Vision needs: No Questionnaire PHQ-9 Over the last 2 weeks, how often have you been bothered by any of the following problems? 1. Little interest or pleasure in doing things: not at all 2. Feeling down, depressed, or hopeless: not at all 3. Trouble falling or staying asleep, or sleeping too much: not at all 4. Feeling tired or having little energy: not at all 5. Poor appetite or overeating: not at all 6. Feeling bad about yourself - or that you are a failure or have let yourself or your family down: not at all 7. Trouble concentrating on things, such as reading the newspaper or watching television: not at all 8. Moving or speaking so slowly that other people could have noticed. Or the opposite - being so fidgety or restless that you have been moving around a lot more than usual: not at all 9. Thoughts that you would be better off or of hurting yourself in some way: not at all Total score: 0 Depression Screening Interpretation: Negative Depression Screening Done: Yes 13542 - PHQ-9 Billing: Yes Source: Developed by Drs. Dwayne Jones, Ly Dale, Rayo Joseph and colleagues, with an educational salvatore from [employer]. Thrive Questionnaire Date Thrive assessed: 05/02/24 I am a: Patient What is your living situation today?: I have a steady place to live Within the past 12 months, did the food you bought not last and you didn't have the money to get more?: Never true Within the past 12 months, did you worry whether your food would run out before you got money to buy more?: Never true Do you have trouble paying for medicines?: No Do you have trouble getting transportation to medical appointments?: No Do you have trouble paying your heating and electricity bill?: No Do you have trouble taking care of your child, family member or friend?: No Do you have trouble with day-to-day activities such as bathing, preparing meals, shopping, managing finances, etc.?: No Are you currently unemployed and looking for a job?: No Are you interested in more education?: No Please select the resources that you would like help with: None Currently or been in a relationship where the following occur: No concerns reported THRIVE Score: 0 AUDIT C Alcohol Use Questionnaire (AUDIT-C) 1. How often do you have a drink containing alcohol?: Monthly or less 2. How many drinks containing alcohol do you have on a typical day when you are drinking?: 1 or 2 3. How often do you have six or more drinks on one occasion?: Never Total Score: 1 Score Reviewed/Action Taken: Yes HARRY-7 AMB Questionnaire HARRY-7 Date HARRY - 7 assessed: 05/02/24 Feeling nervous, anxious, or on edge: 0 = Not at all Not being able to stop or control worryin = Not at all Worrying too much about different things: 0 = Not at all Trouble relaxin = Not at all Being so restless that it is hard to sit still: 0 = Not at all Becoming easily annoyed or irritable: 0 = Not at all Feeling afraid as if something awful might happen: 0 = Not at all Total HARRY-7 score (0-4 normal; 5-9 mild; 10-14 moderate; 15-21 severe): 0 Source: Developed by Drs. Dwayne Jones, Ly Dale, Rayo Joseph and colleagues, with an educational salvatore from [employer]. HARRY-7 Assessment Billing HARRY-7 Assessment Tool: HARRY-7 Assessment 07931 Review of Systems Const Denies fatigue, Denies fever(s), Denies headache(s), Denies poor appetite and Denies weakness Eyes Denies change in vision ENT Denies dizziness, Denies headache(s), Denies nasal congestion, Denies nasal discharge and Denies sore throat Card Denies chest pain, Denies lightheadedness, Denies palpitations and Denies dyspnea Resp Denies chest congestion, Denies cough, Denies dyspnea and Denies wheezing GI Denies abdominal pain, Denies change in bowel habits and Denies heartburn Denies hematuria, Denies urinary frequency, Denies dysuria and Denies urinary urgency Musc Reports arthralgias, Denies joint swelling, Denies muscle weakness and Reports stiffness Skin/Breast Denies lesions and Denies rash Neuro Denies dizziness, Denies headache(s) and Denies weakness Psych Reports no additional complaints Endo Denies fatigue, Denies polydipsia, Denies polyuria and Denies palpitations Edgar/Lymph Reports easy bruising Aller/Immun Denies seasonal rhinorrhea and Denies wheezing Physical exam (Primary Care) Vital Signs: Last Vital Signs Temp 97.7 F 05/02/24 14:06 Pulse 92 05/02/24 14:06 Resp 15 05/02/24 14:06 BP 128/80 05/02/24 14:06 Pulse Ox 92 05/02/24 14:06 Oxygen Delivery Method Room Air 05/02/24 14:06 BMI result Body Mass Index 34.0 Tobacco/Smoking Status: Tobacco use Status Tobacco use date assessed 05/02/24 05/02/24 14:08 Patient Tobacco Use Status Former Tobacco user 05/02/24 14:08 e-Cigarette/Vaping Use Never Used 05/02/24 14:08 Depression Screening Interpretation: Negative Thrive Assessment: Date of Thrive Assessment Date Thrive assessed 04/17/24 05/02/24 14:08 Currently or been in a relationship where the following occur: No concerns reported Const General: comfortable, no acute distress and alert Orientation/consciousness: patient oriented x3 HENMT Ears: external ears normal, TM's normal bilaterally and EAC's normal General nose exam: Normal external nose present Mouth: Normal oral and palatal mucosa present, oropharynx normal and moist mucous membranes Eyes General: appearance normal, both eyes and all related structures Conjunctivae: conjunctivae normal Sclerae: sclerae normal Pupils: Equal, round and reactive pupils present EOM: EOMs intact bilaterally Neck Neck: Yes full ROM, Yes no lymphadenopathy and Yes supple Chest Breast/axilla palpation: normal palpation of the breasts Resp Effort & Inspection: normal respiratory effort and able to speak in complete sentences Auscultation: clear to auscultation bilaterally Cardio Rate: regular rate Rhythm: regular rhythm Heart sounds: S1 normal heart sound present and S2 normal heart sound present GI Palpation (GI): Soft to palpation, nontender and no masses Auscultation: normal bowel sounds General: Yes no CVA tenderness Back/Spine/Pelvis Back: no CVA tenderness and No back tenderness Skin General skin exam: no rashes or lesions noted Neuro General: patient oriented x3, gait normal, tone normal, moves all extremities, Normal light touch and pain sensation and no focal motor deficits Cranial nerves: Yes CN's II-XII intact bilaterally and Yes Equal, round and reactive pupils present Cognition (Neuro): normal cognition Extrem General: Yes full ROM, Yes no joint enlargement, Yes no clubbing, cyanosis or edema and Yes no calf tenderness Psych Appearance: grossly normal and well kempt Mental Status: mental status grossly normal Speech and movement: Normal speech and movement present Affect: normal affect Attitude: cooperative Thought process: Normal thought process present Thought content: Normal thought content present Coding Level of Care Code Est Pt Prev Care >65y(57785) Diagnoses Annual visit for general adult medical examination with abnormal findings Z00.01 Essential hypertension I10 Osteopenia of neck of right femur M85.851 Laterality: right Dyslipidemia E78.5 Impaired fasting glucose R73.01 Seronegative rheumatoid arthritis M06.00 Long-term use of immunosuppressant medication Z79.60 Elevated transaminase level R74.01 Primary hyperparathyroidism E21.0 Advanced directives, counseling/discussion Z71.89 Additional Codes PHQ-9 - 67294 - PHQ-9 Billing: Yes ([id number]) HARRY-7 Assessment Billing - HARRY-7 Assessment Tool: HARRY-7 Assessment [id number] ([id number]) Assessment & Plan Assessment & Plan (1) Annual visit for general adult medical examination with abnormal findings: Code(s): Z00.01 - Encounter for general adult medical examination with abnormal findings Plan: Will check appropriate labs. Continue regular dental visit every 6 months and regular eye exams, goes to [facility]. Take adequate calcium in diet and vitamin-D 3 at 2000 IU per cap once a day, in addition to weight-bearing exercises to help maintain good muscle tone and weight control. Instructed to do self-breast exam, and continue with yearly mammogram, due again in September this year, repeat bone density scan ordered to be scheduled together with mammogram up-to-date with her screening colonoscopy. Up-to-date with all her vaccinations but has not yet had her shingles vaccine which was recommended (2) Essential hypertension: Code(s): I10 - Essential (primary) hypertension Category: Medical Plan: Blood pressure at goal of less than 130/80. Continue with amlodipine 5 mg daily. Reinforced importance of following a low sodium diet, getting regular exercise, and lowering stress levels. (3) Osteopenia of femoral neck: Comment: Dr. Pack, received Reclast 10/2019,12/2020, 12/2021 previously had one benoit of Prolia 12/2018(stopped due to flare of PMR) Code(s): M85.859 - Other specified disorders of bone density and structure, unspecified thigh Category: Medical Qualifiers: Laterality: right Qualified Code(s): M85.851 - Other specified disorders of bone density and structure, right thigh Plan: Ordered a repeat bone density scan to be scheduled together with her screening mammogram in September this year, continue with adequate dietary calcium intake, and vitamin D3 25 mcg daily, together with weight-bearing exercise (4) Dyslipidemia: Code(s): E78.5 - Hyperlipidemia, unspecified Category: Medical Plan: Fasting lipid panel ordered today. (5) Impaired fasting glucose: Code(s): R73.01 - Impaired fasting glucose Category: Medical Plan: Fasting lipid panel ordered today. . Continue with adherence to low-cholesterol diet and regular exercise, at least 30 minutes 3 to 4 times a week. Advised patient to make healthy food choices, eat more fruits, vegetables, whole grains, wild caught fish and low-fat dairy. Limit amount of meat and fried or fatty food products, as well as processed foods and fast foods. (6) Seronegative rheumatoid arthritis: Code(s): M06.00 - Rheumatoid arthritis without rheumatoid factor, unspecified site Category: Medical Plan: Has an appointment with Dr. Bill valdes up, currently on prednisone 1 mg daily (7) Long-term use of immunosuppressant medication: Code(s): Z79.60 - terminal carman (current) use of unspecified immunomodulators and immunosuppressants Category: Medical Plan: Currently on prednisone 1 mg daily (8) Elevated transaminase level: Code(s): R74.01 - Elevation of levels of liver transaminase levels Category: Medical Plan: Ordered a comprehensive metabolic panel (9) Primary hyperparathyroidism: Comment: Followed by Dr. Pack Code(s): E21.0 - Primary hyperparathyroidism Category: Medical Plan: Ordered comprehensive metabolic panel ionized calcium, parathyroid hormone intact (10) Advanced directives, counseling/discussion: Code(s): Z71.89 - Other specified counseling Plan: Initiated the conversation about Advanced Directives. Advanced Directives help patients prepare for current and future decisions about their medical treatment and place of care. Discussed with patient that it is a process where a patients current condition and prognosis are reviewed, their wishes for information regarding their illness are elicited, and likely medical dilemmas are presented and options discussed. Healthcare proxy form completed today. The form can be amended as needed, reviewed yearly and make changes as needed Orders: Orders Comprehensive [place]. Panel Fast 05/02/24 E55.9 - Vitamin D deficiency, unspecified, E78.5 - Hyperlipidemia, unspecified, I10 - Essential (primary) hypertension, M06.00 - Rheumatoid arthritis without rheumatoid factor, unspecified site, M85.851 - Other specified disorders of bone density and structure, right thigh, R73.01 - Impaired fasting glucose, R74.01 - Elevation of levels of liver transaminase levels, Z79.60 - terminal carman (current) use of unspecified immunomodulators and immunosuppressants Lipid Panel 05/02/24 E55.9 - Vitamin D deficiency, unspecified, E78.5 - Hyperlipidemia, unspecified, I10 - Essential (primary) hypertension, M06.00 - Rheumatoid arthritis without rheumatoid factor, unspecified site, M85.851 - Other specified disorders of bone density and structure, right thigh, R73.01 - Impaired fasting glucose, R74.01 - Elevation of levels of liver transaminase levels, Z79.60 - terminal carman (current) use of unspecified immunomodulators and immunosuppressants Calcium, Ionized 05/02/24 E21.0 - Primary hyperparathyroidism XR DEXA axial skeleton 10/10/24 E21.0 - Primary hyperparathyroidism, M85.89 - Other specified disorders of bone density and structure, multiple sites Vitamin D 25-OH Total 05/02/24 E55.9 - Vitamin D deficiency, unspecified, E78.5 - Hyperlipidemia, unspecified, I10 - Essential (primary) hypertension, M06.00 - Rheumatoid arthritis without rheumatoid factor, unspecified site, M85.851 - Other specified disorders of bone density and structure, right thigh, R73.01 - Impaired fasting glucose, R74.01 - Elevation of levels of liver transaminase levels, Z79.60 - snf (current) use of unspecified immunomodulators and immunosuppressants Varicella IgG Antibody 05/02/24 E55.9 - Vitamin D deficiency, unspecified, E78.5 - Hyperlipidemia, unspecified, I10 - Essential (primary) hypertension, M06.00 - Rheumatoid arthritis without rheumatoid factor, unspecified site, M85.851 - Other specified disorders of bone density and structure, right thigh, R73.01 - Impaired fasting glucose, R74.01 - Elevation of levels of liver transaminase levels, Z79.60 - snf (current) use of unspecified immunomodulators and immunosuppressants Parathyroid Hormone Intact 05/02/24 E21.0 - Primary hyperparathyroidism
== END 2024-05-02 14:57 | disposition home or self-care (01) ==
PROVIDERS: PCP Internal Medicine; Visit Provider Internal Medicine
DX: Z00.00 Encounter for general adult medical examination without abnormal findings (principal); M06.00 Rheumatoid arthritis without rheumatoid factor, unspecified site; E21.0 Primary hyperparathyroidism; I10 Essential (primary) hypertension; M85.851 Other specified disorders of bone density and structure, right thigh; E78.5 Hyperlipidemia, unspecified; R73.01 Impaired fasting glucose; Z79.60 Long term (current) use of unspecified immunomodulators and immunosuppressants; R74.01 Elevation of levels of liver transaminase levels; Z71.89 Other specified counseling

== ENCOUNTER → 2024-05-02 13:20 | Outpatient (BNVA) | payer MEDICARE, SELFPAY | PROVIDERS: PCP Internal Medicine; Visit Provider Internal Medicine | DX: Z00.01 Encounter for general adult medical examination with abnormal findings (principal); I10 Essential (primary) hypertension; M85.851 Other specified disorders of bone density and structure, right thigh; E78.5 Hyperlipidemia, unspecified; R73.01 Impaired fasting glucose; M06.00 Rheumatoid arthritis without rheumatoid factor, unspecified site; R74.01 Elevation of levels of liver transaminase levels; E21.0 Primary hyperparathyroidism; Z79.60 Long term (current) use of unspecified immunomodulators and immunosuppressants; Z71.89 Other specified counseling | CPT/HCPCS: 96127; 99397 ==

== ENCOUNTER 2024-05-04 09:05 | Outpatient (REF) | payer MEDICARE, SELFPAY ==
[2024-05-04 11:08] LABS: Parathyroid Hormone Intact 171.6 pg/mL (8.7-77.1)
[2024-05-04 11:11] LABS: Alanine Aminotransferase 55 U/L (0-31); Albumin Level 4.2 g/dL (3.5-5.0); Alkaline Phosphatase 75 U/L (39-117); Anion Gap 10 (12-20); Aspartate Amino Transferase 31 U/L (5-31); Bilirubin Total 0.6 mg/dL (0.0-1.0); Blood Urea Nitrogen 21 mg/dL (9-16); Carbon Dioxide 24 mmol/L (22-29); Chloride 111 mmol/L (96-108); Cholesterol 226 mg/dL (<200); Estimated Glomerular Filt Rate > 60; Glucose Fasting 102 mg/dL (60-99); HDL Cholesterol 60 mg/dL (>40); LDL Cholesterol Calculated 131 mg/dL (<100); Sodium 141 mmol/L (135-145); Total Protein 6.9 g/dL (6.5-8.0); Triglycerides 179 mg/dL (<150)
[2024-05-04 11:27] LABS: Vitamin D 25-OH Total 33.3 ng/mL (>30)
[2024-05-05 17:43] LABS: Varicella IgG Antibody 3.09 S/CO
[2024-05-06 07:49] LABS: Calcium, Ionized 5.5 mg/dL (4.7-5.5)
== END 2024-05-04 09:06 | disposition home or self-care (01) ==
LOC: HO.HMGCLDS 09:05
PROVIDERS: PCP Internal Medicine; Visit Provider Internal Medicine
DX: E21.0 Primary hyperparathyroidism (principal); I10 Essential (primary) hypertension; E55.9 Vitamin D deficiency, unspecified; R73.01 Impaired fasting glucose; R74.01 Elevation of levels of liver transaminase levels; M06.00 Rheumatoid arthritis without rheumatoid factor, unspecified site; Z79.60 Long term (current) use of unspecified immunomodulators and immunosuppressants; E78.5 Hyperlipidemia, unspecified; M85.851 Other specified disorders of bone density and structure, right thigh
CPT/HCPCS: 36415; 80053; 80061; 82306; 82330; 83970; 86787

== ENCOUNTER 2024-05-24 10:26 | Outpatient (AMB) | payer MEDICARE, SELFPAY ==
--- NOTE | 2024-05-24 10:37 | MHC.OFFVIS ---
Vital Signs 05/24/24 10:39 Height 5 ft 2.35 in Weight 183 lb 10.321 oz BMI 33.2 BP 140/74 H Blood Pressure Location Rt brachial Position Sitting Pulse 73 Pulse Source Pulse Oximeter Pulse Oximetry (%) 98 Oxygen Delivery Method Room Air Intake Visit Reasons: Primary hyperparathyroidism Intake Note: Patient internally referred to Endo by PCP for Primary Hyperparathyroidism, latest parathyroid hormone intact is at 171.6, higher than last check, serum calcium and vitamin-D levels are within normal limits. Osteopathic Medicine Teacher Required: No Accompanied by: Self / Same As Patient Allergies nicotine [NICOTINE] Allergy (Intermediate, Verified 05/24/24 10:40) NICOTINE PATCH-BLISTERS, skin irritation/blisters, skin irritation/blisters amoxicillin [From AUGMENTIN] Adverse Reaction (Intermediate, Verified 05/24/24 10:40) VOMITING/DIARRHEA Latex Allergy (Mild, Uncoded 05/24/24 10:40) Rash Statins Support Adverse Reaction (Intermediate, Uncoded 05/24/24 10:40) muscle cramps Medication List - Last Reconciled 05/24/24 by Dwayne Ochoa MD amlodipine 5 mg PO DAILY cholecalciferol (vitamin D3) 25 mcg PO DAILY prednisone 1 mg PO DAILY HPI Comments Details: 68 YO Female with PMHx PMR on chronic prednisone, Primary hyperparathyroidism who is seen in F/U for Primary Hyperparathyroidism and Osteopenia. Patient received diagnosis of PMR in 2018 and has remained on Prednisone ever since. Started at 20 mg PO daily and this dose has been slowly tapered to her current dose of 10 mg PO daily. She also has hyperparathyroidism with elevated Calcium levels noted as far back as 2008. Recent BMD revealed Osteopenia of the hip and the spine. She was treated with 1 dose of Prolia 01/25/2019, but had a flare of her PMR shortly after so her Veneer Production Machine Operator has recommended the Prolia be discontinued. She then was transitioned to Reclast and had 1 dose of this October 2019, second 01/04/2021. She is seen today in F/U. We repeated lab work which confirmed hyperparathyroidism with PTH of 81, Total Calcium of 10.1 with Albumin WNL, and Vitamin D of 27. DEXA of the forearm was ordered, and revealed osteopenia. Repeat PTH was within normal limits as was calcium Interestingly her daughter has a similar presentation. No history of pathologic fracture or ONJ. Has no servings of dairy daily. Takes Vitamin D 1000 IU daily. Does not take a Calcium supplement. Uses Prednisone 10 mg PO daily and has been slowly tapering this. Has been on Prednisone use for over 2 year due to her PMR. Denies ever using PPI, anticoagulant, or antiepileptic medication. Does weight bearing exercise days per week in the form of. Fracture history: Never broken a bone. Height loss: Denies height loss. 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 Menses was always regular. Menopause at age 47. , did not breastfeed. History of Kidney stones: No history of kidney stones. Family history of hip fracture in her mother. No known family history of Osteoporosis. UTD on dental cleanings and sees dentist every 6 months. No planned upcoming dental work or extractions. DXA dated: 08/22/2020 L1-L4: T = -0.1 LFN: T = -1.7 RFN: T = -1.3 RTH: T = -0.8 Distal L Forearm: T = -1.6 US Kidney: 09/06/18 FINDINGS: RIGHT KIDNEY: 9.7 x 5.1 x 5.0 cm (SAG x AP x TRV). The kidney is normal in size, contour, and echogenicity. Renal cortical thickness is normal. No calculi or focal parenchymal lesions. No hydronephrosis. LEFT KIDNEY: 10.5 x 5.0 x 4.9 cm (SAG x AP x TRV). The kidney is normal in size, contour, and echogenicity. Renal cortical thickness is normal. No calculi or focal parenchymal lesions. No hydronephrosis. IMPRESSION: Unremarkable examination. Labs: Laboratory Tests 10/31/21 10/31/21 11:20 11:20 Creatinine 0.72 Estimated GFR > 60 Albumin 4.2 25-OH Vitamin D Total 34.0 PTH Intact 76 Calcium (PTH Intact) 10.0 The patient is a 68-year-old female presenting for f/u with suspected primary hyperparathyroidism. The condition was first investigated by a ferryboat deckhand who noted elevated levels of parathyroid hormone (PTH) and calcium. There is a history of similar findings in the past, with prior follow-ups under Dr. Pack. The patient had a mildly elevated calcium and PTH level previously, prompting continued investigation. An evaluation of vitamin D levels was normal during a previous assessment and is slated for reassessment. Past testing in 2019 showed a slight elevation in 24-hour urine calcium, possibly indicative of the parathyroid issue. However, imaging studies have not revealed kidney stones, though there was an unconfirmed mention regarding the left-side imaging. Bone density evaluations have demonstrated low bone mass without osteoporosis, historically treated with Reclast. The patient shares concerns about lab variability between local and external labs. [facility]LY [facility] Medical History Osteopenia of multiple sites Pain of both shoulder joints Impaired fasting glucose Goiter Dyslipidemia Hyperparathyroidism Vitamin D deficiency Primary hyperparathyroidism Osteopenia of femoral neck Essential hypertension Polymyalgia rheumatica Surgical History History of removal of cyst History of colonoscopy Family History Father HTN (hypertension) High cholesterol Dementia Mother Pneumonia Maternal Grandfather Unknown family medical history Maternal Grandmother Pneumonia Paternal Grandfather Unknown family medical history Paternal Grandmother Unknown family medical history Social History Household Members: None Housing: House Are you a primary acute care certified nursing assistant to a significant other at home: No Do you presently have visiting nurse or other home services: No Alcohol intake: current Alcohol intake frequency: a few times a month Alcohol type: wine Patient Tobacco Use Status: Former Tobacco user e-Cigarette/Vaping Use: Never Used service: No Current occupational status: retired Cognitive needs: No Hearing needs: No Vision needs: No Assessment & Plan Assessment & Plan (1) Osteoporosis: Code(s): M81.0 - Age-related osteoporosis without current pathological fracture Category: Medical Plan: This 68-year-old white female with a history of low bone mass with chronic treatment for PMR with prednisone and methotrexate. She received 1 dose of Prolia and 2 doses of Reclast. Secondary workup was negative. NTX remains suppressed. Recent labs showed mild elevation and calcium with elevation of PTH Plan is to repeat calcium, albumin, PTH, 25 hydroxy vitamin-D level at [facility] ([facility]) . If primary hyperparathyroidism exist, options would be to either observe or sent for parathyroid exploration. Although presently patient does not have osteoporosis on bone density but low bone mass she has been treated for osteoporosis in the past. If results are consistent with primary hyperparathyroidism, and repeat DEXA will be performed in 09/2024 and if significant decline in bone density, patient will be a candidate for parathyroid exploration 1. Primary Hyperparathyroidism: The laboratory results have indicated an elevation in PTH and calcium levels, raising concerns for primary hyperparathyroidism. Vitamin D was previously normal, ruling out secondary hyperparathyroidism. No immediate surgical intervention is recommended. Repeat testing through [facility] reference lab for validation is advised. If elevation persists, surgical options will be discussed further. The patient is informed about possible surgical referral to Dr. Martinez if required. Risks and benefits of surgery versus medical management have been thoroughly discussed. I will reassess lab results in conjunction with a possible repeat bone density scan. Follow-up is planned after these assessments. I discussed the concerns of primary hyperparathyroidism with the patient, explaining the need for repeat validation of elevated PTH and calcium levels by a reliable external lab, avoiding the inconsistencies previously encountered. The benefits and procedures of surgical intervention at [facility], including minimally invasive approaches, were detailed, emphasizing the necessity of addressing the disorder should the levels remain elevated. The viable option of entrusting an experienced surgeon,was presented, noting his expertise with such conditions. We examined the pros and cons of surgical intervention versus maintenance with medication. For now, a conservative approach of tracking any advancement through lab work is being applied, with no immediate urgency for surgery. Patient expressed understanding and concurrence with proceeding based on the results of future lab workups. - Undergo repeat blood work at the [facility] location as discussed; no fasting is necessary. - Monitor for any new symptoms and report them promptly. - Follow up in approximately three months with the results of the repeat tests to discuss next steps. - Consider scheduling a bone density scan in September, if recommended, based on lab results. - Continue with regular daily activities unless symptoms worsen. The patient had an opportunity to ask questions regarding treatment plan. The patient expressed understanding and agreement with the above treatment plan. Patient was informed and verbally consented to the use of an ambient scribe for clinic note documentation during this visit. (2) Osteopenia of multiple sites: Code(s): M85.89 - Other specified disorders of bone density and structure, multiple sites Category: Medical Plan See above Orders: Orders Albumin Level Today M85.89 - Other specified disorders of bone density and structure, multiple sites Parathyroid Hormone Intact Today M85.89 - Other specified disorders of bone density and structure, multiple sites Vitamin D 25-OH Total Today M85.89 - Other specified disorders of bone density and structure, multiple sites Calcium Today M85.89 - Other specified disorders of bone density and structure, multiple sites Coding Level of Care Code Est Pt Level 3 (77761) Diagnoses Osteoporosis M81.0 Osteopenia of multiple sites M85.89
[2024-05-24 10:39] VITALS: BP 140/74; PULSE 73; O2SAT 98; BMI 33.2
== END 2024-05-24 11:11 | disposition home or self-care (01) ==
LOC: HO.ENCR 10:27
PROVIDERS: PCP Internal Medicine; Visit Provider Internal Medicine Endocrinology, Diabetes & Metabolism
DX: M81.0 Age-related osteoporosis without current pathological fracture (principal); M85.89 Other specified disorders of bone density and structure, multiple sites
CPT/HCPCS: 99213

== ENCOUNTER → 2024-05-24 10:26 | Outpatient (BNVA) | payer MEDICARE, SELFPAY | PROVIDERS: PCP Internal Medicine; Visit Provider Internal Medicine Endocrinology, Diabetes & Metabolism | DX: M81.0 Age-related osteoporosis without current pathological fracture (principal); M85.89 Other specified disorders of bone density and structure, multiple sites | CPT/HCPCS: 99212 ==

== ENCOUNTER 2024-08-23 11:16 | Outpatient (AMB) | payer MEDICARE, SELFPAY ==
[2024-08-23 11:19] VITALS: BP 118/70; PULSE 79; O2SAT 99; BMI 33.3
--- NOTE | 2024-08-23 11:19 | A.OFFVIS_ITS ---
Vital Signs 08/23/24 11:19 Height 5 ft 2.35 in Weight 184 lb 4.903 oz BMI 33.3 BP 118/70 Blood Pressure Location Lt brachial Position Sitting Pulse 79 Pulse Source Pulse Oximeter Pulse Oximetry (%) 99 Oxygen Delivery Method Room Air Intake Visit Reasons: f/u hyperparathyroidism Intake Note: Patient present today for Hyperparathyroidism follow up. Allergies nicotine (NICOTINE) Allergy (Intermediate, Verified 08/23/24 11:23) NICOTINE PATCH-BLISTERS, skin irritation/blisters, skin irritation/blisters amoxicillin (From AUGMENTIN) Adverse Reaction (Intermediate, Verified 08/23/24 11:23) VOMITING/DIARRHEA Latex Allergy (Mild, Uncoded 08/23/24 11:23) Rash Statins Support Adverse Reaction (Intermediate, Uncoded 08/23/24 11:23) muscle cramps Medication List - Last Reconciled 08/23/24 by Dwayne Ochoa MD amlodipine 5 mg PO DAILY cholecalciferol (vitamin D3) 25 mcg PO DAILY prednisone 1 mg PO DAILY HPI Comments Details: 68 YO Female with PMHx PMR on chronic prednisone, Primary hyperparathyroidism who is seen in F/U for Primary Hyperparathyroidism and Osteopenia. Patient received diagnosis of PMR in 2018 and has remained on Prednisone ever since. Started at 20 mg PO daily and this dose has been slowly tapered to her current dose of 10 mg PO daily. She also has hyperparathyroidism with elevated Calcium levels noted as far back as 2008. Recent BMD revealed Osteopenia of the hip and the spine. She was treated with 1 dose of Prolia 01/25/2019, but had a flare of her PMR shortly after so her Ticker Wirer has recommended the Prolia be discontinued. She then was transitioned to Reclast and had 1 dose of this October 2019, second 01/04/2021. She is seen today in F/U. We repeated lab work which confirmed hyperparathyroidism with PTH of 81, Total Calcium of 10.1 with Albumin WNL, and Vitamin D of 27. DEXA of the forearm was ordered, and revealed osteopenia. Repeat PTH was within normal limits as was calcium Interestingly her daughter has a similar presentation. No history of pathologic fracture or ONJ. Has no servings of dairy daily. Takes Vitamin D 1000 IU daily. Does not t abner a Calcium supplement. Uses Prednisone 10 mg PO daily and has been slowly tapering this. Has been on Prednisone use for over 2 year due to her PMR. Denies ever using PPI, anticoagulant, or antiepileptic medication. Does weight bearing exercise days per week in the form of. Fracture history: Never broken a bone. Height loss: Denies height loss. 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 Menses was always regular. Menopause at age 47. , did not breastfeed. History of Kidney stones: No history of kidney stones. Family history of hip fracture in her mother. No known family history of Osteoporosis. UTD on dental cleanings and sees dentist every 6 months. No planned upcoming dental work or extractions. DXA dated: 08/22/2020 L1-L4: T = -0.1 LFN: T = -1.7 RFN: T = -1.3 RTH: T = -0.8 Distal L Forearm: T = -1.6 US Kidney: 09/06/18 FINDINGS: RIGHT KIDNEY: 9.7 x 5.1 x 5.0 cm (SAG x AP x TRV). The kidney is normal in size, contour, and echogenicity. Renal cortical thickness is normal. No calculi or focal parenchymal lesions. No hydronephrosis. LEFT KIDNEY: 10.5 x 5.0 x 4.9 cm (SAG x AP x TRV). The kidney is normal in size, contour, and echogenicity. Renal cortical thickness is normal. No calculi or focal parenchymal lesions. No hydronephrosis. IMPRESSION: Unremarkable examination. Labs: Laboratory Tests 10/31/21 10/31/21 11:20 11:20 Creatinine 0.72 Estimated GFR > 60 Albumin 4.2 25-OH Vitamin D Total 34.0 PTH Intact 76 Calcium (PTH Intact) 10.0 The patient is a 68-year-old female presenting for f/u with suspected primary hyperparathyroidism. The condition was first investigated by a executive manager who noted elevated levels of parathyroid hormone (PTH) and calcium. There is a history of similar findings in the past, with prior follow-ups under Dr. Pack. The patient had a mildly elevated calcium and PTH level previously, prompting continued investigation. An evaluation of vitamin D levels was normal during a previous assessment and is slated for reassessment. Past testing in 2019 showed a slight elevation in 24-hour urine calcium, possibly indicative of the parathyroid issue. However, imaging studies have not revealed kidney stones, though there was an unconfirmed mention regarding the left-side imaging. Bone density evaluations have demonstrated low bone mass without osteoporosis, historically treated with Reclast. The patient shares concerns about lab variability between local and external labs. Recent workup with labs from [facility] ([facility]) showed mild vitamin-D deficiency with slight elevation of PTH consistent with possible secondary hyperparathyroidism The vitamin D deficiency was identified during a recent lab test at [facility], which showed a slightly low vitamin D level of 27 ng/mL, with normal being above 30 ng/mL. The parathyroid hormone (PTH) level was elevated at 79 pg/mL, with normal levels up to 65 pg/mL, suggesting secondary hyperparathyroidism likely due to the vitamin D deficiency. The patient has been taking 1,000 IU of vitamin D3 daily, which will be increased to 2,000 IU to address the deficiency. The calcium level was normal at 9.8 mg/dL, and the albumin level was also normal. The patient has a history of osteopenia, which is a concern due to the potential impact of elevated PTH on bone density. There is no immediate concern for osteoporosis or kidney stones, but these are potential risks if the condition persists. FOR[facility]LY [facility] Medical History Osteopenia of multiple sites Pain of both shoulder joints Impaired fasting glucose Goiter Dyslipidemia Hyperparathyroidism Vitamin D deficiency Primary hyperparathyroidism Osteopenia of femoral neck Essential hypertension Polymyalgia rheumatica Surgical History History of removal of cyst History of colonoscopy Family History Father HTN (hypertension) High cholesterol Dementia Mother Pneumonia Maternal Grandfather Unknown family medical history Maternal Grandmother Pneumonia Paternal Grandfather Unknown family medical history Paternal Grandmother Unknown family medical history Social History Household Members: None Housing: House Are you a primary coronary care unit nurse to a significant other at home: No Do you presently have visiting nurse or other home services: No Alcohol intake: current Alcohol intake frequency: a few times a month Alcohol type: wine Patient Tobacco Use Status: Former Tobacco user e-Cigarette/Vaping Use: Never Used service: No Current occupational status: retired Cognitive needs: No Hearing needs: No Vision needs: No Physical Exam Vital Signs: BMI result Body Mass Index 33.3 Assessment & Plan Assessment & Plan (1) Osteoporosis: Code(s): M81.0 - Age-related osteoporosis without current pathological fracture Category: Medical Plan: This 68-year-old white female with a history of low bone mass with chronic treatment for PMR with prednisone and methotrexate. She received 1 dose of Prolia and 2 doses of Reclast. Secondary workup was negative. NTX remains suppressed. Recent labs showed mild suppression of vitamin-D with elevation of PTH versus mild primary hyperparathyroidism Plan is to increase the vitamin D3 to 2000 IU per day. We will recheck 25 hydroxy vitamin-D, calcium, albumin, PTH at [facility] ( [facility] ) in 12 weeks. 1. Secondary hyperparathyroidism Increase vitamin D3 to 2,000 IU daily and recheck labs in three months. Evaluate for parathyroid growth if PTH remains elevated. 2. Vitamin D deficiency Increase vitamin D3 to 2,000 IU daily and repeat vitamin D level in three months. 3. Osteopenia Monitor bone density and maintain adequate vitamin D levels to prevent progression to osteoporosis. I discussed with the patient that the elevated parathyroid hormone level is likely due to vitamin D deficiency, termed secondary hyperparathyroidism. We agreed to increase her vitamin D3 intake to 2,000 IU daily and re-evaluate her lab results in three months. I explained that if the parathyroid hormone level remains elevated despite normal vitamin D levels, further investigation for a parathyroid growth may be necessary. I reassured her that there is no immediate concern for osteoporosis or kidney stones, but these are potential risks if the condition persists. We also discussed the importance of monitoring her bone density due to her history of osteopenia. The patient had an opportunity to ask questions regarding treatment plan. The patient expressed understanding and agreement with the above treatment plan. Patient was informed and verbally consented to the use of an ambient scribe for clinic note documentation during this visit. (2) Osteopenia of multiple sites: Code(s): M85.89 - Other specified disorders of bone density and structure, multiple sites Category: Medical Plan: See above Plan See above Coding Level of Care Code Est Pt Level 3 (19028) Diagnoses Osteoporosis M81.0 Osteopenia of multiple sites M85.89
--- OUTSIDE RECORDS SUMMARY | 2024-08-23 12:54 | XMS_ITS | Patient Health Record ---
Author Organization [facility] Address [address] [place] [address] Care Team Providers Care Fuel Cell Engineer Name Role Phone RILEYZOHRA Primary Care Provider Lito Gutierrez Jr Unavailable Allergies Allergen (clinical drug ingredient) Drug/Non Drug Allergy documented on EMR Reaction Allergy Type Onset Date Status amoxicillin / clavulanate Augmentin Unknown Drug Allergy Active Latex latex (uncoded) Unknown Allergy Acti ve Reason For Referral No Information Medications Medication SIG (Take, Route, Fr equency, Duration) Notes Start Date End Date Status Aspirin EC 325 MG 1 tablet Orally Once a day Active Social History Tobacco Use: Social History Observation Description Date Details (start date - stop date) Former Smoker NA - NA Tobacco Use/Smoking Question Answer Notes Patient is a former smoker How long has it been since you last smoked? 1-5 years Alcohol Screen Question Answer Notes Did you have a drink contain ing alcohol in the past year? Yes How often did you have a dri nk containing alcohol in the past year? Monthly or less (1 point) How many drinks did you have on a typical day when you were drinking in the past year? 1 or 2 drinks (0 point) How often did you have 6 or more drinks on one occasion in the past year? Never (0 point) Points 1 Interpretation Negative Problems Problem Type SNOMED Code ICD Code Onset Dates Problem Status W/U Status Risk Notes Problem [id number] Colon cancer screening (Z12.11) Active confirmed Problem [id number] Long-term use of aspirin therapy (Z79.82) Active confirmed Plan Of Treatment Future Test Test Name Order Date COLONOSCOPY 11/27/2016 Insurance Providers Payer Name Payer Address Payer Phone Subscriber Number Group Number Insured Name Patient Relationship to Insured Coverage Start Date Coverage End Date [facility] [address] [place] [phone] [id number] CAS JASON Self - patient is the insured Medical (General) History Medical History History ICD Code elevated cholesterol Surgical History Surgery Date(Month/Year) appendectomy ovarian cyst resection tubal ligation submandibular cyst- Dr. cardoso
== END 2024-08-23 11:48 | disposition home or self-care (01) ==
LOC: HO.ENCR 11:16
PROVIDERS: PCP Internal Medicine; Visit Provider Internal Medicine Endocrinology, Diabetes & Metabolism
DX: M81.0 Age-related osteoporosis without current pathological fracture (principal); M85.89 Other specified disorders of bone density and structure, multiple sites
CPT/HCPCS: 99213

== ENCOUNTER → 2024-08-23 11:16 | Outpatient (BNVA) | payer MEDICARE, SELFPAY | PROVIDERS: PCP Internal Medicine; Visit Provider Internal Medicine Endocrinology, Diabetes & Metabolism | DX: M81.0 Age-related osteoporosis without current pathological fracture (principal); M85.89 Other specified disorders of bone density and structure, multiple sites | CPT/HCPCS: 99212 ==

== ENCOUNTER 2024-10-25 08:57 | Outpatient (AMB) | payer MEDICARE, SELFPAY ==
--- NOTE | 2024-10-25 08:58 | A.OFFVIS_ITS ---
Vital Signs 10/25/24 09:03 Height 5 ft 2.35 in Weight 180 lb 8.937 oz BMI 32.7 BP 140/82 H Blood Pressure Location Lt brachial Position Sitting Pulse 78 Pulse Source Pulse Oximeter Pulse Oximetry (%) 98 Oxygen Delivery Method Room Air Intake Visit Reasons: PMR Intake Note: Patient presents for PMR follow up. Allergies nicotine (NICOTINE) Allergy (Intermediate, Verified 10/25/24 09:02) NICOTINE PATCH-BLISTERS, skin irritation/blisters, skin irritation/blisters amoxicillin (From AUGMENTIN) Adverse Reaction (Intermediate, Verified 10/25/24 09:02) VOMITING/DIARRHEA Latex Allergy (Mild, Uncoded 08/23/24 11:23) Rash Statins Support Adverse Reaction (Intermediate, Uncoded 08/23/24 11:23) muscle cramps Medication List - Last Reconciled 10/25/24 by Valencia Salgado MD amlodipine 5 mg PO DAILY cholecalciferol (vitamin D3) 25 mcg PO DAILY prednisone 1 mg PO DAILY HPI Comments Details: Patient is a 69-year-old female with hypertension, hyperlipidemia, primary hyperparathyroidism complicated by osteopenia and PMR/seronegative rheumatoid arthritis here today for follow up Interval History: Patient last seen 02/22/[address] 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 Relapse of PMR after Prolia injection in December 2018-worsening symptoms as well as elevated inflammatory markers -Restarted on 10 mg prednisone daily tapered off April 2022. MRI of both hips 05/20/2019 showed marked and the slightest/tendinitis at both hips involving the abductor insertions, iliopsoas insertions, hamstring origins, and abductor origins. Restarted on prednisone June 2022 for what appears to be seronegative rheumatoid arthritis. MTX added in by Dr. Mota due to small joint synovitis. MTX discontinued by patient 06/2023 due to significant GI upset PDN continued Current Rheumatology Medication(s): Prednisone 1mg PFSH Medical History Osteopenia of multiple sites Pain of both shoulder joints Impaired fasting glucose Goiter Dyslipidemia Hyperparathyroidism Vitamin D deficiency Primary hyperparathyroidism Osteopenia of femoral neck Essential hypertension Polymyalgia rheumatica Surgical History History of removal of cyst History of colonoscopy Family History Father HTN (hypertension) High cholesterol Dementia Mother Pneumonia Maternal Grandfather Unknown family medical history Maternal Grandmother Pneumonia Paternal Grandfather Unknown family medical history Paternal Grandmother Unknown family medical history Social History Household Members: None Housing: House Are you a primary medicare sales executive to a significant other at home: No Do you presently have visiting nurse or other home services: No Alcohol intake: current Alcohol intake frequency: a few times a month Alcohol type: wine Patient Tobacco Use Status: Former Tobacco user e-Cigarette/Vaping Use: Never Used service: No Current occupational status: retired Cognitive needs: No Hearing needs: No Vision needs: No Review of Systems Const Details: Review of Systems Constitutional: Denies fever, chills, weight loss ENT: Denies vision changes, eye pain or eye redness, dental caries, dry mouth GI: Denies nausea, vomiting, diarrhea, abdominal pain, change in BM Pulm: Denies SOB, BENOIT, hemoptysis, wheezing Cards: Denies chest pain, palpitations Skin: Denies Raynaud's, rash, nail changes, photosensitivity, TECHNICAL SERVICE SPECIALIST: Denies headaches MSK: as per HPI All other systems reviewed and are unremarkable except noted above Physical Exam Exam Exam: Vital signs reviewed Physical Examination CONSTITUITIONAL Patient alert and cooperative. Well appearing and in no apparent painful distress MSK Hands * Right Hand: Able to make a fist. No swelling or tenderness to palpation of the MCPs, PIPs or DIPs. No deformities noted. * Left Hand: Able to make a fist. No swelling or tenderness to palpation of the MCPs, PIPs or DIPs. No deformities noted. Wrists * Right Wrist: Full ROM to flexion and extension. No swelling or TTP * Left Wrist: Full ROM to flexion and extension. No swelling or TTP Elbows * Right Elbow: Full ROM. No swelling or TTP. No TTP of the medial epicondyle. No TTP of the lateral epicondyle * Left Elbow: Full ROM. No swelling or TTP. No TTP of the medial epicondyle. No TTP of the lateral epicondyle Shoulders * Right shoulder: Decreased passive ROM but Full active ROM. No swelling noted. No TTP of the AC joint. No TTP of the subacromial bursa. No TTP of the posterior shoulder * Left shoulder: Decreased passive ROM but Full active ROM. No swelling noted. No TTP of the AC joint. No TTP of the subacromial bursa. No TTP of the pos terior shoulder Hip bursa: No tenderness to palpation bilaterally Knees * Right knee: Full ROM. No swelling noted. No TTP of the knee joint line. No TTP of pes anserine bursa * Left knee: Full ROM. No swelling noted. No TTP of the knee joint line. No TTP of pes anserine bursa. * Crepitations felt bilaterally Ankles * Right ankle: Good ankle dorsiflexion and plantar flexion. No swelling. No TTP of the ankle joint * Left ankle: Good ankle dorsiflexion and plantar flexion. No swelling. No TTP of the ankle joint Feet * Right foot: Negative squeeze test * Left foot: Negative squeeze test Tender points? * No tenderness to palpation of the bilateral trapezius, supraspinatus, anterior costochondral junctions, bilateral suboccipital muscle insertions SKIN No rashes Vital Signs: Last Vital Signs Pulse 78 10/25/24 09:03 BP 140/82 H 10/25/24 09:03 Pulse Ox 98 10/25/24 09:03 Oxygen Delivery Method Room Air 10/25/24 09:03 BMI result Body Mass Index 32.7 Results Reviewed Results Reviewed: Laboratory Tests 02/16/24 05/04/24 10:15 09:10 WBC 8.3 RBC 4.37 Hgb 14.1 Hct 41.3 Plt Count 121 L ESR 2 Sodium 141 Potassium 4.0 Chloride 111 H Carbon Dioxide 24 BUN 21 H Creatinine 0.75 AST 31 ALT 55 H C-Reactive Protein 0.41 25-OH Vitamin D Total 33.3 PTH Intact 171.6 H DEXA 09/2022 AP spine 0.5 Right femoral neck -1.4 Right total hip -0.9 Left total forearm -2.0 Left 1/3 forearm -1.8 Assessment & Plan Assessment & Plan (1) Polymyalgia rheumatica: Comment: Diagnosed summer 2017, on chronic prednisone since. Relapse of PMR after Prolia injection in December 2018-worsening symptoms as well as elevated inflammatory markers -Restarted on 10 mg prednisone daily tapered off April 2022. MRI of both hips 05/20/2019 showed marked and the slightest/tendinitis at both hips involving the abductor insertions, iliopsoas insertions, hamstring origins, and abductor origins. Restarted on prednisone June 2022 for what appears to be seronegative rheumatoid arthritis. MTX added in by Dr. Mota due to small joint synovitis. MTX discontinued by patient 06/2023 due to significant GI upset PDN continued Code(s): M35.3 - Polymyalgia rheumatica Category: Medical Plan: #PMR Patient is a 69-year-old female with PMR currently tapering her prednisone without return of symptoms. We will check labs today and if they show no return of inflammation she can discontinue her prednisone Plan - Prednisone 1mg, once ESR/CRP is normal will discontinue - Labs today: CBC, CMP, ESR, CRP - RTC 1 year - Labs before visit: CBC, CMP, ESR, CRP (2) Osteopenia of multiple sites: Comment: Dr. Pack, received Reclast 10/2019,12/2020, 12/2021 previously had one benoit of Prolia 12/2018 (stopped due to flare of PMR) Code(s): M85.89 - Other specified disorders of bone density and structure, multiple sites Category: Medical Plan: #Osteopenia Not currently on any treatment Has a follow up DEXA this month, will follow up results Continue Endo follow up and Vit D supplementation Plan I spent 25minutes reviewing the record and labs, taking a history, examining the patient, discussing the treatment plan, ordering diagnostic work up and documenting in the medical record Orders: Orders Vitamin D 25-OH Total Today E55.9 - Vitamin D deficiency, unspecified Coding Level of Care Code Est Pt Level 3 (30807) Complex EM visit Add On G2211 Diagnoses Polymyalgia rheumatica M35.3 Osteopenia of multiple sites M85.89
[2024-10-25 09:03] VITALS: BP 140/82; PULSE 78; O2SAT 98; BMI 32.7
--- OUTSIDE RECORDS SUMMARY | 2024-10-25 09:18 | XMS_ITS | Patient Health Record ---
Author Organization [facility] Address [address] [place] [address] Care Team Providers Care Event Specialist Food Demonstrator Name Role Phone RILEYZOHRA Primary Care Provider [...] Problem Status W/U Status Risk Notes Problem [id number] Colon cancer screening (Z12.11) Active confirmed Problem [id number] Long-term use of aspirin therapy (Z79.82) Active confirmed Plan Of Treatment Future Test Test Name Order Date COLONOSCOPY 11/27/2016 Insurance Providers Payer Name Payer Address Payer Phone Subscriber Number Group Number Insured Name Patient Relationship to Insured Coverage Start Date Coverage End Date [facility] [address] [place] [phone] [id number] CAS JASON Self - patient is the insured Medical (General) History Medical History History ICD Code elevated cholesterol Surgical History Surgery Date(Month/Year) appendectomy ovarian cyst resection tubal ligation submandibular cyst- Dr. cardoso
== END 2024-10-25 09:28 | disposition home or self-care (01) ==
LOC: HO.RHES 08:57
PROVIDERS: PCP Internal Medicine; Visit Provider Student in an Organized Health Care Education/Training Program
DX: M35.3 Polymyalgia rheumatica (principal); M85.89 Other specified disorders of bone density and structure, multiple sites
CPT/HCPCS: 99213; G2211

== ENCOUNTER 2024-10-25 08:57 | Outpatient (REF) | payer MEDICARE, SELFPAY ==
[2024-10-25 13:07] LABS: MANUAL DIFF FLAG NO
[2024-10-25 13:43] LABS: Alanine Aminotransferase 47 U/L (0-31); Albumin Level 4.5 g/dL (3.5-5.0); Alkaline Phosphatase 74 U/L (39-117); Anion Gap 11 (12-20); Aspartate Amino Transferase 32 U/L (5-31); Blood Urea Nitrogen 16 mg/dL (9-16); Calcium 10.3 mg/dL (8.4-10.2); Carbon Dioxide 25 mmol/L (22-29); Chloride 107 mmol/L (96-108); Estimated Glomerular Filt Rate > 60; Potassium 4.6 mmol/L (3.3-5.1); Sodium 138 mmol/L (135-145); Total Protein 6.6 g/dL (6.5-8.0)
[2024-10-25 13:45] LABS: Hematocrit 40.7 % (37.0-47.0); Hemoglobin 13.8 g/dl (12.0-16.0); Imm Gran Abs Auto 0.02 X10*3/uL (0.00-0.03); Imm Gran Pct Auto 0.3 % (0.0-0.4); Lymphocytes Absolute Auto 1.5 X10*3/uL (1.2-4.9); Mean Corpuscular HGB Conc 33.9 g/dl (31.0-35.0); Mean Corpuscular Hemoglobin 31.9 pg (27.0-33.0); Mean Corpuscular Volume 94.2 fL (80.0-98.0); NRBC Abs Auto 0.000 X10*3/uL (0.0-0.012); NRBC Pct Auto 0.0 /100WBC (0.0-0.2); Platelet Count 111 X10*3/uL (160-400); Red Blood Count 4.32 X10*6/uL (4.20-5.50); White Blood Count 5.8 X10*3/uL (4.8-10.8)
== END 2024-10-25 08:58 | disposition home or self-care (01) ==
LOC: HO.HKASLDS 08:57
PROVIDERS: PCP Internal Medicine; Visit Provider Student in an Organized Health Care Education/Training Program
DX: M35.3 Polymyalgia rheumatica (principal); M06.00 Rheumatoid arthritis without rheumatoid factor, unspecified site; E55.9 Vitamin D deficiency, unspecified; M85.89 Other specified disorders of bone density and structure, multiple sites; Z79.899 Other long term (current) drug therapy
CPT/HCPCS: 36415; 80053; 82306; 85025; 85652; 86140; 99212

== ENCOUNTER 2024-11-02 14:10 | Outpatient (REF) | payer MEDICARE, SELFPAY ==
--- NOTE | ~2024-11-02 | MM_ITS ---
EXAMINATION: MM SCREENING DIGITAL BREAST TOMOSYNTHESIS, BILATERAL CLINICAL INFORMATION: Screening. Asymptomatic. COMPARISON: Mammography: Comparison is made with available priors TECHNIQUE: Digital breast mammography with tomosynthesis is performed in both the craniocaudal and mediolateral oblique views along with computer-aided detection (CAD). FINDINGS: There are scattered areas of fibroglandular density (ACR BI-RADS breast composition Category b). Left: Focal asymmetry upper outer breast middle to posterior depth. No suspicious calcifications or other abnormal findings. Right: There are no significant masses, abnormal calcifications, or other abnormalities. MM/MM tomosynthesis screening BI IMPRESSION: Additional imaging is recommended ASSESSMENT: BI-RADS BI-RADS 0 - Incomplete: Needs additional Imaging. RECOMMENDATION: 1. Additional views of the left breast. 2. Targeted ultrasound if warranted after review of the additional views. 3. Radiology department staff will contact the patient for additional imaging. Additional Imaging required This examination should not preclude the clinical evaluation of a suspicious palpable abnormality. This patient's information was entered into a reminder system with a target due date for their next mammogram. Electronically signed by: Suyapa Lopez DO 11/08/2024 04:47 PM EDT
--- NOTE | ~2024-11-02 | MM_ITS ---
EXAMINATION: BONE DENSITOMETRY CLINICAL INDICATION: Parental hip fracture. Early menopause. COMPARISON: This is the patient's baseline examination. TECHNIQUE: Using a Fieldwire dual-energy x-ray absorptiometry was performed of the lumbar spine. The images are of good technical quality. Summary results are attached. FINDINGS: AP SPINE L1-L4: BMD 0.366 g/cm2, Z-score 4.3, T-score 1.5, . Left FEMUR, NECK: BMD 0.845 g/cm2, Z-score 1.0, T-score -1.4,. LEFT FEMUR, TOTAL: BMD 0.870 g/cm2, Z-score 1.2, T-score -1.1, . IDENTIFIED RISK FACTORS: None listed. HISTORY OF FRACTURE: None listed. MEDICATIONS: Vitamin D MM/XR DEXA axial skeleton IMPRESSION: 1. DIAGNOSIS: Normal bone density based on the lowest T-score value of 1.5 in the applying World Health Organization criteria. 2. 10-YEAR FRACTURE RISK PREDICTION, FRAX: 10.6 %. 3. Treatment Recommendations: NOF guidelines recommend consideration for treatment in postmenopausal women and men age 50 and older presenting with the following: -A hip or vertebral (clinical or morphometric) fracture. -T-score less than or equal to -2.5 at the femoral neck or spine after appropriate evaluation to exclude secondary causes. -Low bone mass at the hip or spine and a 10-year fracture probability by FRAX of greater than or equal to 3% for hip fracture or greater than or equal to 20% for major osteoporotic fracture based on the [place] adapted WHO algorithm. FUTURE SCAN RECOMMENDATION: People with diagnosed cases of osteoporosis or at high risk for fracture should have regular bone mineral density tests. For patients eligible for Medicare, routine testing is allowed once every 2 years. The testing frequency can be increased to one year for patients who have rapidly progressing disease, those who are receiving or discontinuing medical therapy to restore bone mass, or have additional risk factors. Electronically signed by: Scott Nicole MD 11/03/2024 08:03 AM EDT
--- OUTSIDE RECORDS SUMMARY | 2024-11-02 16:34 | XMS_ITS | Patient Health Record ---
Author Organization [facility] Address [address] [place] [address] Care Team Providers Care Director Telecommunications Name Role Phone RILEYZOHRA Primary Care Provider Lito Gutierrez Jr Unavailable [phone] Allergies Allergen (clinical drug ingredient) Drug/Non Drug [...] Problem Status W/U Status Risk Notes Problem [id number] Colon cancer screening (Z12.11) Active confirmed Problem [id number] Long-term use of aspirin therapy (Z79.82) Active confirmed Plan Of Treatment Future Test Test Name Order Date COLONOSCOPY 11/27/2016 Insurance Providers Payer Name Payer Address Payer Phone Subscriber Number Group Number Insured Name Patient Relationship to Insured Coverage Start Date Coverage End Date [facility] [address] [place] [address] [phone] [id number] CAS JASON Self - patient is the insured Medical (General) History Medical History History ICD Code elevated cholesterol Surgical History Surgery Date(Month/Year) appendectomy ovarian cyst resection tubal ligation submandibular cyst- Dr. cardoso
== END 2024-11-02 14:11 | disposition home or self-care (01) ==
LOC: HO.MAMMO 14:10
PROVIDERS: PCP Internal Medicine; Visit Provider Internal Medicine
DX: Z12.31 Encounter for screening mammogram for malignant neoplasm of breast (principal); Z13.820 Encounter for screening for osteoporosis; M85.89 Other specified disorders of bone density and structure, multiple sites; E21.0 Primary hyperparathyroidism
CPT/HCPCS: 77063; 77067; 77080

== ENCOUNTER → 2024-11-02 15:00 | Outpatient (BNV) | payer MEDICARE, SELFPAY | PROVIDERS: PCP Internal Medicine; Visit Provider Radiology Diagnostic Radiology | DX: E28.39 Other primary ovarian failure (principal) | CPT/HCPCS: 77080 ==

== ENCOUNTER 2024-12-05 11:24 | Outpatient (REF) | payer MEDICARE, SELFPAY ==
--- NOTE | ~2024-12-05 | MM_ITS ---
EXAMINATION: MM DIAGNOSTIC DIGITAL BREAST TOMOSYNTHESIS, LEFT Limited left breast ultrasound. CLINICAL INFORMATION: Call back from screening for focal asymmetry in the left breast. COMPARISON: Mammography: Priors on PACS. TECHNIQUE: Digital breast tomosynthesis is performed in both the craniocaudal and mediolateral oblique views along with computer-aided detection (CAD). Synthesized 2D images are generated from the tomosynthesis. FINDINGS: There are scattered areas of fibroglandular density. Focal asymmetry in the central outer breast persists is a circumscribed oval mass at middle depth. No suspicious calcifications or other abnormal findings. Targeted color Doppler ultrasound scanning in the lateral left breast from 1-5 o'clock demonstrates at 3:00 7 cm from the nipple a hypoechoic oval circumscribed solid mass versus complicated cyst measuring 8 x 5 x 3 mm this correlates with the focal asymmetry.. MM/MM tomosynthesis added views L IMPRESSION: Left: Solid mass versus complicated cyst at 3:00 7 cm from the nipple correlating with a focal asymmetry on mammography. Recommend 6 month follow-up for further evaluation of stability. ASSESSMENT: BI-RADS Category 3: Probably benign RECOMMENDATION: 6 Month F/U Results were provided to the patient at time of visit by the technologist. This patient's information was entered into a reminder system with a target due date for their next mammogram. Electronically signed by: Suyapa Lopez DO 12/05/2024 12:31 PM EDT
--- OUTSIDE RECORDS SUMMARY | 2024-12-05 14:01 | XMS_ITS | Patient Health Record ---
Author Organization [facility] Address [address] [place] [address] Care Team Providers Care Air Conditioning Manager Name Role Phone RILEYZOHRA Primary Care Provider [...] Problem Status W/U Status Risk Notes Problem [id number] Colon cancer screening (Z12.11) Active confirmed Problem [id number] Long-term use of aspirin therapy (Z79.82) Active confirmed Plan Of Treatment Future Test Test Name Order Date COLONOSCOPY 11/27/2016 Insurance Providers Payer Name Payer Address Payer Phone Subscriber Number Group Number Insured Name Patient Relationship to Insured Coverage Start Date Coverage End Date [facility] [address] [place] [address] [phone] [id number] CAS JASON Self - patient is the insured Medical (General) History Medical History History ICD Code elevated cholesterol Surgical History Surgery Date(Month/Year) appendectomy ovarian cyst resection tubal ligation submandibular cyst- Dr. cardoso
== END 2024-12-05 11:25 | disposition home or self-care (01) ==
LOC: HO.MAMMO 11:24
PROVIDERS: PCP Internal Medicine; Visit Provider Internal Medicine
DX: N64.89 Other specified disorders of breast (principal)
CPT/HCPCS: 76642; 77061; 77065

== ENCOUNTER → 2024-12-05 11:30 | Outpatient (BNV) | payer MEDICARE, SELFPAY | PROVIDERS: PCP Internal Medicine; Visit Provider Internal Medicine | DX: R92.8 Other abnormal and inconclusive findings on diagnostic imaging of breast (principal) | CPT/HCPCS: 76642; 77065; G0279 ==

== ENCOUNTER 2025-01-02 10:47 | Outpatient (AMB) | payer MEDICARE, SELFPAY ==
--- NOTE | 2025-01-02 10:51 | MHC.OFFVIS ---
Vital Signs 01/02/25 10:55 Height 5 ft 2.35 in Weight 181 lb 3.52 oz BMI 32.8 BP 136/82 Blood Pressure Location Rt brachial Position Sitting Pulse 76 Pulse Source Pulse Oximeter Pulse Oximetry (%) 96 Oxygen Delivery Method Room Air Intake Visit Reasons: f/u hyperparathyroidism Intake Note: Patient present today for Hyperparathyroidism follow up. Explosive Ordnance Disposal Manager Required: No Accompanied by: Self / Same As Patient Allergies nicotine (NICOTINE) Allergy (Intermediate, Verified 01/02/25 10:56) NICOTINE PATCH-BLISTERS, skin irritation/blisters, skin irritation/blisters amoxicillin (From AUGMENTIN) Adverse Reaction (Intermediate, Verified 01/02/25 10:56) VOMITING/DIARRHEA Latex Allergy (Mild, Uncoded 01/02/25 10:56) Rash Statins Support Adverse Reaction (Intermediate, Uncoded 01/02/25 10:56) muscle cramps Medication List - Last Reconciled 01/02/25 by Dwayne Ochoa MD amlodipine 5 mg PO DAILY cholecalciferol (vitamin D3) 25 mcg PO DAILY prednisone 1 mg PO DAILY HPI Comments Details: 69 YO Female with PMHx PMR on chronic low dose prednisone, Primary hyperparathyroidism who is seen in F/U for ? secondary Hyperparathyroidism and Osteopenia. Patient received diagnosis of PMR in 2018 and has remained on Prednisone ever since. Started at 20 mg PO daily and this dose has been slowly tapered to her current dose of 10 mg PO daily. She also has hyperparathyroidism with elevated Calcium levels noted as far back as 2008. Recent BMD revealed Osteopenia of the hip and the spine. She was treated with 1 dose of Prolia 01/25/2019, but had a flare of her PMR shortly after so her Manager Placement has recommended the Prolia be discontinued. She then was transitioned to Reclast and had 1 dose of this October 2019, second 01/04/2021. She is seen today in F/U. We repeated lab work which confirmed hyperparathyroidism with PTH of 81, Total Calcium of 10.1 with Albumin WNL, and Vitamin D of 27. DEXA of the forearm was ordered, and revealed osteopenia. Repeat PTH was within normal limits as was calcium Interestingly her daughter has a similar presentation. No history of pathologic fracture or ONJ. Has no servings of dairy daily. Takes Vitamin D 1000 IU daily. Does not take a Calcium supplement. Uses Prednisone 10 mg PO daily and has been slowly tapering this. Has been on Prednisone use for over 2 year due to her PMR. Denies ever using PPI, anticoagulant, or antiepileptic medication. Does weight bearing exercise days per week in the form of. Fracture history: Never broken a bone. Height loss: Denies height loss. RECREATIONAL DIRECTOR history: Menarche was age 10. Menses was always regular. Menopause at age 47. , did not breastfeed. History of Kidney stones: No history of kidney stones. Family history of hip fracture in her mother. No known family history of Osteoporosis. UTD on dental cleanings and sees dentist every 6 months. No planned upcoming dental work or extractions. DXA dated: 08/22/2020 L1-L4: T = -0.1 LFN: T = -1.7 RFN: T = -1.3 RTH: T = -0.8 Distal L Forearm: T = -1.6 US Kidney: 09/06/18 FINDINGS: RIGHT KIDNEY: 9.7 x 5.1 x 5.0 cm (SAG x AP x TRV). The kidney is normal in size, contour, and echogenicity. Renal cortical thickness is normal. No calculi or focal parenchymal lesions. No hydronephrosis. LEFT KIDNEY: 10.5 x 5.0 x 4.9 cm (SAG x AP x TRV). The kidney is normal in size, contour, and echogenicity. Renal cortical thickness is normal. No calculi or focal parenchymal lesions. No hydronephrosis. IMPRESSION: Unremarkable examination. Labs: Laboratory Tests 10/31/21 10/31/21 11:20 11:20 Creatinine 0.72 Estimated GFR > 60 Albumin 4.2 25-OH Vitamin D Total 34.0 PTH Intact 76 Calcium (PTH Intact) 10.0 The patient is a 68-year-old female presenting for f/u with suspected primary hyperparathyroidism. The condition was first investigated by a toy department manager who noted elevated levels of parathyroid hormone (PTH) and calcium. There is a history of similar findings in the past, with prior follow-ups under Dr. Pack. The patient had a mildly elevated calcium and PTH level previously, prompting continued investigation. An evaluation of vitamin D levels was normal during a previous assessment and is slated for reassessment. Past testing in 2019 showed a slight elevation in 24-hour urine calcium, possibly indicative of the parathyroid issue. However, imaging studies have not revealed kidney stones, though there was an unconfirmed mention regarding the left-side imaging. Bone density evaluations have demonstrated low bone mass without osteoporosis, historically treated with Reclast. The patient shares concerns about lab variability between local and external labs. Recent workup with labs from [facility] ([facility]) showed mild vitamin-D deficiency with slight elevation of PTH consistent with possible secondary hyperparathyroidism. Repeat labs showed normal calcium with mildly elevated PTH which had markedly decreased and was slightly elevated The patient has been taking 2,000 IU of vitamin D3 daily, The patient has a history of osteopenia, which is a concern due to the potential impact of elevated PTH on bone density. There is no immediate concern for osteoporosis or kidney stones, but these are potential risks if the condition persists. [facility] Medical History Osteopenia of multiple sites Pain of both shoulder joints Impaired fasting glucose Goiter Dyslipidemia Hyperparathyroidism Vitamin D deficiency Primary hyperparathyroidism Osteopenia of femoral neck Essential hypertension Polymyalgia rheumatica Surgical History History of removal of cyst History of colonoscopy Family History Father HTN (hypertension) High cholesterol Dementia Mother Pneumonia Maternal Grandfather Unknown family medical history Maternal Grandmother Pneumonia Paternal Grandfather Unknown family medical history Paternal Grandmother Unknown family medical history Social History Household Members: None Housing: House Are you a primary long term care phlebotomist to a significant other at home: No Do you presently have visiting nurse or other home services: No Alcohol intake: current Alcohol intake frequency: a few times a month Alcohol type: wine Patient Tobacco Use Status: Former Tobacco user e-Cigarette/Vaping Use: Never Used service: No Current occupational status: retired Cognitive needs: No Hearing needs: No Vision needs: No Physical Exam Vital Signs: BMI result Body Mass Index 32.8 Assessment & Plan Assessment & Plan (1) Osteoporosis: Code(s): M81.0 - Age-related osteoporosis without current pathological fracture Category: Medical Plan: This 68-year-old white female with a history of low bone mass with chronic treatment for PMR with prednisone and methotrexate. She received 1 dose of Prolia and 2 doses of Reclast. Secondary workup was negative. NTX remains suppressed. Recent labs showed mild suppression of vitamin-D with elevation of PTH versus mild primary hyperparathyroidism. However repeat labs at [facility] showed persistent mild elevation of PTH with normal calcium levels. Differential diagnosis includes secondary hyperparathyroidism which could be secondary to vitamin-D deficiency or calcium leak considering the patient had hypercalciuria in the past resolving versus mild primary hyperparathyroidism. Either way, if primary hyperparathyroidism exists, there is no indication for parathyroid exploration considering there is no history of osteoporosis or kidney stones Plan is to continue the current regimen. We will recheck calcium, albumin, PTH, 25 hydroxy vitamin-D at [facility] in 4 months along with 24 hour urine for calcium and creatinine. We will continue vitamin-D supplementation and avoid calcium supplementation. Could consider use of low-dose hydrochlorothiazide in the future if 24 hour urine for calcium and creatinine remains elevated (2) Osteopenia of multiple sites: Comment: Dr. Pack, received Reclast 10/2019,12/2020, 12/2021 previously had one benoit of Prolia 12/2018 (stopped due to flare of PMR) Code(s): M85.89 - Other specified disorders of bone density and structure, multiple sites Category: Medical Plan: See above Plan See above Orders: Orders Vitamin D 25-OH Total 4 Months - Other specified disorders of bone density and structure, multiple sites Parathyroid Hormone Intact 4 Months - Other specified disorders of bone density and structure, multiple sites Calcium 4 Months . - Other specified disorders of bone density and structure, multiple sites Albumin Level 4 Months - Other specified disorders of bone density and structure, multiple sites Calcium, 24 Hr Ur 4 Months - Other specified disorders of bone density and structure, multiple sites Creatinine, 24 Hr Group 4 Months - Other specified disorders of bone density and structure, multiple sites Coding Level of Care Code Est Pt Level 3 (06485) Diagnoses Osteoporosis M81.0 Osteopenia of multiple sites M
[2025-01-02 10:55] VITALS: BP 136/82; PULSE 76; O2SAT 96; BMI 32.8
--- OUTSIDE RECORDS SUMMARY | 2025-01-02 13:11 | XMS_ITS | Patient Health Record ---
Author Organization [facility] Address [address] [place] [address] Care Team Providers Care Wood Shingle Roofer Name Role Phone RILEYZOHRA Primary Care Provider [...] Problem Status W/U Status Risk Notes Problem Colon cancer screening (876247979) Colon cancer screening (Z12.11) Active confirmed Problem Long-term current use of antiplatelet drug ([id number]) Long-term use of aspirin therapy (Z79.82) Active confirmed Plan Of Treatment Future Test Test Name Order Date COLONOSCOPY 11/27/2016 Insurance Providers Payer Name Payer Address Payer Phone Subscriber Number Group Number Insured Name Patient Relationship to Insured Coverage Start Date Coverage End Date [facility] [address] [place] [address] [id number] CAS JASON Self - patient is the insured Medical (General) History Medical History History ICD Code elevated cholesterol Surgical History Surgery Date(Month/Year) appendectomy ovarian cyst resection tubal ligation submandibular cyst- Dr. cardoso
== END 2025-01-02 11:26 | disposition home or self-care (01) ==
LOC: HO.ENCR 10:47
PROVIDERS: PCP Internal Medicine; Visit Provider Internal Medicine Endocrinology, Diabetes & Metabolism
DX: M81.0 Age-related osteoporosis without current pathological fracture (principal); M85.89 Other specified disorders of bone density and structure, multiple sites
CPT/HCPCS: 99213

== ENCOUNTER → 2025-01-02 10:47 | Outpatient (BNVA) | payer MEDICARE, SELFPAY | PROVIDERS: PCP Internal Medicine; Visit Provider Internal Medicine Endocrinology, Diabetes & Metabolism | DX: M85.89 Other specified disorders of bone density and structure, multiple sites (principal); E21.3 Hyperparathyroidism, unspecified; M81.0 Age-related osteoporosis without current pathological fracture | CPT/HCPCS: 99212 ==

== ENCOUNTER 2025-02-20 10:08 | Outpatient (REF) | payer MEDICARE, SELFPAY ==
--- OUTSIDE RECORDS SUMMARY | 2025-02-20 12:14 | XMS_ITS | Patient Health Record ---
Author Organization [facility] Address [address] [place] [address] Care Team Providers Care Pig Breeder Name Role Phone ZOHRA LIN Primary Care Provider Lito Gutierrez Jr Unavailable Allergies Allergen (clinical drug ingredient) Drug/Non Drug Allergy documented on EMR Reaction Allergy Type Onset Date Status Latex latex (uncoded) Unknown Allergy Acti ve amoxicillin / clavulanate Augmentin Unknown Drug Allergy Active Reason For Referral No Information Medications Medication SIG (Take, Route, Frequency, Duration) Notes Start Date End Date Status Aspirin EC 325 MG Tablet Delayed Release 1 tablet Orally Once a day Active Social History Tobacco Use: Social History Observation Description Date Details (start date - stop date) Former Smoker NA - NA Social History Drugs/Alcohol: Social Info Question Answer Notes Alcohol Screen Did you have a drink containing alcohol in the past year? Yes How often did you have a drink containing alcohol in the past year? Monthly or less (1 point) How many drinks did you have on a typical day when you were drinking in the past year? 1 or 2 drinks (0 point) How often did you have 6 or more drinks on one occasion in the past year? Never (0 point) Points 1 Interpretation Negative Tobacco Use: Social Info Question Answer Notes Tobacco Use/Smoking Patient is a former smoker How long has it been since you last smoked? 1-5 years Additional Details Category Social Info Options Details Miscellaneous: Marital status: Occupation: retired Problems Problem Type SNOMED Code ICD Code Onset Dates Problem Status W/U Status Risk Notes Problem Colon cancer screening (037684291) Colon cancer screening (Z12.11) Active confirmed Problem Long-term current use of antiplatelet drug (722753948116824) Long-term use of aspirin therapy (Z79.82) Active confirmed Plan Of Treatment Future Test Test Name Order Date COLONOSCOPY 11/27/2016 Insurance Providers Payer Name Payer Address Payer Phone Subscriber Number Group Number Insured Name Patient Relationship to Insured Coverage Start Date Coverage End Date [facility] [address] [place] [address] [id number] CAS JASON Self - patient is the insured Medical (General) History Medical History History ICD Code elevated cholesterol Surgical History Surgery Date(Month/Year) appendectomy ovarian cyst resection tubal ligation submandibular cyst- Dr. cardoso
[2025-02-20 13:41] LABS: MANUAL DIFF FLAG NO
[2025-02-20 14:08] LABS: Hematocrit 39.7 % (37.0-47.0); Hemoglobin 13.6 g/dl (12.0-16.0); Imm Gran Abs Auto 0.04 X10*3/uL (0.00-0.03); Imm Gran Pct Auto 0.5 % (0.0-0.4); Lymphocytes Absolute Auto 2.0 X10*3/uL (1.2-4.9); Mean Corpuscular HGB Conc 34.3 g/dl (31.0-35.0); Mean Corpuscular Hemoglobin 31.9 pg (27.0-33.0); Mean Corpuscular Volume 93.2 fL (80.0-98.0); NRBC Abs Auto 0.000 X10*3/uL (0.0-0.012); NRBC Pct Auto 0.0 /100WBC (0.0-0.2); Platelet Count 122 X10*3/uL (160-400); Red Blood Count 4.26 X10*6/uL (4.20-5.50); White Blood Count 7.7 X10*3/uL (4.8-10.8)
[2025-02-20 14:35] LABS: Alanine Aminotransferase 37 U/L (0-31); Albumin Level 4.5 g/dL (3.5-5.0); Alkaline Phosphatase 84 U/L (39-117); Anion Gap 11 (12-20); Aspartate Amino Transferase 28 U/L (5-31); Blood Urea Nitrogen 12 mg/dL (9-16); Calcium 9.9 mg/dL (8.4-10.2); Carbon Dioxide 22 mmol/L (22-29); Chloride 110 mmol/L (96-108); Estimated Glomerular Filt Rate > 60; Potassium 4.1 mmol/L (3.3-5.1); Sodium 139 mmol/L (135-145); Total Protein 6.6 g/dL (6.5-8.0)
== END 2025-02-20 10:09 | disposition home or self-care (01) ==
LOC: HO.HMGCLDS 10:08
PROVIDERS: PCP Internal Medicine; Visit Provider Student in an Organized Health Care Education/Training Program
DX: Z79.899 Other long term (current) drug therapy (principal)
CPT/HCPCS: 36415; 80053; 85025; 85652; 86140